=== PATIENT | female | born 1945 | race Caucasian/White ===

== ENCOUNTER 2020-02-13 01:07 | Outpatient (CLI) | payer MEDICARE, OTHER, SELFPAY ==
[2020-02-13 19:16] LABS: SARS-CoV-2 RNA PCR Negative
== END 2020-02-13 01:08 | disposition home or self-care (01) ==
LOC: ANHCOVIDDT 01:09
PROVIDERS: PCP Family Medicine; Visit Provider Internal Medicine Cardiovascular Disease
DX: Z01.818 Encounter for other preprocedural examination (principal); Z11.59 Encounter for screening for other viral diseases
CPT/HCPCS: 87635; C9803; U0003

== ENCOUNTER 2020-02-15 05:42 | Day surgery (SDC) | payer MEDICARE, OTHER, SELFPAY ==
[2020-02-14 12:44] VITALS: BMI 66.6
[2020-02-15] VITALS (9 sets, daily range): BP systolic 103–170; BP diastolic 65–118; PULSE 72–91; RESP 12–21; O2SAT 93–100
--- NOTE | 2020-02-15 07:00 | ECG_ITS ---
Measurements Intervals [place] Rate: 83 P: [place]: 0 QRS: 9 QRSD: 96 T: 66 QT: 393 QTc: 462 Interpretive Statements ATRIAL FIBRILLATION LOW QRS VOLTAGE IN PRECORDIAL LEADS BASELINE ARTIFACT- II, III, AVF ABNORMAL ECG Electronically Signed On 02-15-2020 7:40:43 CDT by Gary Rooney D.O.
[2020-02-15 08:23] LABS: Blood Urea Nitrogen 16 mg/dL (7-17); Calcium 9.4 mg/dL (8.4-10.2); Carbon Dioxide 32 mmol/L (22-30); Chloride 98 mmol/L (98-107); Estimated CRCL calculation 75 ml/min; Estimated Glomerular Filt Rate 54; Glucose 139 mg/dL (65-105); Magnesium 1.4 mg/dL (1.6-2.3); Potassium 4.2 mmol/L (3.4-5.0); Sodium 136 mmol/L (137-145)
--- NOTE | 2020-02-15 08:38 | WPDHPUPDATE1 ---
History and Physical Update Update Date/Time: 02/15/20 08:38 History and Physical has been reviewed, including an updated exam of the patient. There are NO changes in the patient's condition. Risks, benefits, and alternatives have been discussed and questions answered. Patient agrees to proceed with procedure.
--- NOTE | 2020-02-15 08:38 | WPDMODSED ---
Moderate Sedation Note-Pt Data Patient Data Diagnosis: Atrial fibrillation Present Complaint: none Procedure to be performed/Plan: Elective electrical cardioversion Allergies Allergy/AdvReac Type Severity Reaction Status Date / Time bacitracin Allergy Unknown Unknown Verified 01/30/20 08:48 neomycin Allergy Unknown Unknown Verified 01/30/20 08:48 Penicillins Allergy Unknown Unknown Verified 01/30/20 08:48 polymyxin B Allergy Unknown Unknown Verified 01/30/20 08:48 Home Medications Medication Instructions Recorded Confirmed Type duloxetine 60 mg PO DAILY 06/08/19 02/14/20 History metformin 500 mg PO BID 06/08/19 02/14/20 History modafinil 200 mg PO BID 06/08/19 02/14/20 History apixaban [Eliquis] 5 mg PO Q12HR #60 tablet 06/09/19 02/14/20 Rx lisinopril-hydrochlorothiazide 1 tablet PO DAILY 06/09/19 02/14/20 History sodium oxybate 2,250 mg PO DIRECTED 06/09/19 02/14/20 History trazodone 50 mg tablet 50 mg PO .QHS tablet 06/15/19 02/14/20 History levothyroxine 200 mcg tablet 200 mcg PO DAILY #90 tablet 10/10/19 02/14/20 Rx cephalexin 500 mg capsule 500 mg PO Q12H #10 cap 01/15/20 02/14/20 Rx ergocalciferol (vitamin D2) 1,250 50,000 unit PO WEEKLY #12 cap 01/19/20 02/14/20 Rx mcg (50,000 unit) capsule atorvastatin 10 mg tablet 10 mg PO DAILY #90 tablet 01/31/20 02/14/20 Rx amiodarone 400 mg PO DAILY 02/14/20 02/14/20 History metoprolol succinate 25 mg PO DAILY 02/14/20 02/14/20 History Current Medications: Active Medications Sodium Chloride (Normal Saline Iv) 1,000 mls @ 30 mls/hr IV CONT .Q24H KHADAR Sedation/Anesthesia: No previous sedation/anesthesia problems (including family history). Will utilize CPAP support given history of MOISE. [facility] Past Medical History Medical History CKD (chronic kidney disease) stage 3, GFR 30-59 ml/min Endometrial thickening on ultrasound Hypertensive chronic kidney disease with stage 1 through stage 4 chronic kidney disease, or unspecified chronic kidney disease Hypothyroidism, unspecified Right hip pain Type 2 diabetes mellitus with other diabetic kidney complication Family History Family History Father Hypertension Family history of coronary artery disease Social History Social History Smoking packs per day: 0.75 Smoking cigarettes per day: 15.0 Years smoked: 30 Smoking pack-years: 22.50 Smoking status: Former smoker Tobacco type: cigarettes Second hand tobacco smoke exposure: Yes Alcohol intake: current Alcohol use details: rarely Substance use: never Substance use type: does not use Living arrangements: with family Gender identity (if verbalized by the patient): Female Spiritual care concerns: No Mod Sed Physical Exam Physical Exam Pre Procedural Exam: Normal: Appearance, Eyes, Ears, Nose, Neck (Obese neck, normal range of motion), Throat (Posterior hypopharynx clear, nonerythematous), Airway (Normal anatomy, no obstruction), Lungs (Clear to auscultation bilaterally), Heart Size, Heart Rate, Neuro Exam, Abdomen, Liver, Extremities (Mild edema bilaterally) and Skin and Variation: Heart Rhythm (Irregular irregular rate and rhythm) and Extremities (Mild edema bilaterally) Hours since solid foods: 12 Hours since liquid intake: 12 Internal Medicine - PN: Obj Da Vital Signs Vital Signs: Vital Signs - 24 hr 02/15/20 07:46 Pulse Rate 91 Respiratory Rate 21 H Blood Pressure 160/118 H Pulse Oximetry 96 Meds/Results Medications: Active Medications Generic Name Dose Route Start Last Admin Trade Name Freq PRN Reason Stop Dose Admin Sodium Chloride 1,000 mls @ 30 mls/hr 02/15/20 06:00 Normal Saline Iv IV CONT .Q24H KHADAR Labs CBC & Chem 7: 02/15/20 07:43 Labs: Laboratory Results - last 24 hr 02/15/20 07:43 Sodium 136 L Potassium 4.
--- NOTE | 2020-02-15 08:41 | P.PCNCVR_ITS ---
Cardioversion Cardioversion Date of procedure: 02/15/20 Procedure: Elective electrical cardioversion Pre-op diagnosis: Atrial fibrillation Post-op diagnosis: same Indications: Atrial fibrillation Description of procedure: Brief history present illness: Patient is a pleasant 75-year-old female with history morbid obesity, persistent atrial fibrillation which she tolerates rather poorly, diabetes mellitus, hypertension, obstructive sleep apnea on CPAP who was initiated on Amiodarone approximately 4 weeks ago due to symptomatic, refractory atrial fibrillation and is now referred for elective electrical cardioversion in attempt to restore sinus rhythm. Procedure in detail: After verbal and written informed consent was obtained the patient risks, benefits, and alternatives explained in detail the patient agreed to proceed with the plan of care as outlined above. Patient was evaluated at bedside in the [facility] procedure room. On examination, neck was supple with normal range of motion, no restrictions to opening of the oral cavity, jaw angle and posterior hypopharynx was clear. Lungs were clear to auscultation. Patient was placed in appropriate 30 to 45 degree angle in a supine position. Patient was monitored throughout the study with telemetry, oxygen saturation, end-tidal CO2 monitoring, blood pressure, heart rate, and respirations. Anterior and posterior defibrillator pads placed in the appropriate positions. After confirmation of adequate sedation electrical cardioversion was carried out without complication. Patient tolerated the procedure well without difficulty. Moderate Sedation/Anesthesia administration: Patient denied previous intolerance or complications with anesthesia/sedation. Prior to beginning sedation, respiratory therapy was asked to set the patient up on CPAP given her home use for obstructive sleep apnea. Home pressure support of 15 cm of water. Please see sedation note for documentation of the pre- procedure physical examination. As noted above, after adequate local anesthesia of the posterior hypopharynx was achieved, a total of mg intravenous Versed and a total of mcg intravenous Fentanyl in multiple divided doses was utilized for moderate sedation. Sedation start time was 0850 and end time was 0903 for a total of 13 minutes [id number] intra-procedure time. Sedation was administered by a qualified observer Yossi Calderon RN under my supervision with intra-procedure [id number] observation and management throughout the entirety of the procedure. There were no other issues or complications and patient tolerated the procedure well and sedation protocol well and I was present for the entirety. Pt was satisfactorily fitted for CPAP prior to and throughout the procedure and tolerated sedation very well without complication. Elective electrical cardioversion: After confirmation of adequate sedation and persistence of atrial fibrillation, 200 joules synched biphasic energy x2 was delivered but was unsuccessful at restoring sinus rhythm. Complications: None Recommendations: Continue current medical therapy. Do not interrupt anticoagulation for at least 30 days post cardioversion. Referral to Electrophysiology for further management options for symptomatic, refractory atrial fibrillation despite excellent HR control.
--- NOTE | 2020-02-15 09:26 | SUR.PHASEII ---
0903-pt out of procedure after x2 unsuccessful cardioversion attempts. Pt remains on CPAP until she is completely awake. No distress noted. Will continue to monitor.
--- NOTE | 2020-02-15 12:46 | SUR.PHASEII ---
1030-pt given D/C orders and instructions. Questions answered and verbalized understanding. AOx4. Taken via wheelchair to waiting vehicle. No distress noted or verbalized at time of departure.
== END 2020-02-15 10:30 | disposition home or self-care (01) ==
PROVIDERS: PCP Family Medicine; Visit Provider Internal Medicine Cardiovascular Disease
PROC: 5A2204Z Restoration of Cardiac Rhythm, Single (ICD-10-PCS; principal; 2020-02-15 08:30)
DX: I48.19 Other persistent atrial fibrillation (principal); I12.9 Hypertensive chronic kidney disease with stage 1 through stage 4 chronic kidney disease, or unspecified chronic kidney disease; E11.22 Type 2 diabetes mellitus with diabetic chronic kidney disease; N18.3 Chronic kidney disease, stage 3 (moderate); G47.33 Obstructive sleep apnea (adult) (pediatric); E03.9 Hypothyroidism, unspecified; Z79.84 Long term (current) use of oral hypoglycemic drugs; Z79.01 Long term (current) use of anticoagulants; Z87.891 Personal history of nicotine dependence; E66.01 Morbid (severe) obesity due to excess calories; Z68.44 Body mass index [BMI] 60.0-69.9, adult
CPT/HCPCS: 36415; 80048; 83735; 92960; 93005; J2250; J2310; J3010; J7040

== ENCOUNTER 2020-08-07 11:57 | Inpatient (IN) | payer MEDICARE, OTHER, SELFPAY ==
[2020-08-07] VITALS (31 sets, daily range): BP systolic 128–161; BP diastolic 73–89; PULSE 68–86; RESP 17–28; TEMP 36.1–36.3; O2SAT 79–100; BMI 66.5
--- NOTE | ~2020-08-07 | XR_ITS ---
EXAMINATION: XR chest 1V portable DATE: 08/07/2020 12:27 INDICATION: Shortness of breath. Hypoxia. TECHNIQUE: frontal view of the chest was obtained. COMPARISON: Chest radiograph and CT dated 06/05/2019 FINDINGS: The lungs remain clear with no focal airspace opacities, pulmonary edema, pleural effusion or pneumot horax. Maame megaly with prominent right paracardial fat pad which is exaggerated by slight rightward rotation of the patient. Three lead pacemaker seen with leads projecting over the expected locations of the right atrial appendage, apex of the right ventricle and overlying the left ventricle likely h aving traversed the coronary sinus. IMPRESSION: 1. Cardiomegaly. Reviewed, dictated and finalized at location A. SCIENTIST IMPRESSION: 1. Cardiomegaly.
--- NOTE | ~2020-08-07 | XR_ITS ---
XR chest 1V portable 08/13/2020 08:48 Indication: CHF exacerbation Procedure: AP portable chest Comparison: 07/21/2020 Findings: Cardiomegaly. Pacemaker leads are stable. No focal air space disease, pulmonary edema, pleu ral effusion or suspected pneumothorax. Impression: 1: No acute cardiopulmonary disease. Reviewed, dictated and finalized at location A. RETTE MAKING MACHINE CATCHER Impression: 1: No acute cardiopulmonary disease.
--- NOTE | 2020-08-07 12:07 | ECG_ITS ---
Measurements Intervals [place] Rate: 72 P: [place]: 0 QRS: 165 QRSD: 182 T: 49 QT: 479 QTc: 525 Interpretive Statements ELECTRONIC VENTRICULAR PACEMAKER BASELINE ARTIFACT- I, II, AVR, AVL, AVF, V1, V3-V4 NO FURTHER INTERPRETATION IS POSSIBLE ATYPICAL ECG Electronically Signed On 08-07-2020 14:28:00 [facility]EL [place]OTA by Gary Rooney D.O.
[2020-08-07 12:16] LABS: Basophils Percent Auto 0.3 % (0.2-1.2); Eosinophils Absolute Auto 0.2 K/mm3 (0-0.3); Eosinophils Percent Auto 2.4 % (0-4.4); Hemoglobin 8.5 g/dL (12.0-15.0); Immature Granulocyte Absolute 0.04 K/mm3 (0.00-0.031); Immature Granulocyte Percent A 0.5 % (0-0.5); Lymphocytes Absolute Auto 0.73 K/mm3 (0.9-3.2); Lymphocytes Percent Auto 9.8 % (18.3-44.2); Mean Corpuscular HGB Conc 28.3 g/dl (32-36); Mean Corpuscular Hemoglobin 24.2 pg (26-34); Mean Corpuscular Volume 85.5 fl (80-100); Mean Platelet Volume 9.4 fl (7.4-10.4); Monocytes Absolute Auto 0.5 K/mm3 (0.1-0.6); Monocytes Percent Auto 6.6 % (2.6-8.5); Neutrophils Percent Auto 80.4 % (45.5-73.1); Nucleated Red Blood Cells Perc 0.3 % (0.0-0.2); Platelet Count Result 261 k/mm3 (150-375); Red Blood Count 3.51 M/mm3 (4.2-5.4); Red Cell Distribution Width 19.1 % (11.5-14.5); White Blood Count 7.4 K/mm3 (4.5-10.0)
--- NOTE | 2020-08-07 12:29 | ED.SOB ---
HPI - SOB/Dyspnea General Chief Complaint: Shortness of Breath/Dyspnea Stated Complaint: SOB, FALL IN SHOWER, R ARM PAIN Time Seen by Provider: 08/07/20 12:04 History of Present Illness HPI Narrative: Patient is a 75-year-old female who presents ER with shortness of breath. Progressive over the last 2 weeks. Not typically oxygen dependent but now requiring 3 L of oxygen via nasal cannula. Patient reports she opted to come in today because she has not been getting better and she had a fall in her shower when her stool collapsed beneath her. She did not strike her head or lose consciousness. No chest pain or chest pressure. She reports she is more swollen than typical. She reports that she has a prescription for Lasix that she does not take because it is hard to get to the bathroom. No fevers or chills or sweats. She is without cough. Related Data Home Medications Medication Instructions Recorded Confirmed modafinil 200 mg PO DAILY 06/08/19 08/07/20 sodium oxybate 4.5 g PO DIRECTED 06/09/19 08/07/20 trazodone 50 mg tablet 50 mg PO .QHS tablet 06/15/19 08/07/20 metoprolol succinate 25 mg PO DAILY 02/14/20 08/09/20 levothyroxine 200 mcg PO DAILY 08/07/20 08/07/20 modafinil 100 mg PO 1200 08/07/20 08/07/20 Allergies Allergy/AdvReac Type Severity Reaction Status Date / Time bacitracin Allergy Intermediate Swelling Verified 08/07/20 17:49 neomycin Allergy Intermediate Swelling Verified 08/07/20 17:49 Penicillins Allergy Unknown Unknown Verified 08/07/20 17:49 polymyxin B Allergy Unknown Unknown Verified 08/07/20 17:49 Review of Systems Review of Systems: All systems reviewed & are unremarkable except as noted in HPI and below Constitutional: Constitutional: Denies chills, Denies fever(s) and Reports weakness ENT: Denies nasal congestion and Denies sore throat Cardiovascular: Cardiovascular: Denies chest pain and Denies radiating jaw, neck or arm pain Respiratory: Respiratory: Denies cough, Reports dyspnea and Denies wheezing Gastrointestinal: Gastrointestinal: Denies abdominal pain, Denies nausea and Denies vomiting Musculoskeletal: Musculoskeletal: Denies joint swelling and Denies muscle cramps Comments: Edema PMFSH Past Medical History Medical History Atrial fibrillation Failed cardioversion x2. Status post AV malathi ablation and biventricular pacemaker insertion on 04/22/2020. Chronic kidney disease, stage 3 Baseline creatinine is around 1.0. 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 Family History Family History Father Hypertension Family history of coronary artery disease Social History Social History Social History: The patient lives in [facility] with her . They have 4 sons. She retired from working at the [employer] in [place]. She smoked 0.5 to 0.75 packs of cigarettes a day for about 30 years and quit in 1994. No alcohol or illicit substance abuse. Her Juan David and son Andrea are her surrogate decision makers and she is listed as a full code. Smoking packs per day: 0.75 Smoking cigarettes per day: 15.0 Years smoked: 30 Smoking pack-years: 22.50 Smoking status: Former smoker Tobacco type: cigaret
[2020-08-07 12:31] LABS: Alanine Aminotransferase 13 U/L (4-35); Alkaline Phosphatase 73 U/L (38-126); Anion Gap 7 mmol/L (8-16); Aspartate Amino Transferase 21 U/L (14-36); Bilirubin,Total 0.6 mg/dL (0.2-1.3); Blood Urea Nitrogen 18 mg/dL (7-17); Calcium 9.3 mg/dL (8.4-10.2); Carbon Dioxide 35 mmol/L (22-30); Chloride 96 mmol/L (98-107); Estimated CRCL calculation 68 ml/min; Estimated Glomerular Filt Rate 49; Glucose 143 mg/dL (65-105); Potassium 4.2 mmol/L (3.4-5.0); Sodium 138 mmol/L (137-145)
[2020-08-07 12:35] LABS: Eosinophils Absolute Manual 0.22 K/mm3 (0.02-0.5); Eosinophils Percent Manual 3 % (0-4); Hypochromasia 2+ (NORMAL); Lymphocytes Absolute Manual 0.59 K/mm3 (1.1-4.5); Monocytes Absolute Manual 0.22 K/mm3 (0.1-0.90); Monocytes Percent Manual 3 % (3-9); Neutrophils Percent Manual 86 % (46-73); Platelet Estimate Adequate (Adequate); Total Cells Counted 100
[2020-08-07 12:36] LABS: Anisocytosis 1+ (NORMAL); Stomatocytes 1+ (NORMAL)
[2020-08-07 13:05] LABS: NT Pro B Type Natriuretic Pept 1610 PG/ML (5-100)
[2020-08-07 13:13] LABS: INR 1.6; Prothrombin Time 19.5 Seconds (11.1-14.7)
[2020-08-07 13:14] LABS: Partial Thromboplastin Time 35.4 SECONDS (22.3-36.8)
[2020-08-07] MEDS: FUROSEMIDE INJ 40 MG/4 ML VIAL IV PUSH ×2 (14:31→21:01)
--- NOTE | 2020-08-07 15:37 | PC.NURSE ---
ATTEMPTED TO CALL REPORT AT THIS TIME, INFORMED THAT THE RN IS AT LUNCH AND THE ROOM IS DIRTY. TO CALL BACK.
--- NOTE | 2020-08-07 15:51 | PC.NURSE ---
REPORT TO RN LORI AT THIS TIME, NO FURTHER CONCERNS, ROOM IS STILL DIRTY PER RN.
--- NOTE | 2020-08-07 17:26 | ADMGEN ---
This patient, Lesvia Pop, was admitted to Medical Room 347-01. Patient/family oriented to hospital policies and general routines including ID bracelet, bed and alarms, visiting hours, pain management, procedures, bathroom and other care routines, personal items, smoking policy, room service/diet, and visiting hours. Information on how to activate the Rapid Response Team has been discussed. Patient/Family are encouraged to report perceived risks to care and to ask questions if they do not understand what they are told or what they should do.
[2020-08-07 18:18] LABS: Base Excess ABG 4.4 mEq/l (+/-2.0); Carboxyhemoglobin 0.2 % THb (0-2.0); Fractional Inspired Oxygen 32 %; HCO3 ABG 29.9 mEq/l (22.0-26.0); Methemoglobin ABG 0.3 %THb (0-1.5); Oxygen Content ABG 12.6 %vol (16.0-22.0); Oxygen Saturation ABG 98.1 % (95.0-100.0); Oxyhemoglobin 96.7 % THb (90.0-100.0); PCO2 ABG 49.7 mmHg (35.0-45.0); PO2 FiO2 Ratio Arterial Blood 3.53 %; Reduced Hemoglobin 2.8 %THb (0-5.0); Total Hemoglobin 9.1 g/dL (12.0-18.0); pH ABG 7.397 (7.350-7.450)
[2020-08-07 18:19] LABS: Device NASAL CANNULA; Modified Allen's Test Pass; Site Drawn RIGHT RADIAL
[2020-08-07 18:44] LABS: Immature Reticulocyte Fraction 32.8 % (3.0-15.9); Reticulocyte Hemoglobin Conten 22.7 pg (28.2-35.7); Reticulocyte Percent 2.79 % (0.7-4.3)
[2020-08-07 18:53] LABS: Hemoglobin A1C 6.3 % (<5.7)
--- NOTE | 2020-08-07 19:00 | PM.IMHP ---
H&P: HPI History of Present Illness Date/Time: 08/07/20 19:00 Chief Complaint: Shortness of breath. Narrative: Lesvia Pop is a 75-year-old female with atrial fibrillation status post cardiac ablation and Bi V pacemaker insertion, chronic anemia, type 2 diabetes mellitus, hypothyroidism, morbid obesity, obstructive sleep apnea, and narcolepsy presented to the emergency department earlier today via EMS for evaluation after a fall as well as increasing shortness of breath over the past 2 weeks. She was in the shower this morning when her shower chair collapsed beneath her, and EMS was summoned for a lift assist. She sustained no injury in the fall and denies head trauma and loss of consciousness. On their arrival she was noted to be hypoxic and short of breath and with further questioning she mentions that she has had progressive dyspnea on lesser and lesser exertion over the past month and a half. In fact she was seen by Dr. Cox at the beginning of June at which time he told her to double up on her Lasix for 5 days. Unfortunately she has gotten worse instead of better. It is also noted that she has become progressively more anemic with a hemoglobin of 12.6 on 04/22/2020, 9.0 on 06/14/2020, and 8.50 today. She has been on Eliquis for greater than 1 year and has not noticed any bleeding. She does have hemorrhoids which rarely bleed, nothing recent. No dark stools. No epistaxis, melena, or hematuria. She denies chest pain, epigastric pain, abdominal pain, nausea, vomiting, pleuritic pain, orthopnea, and PND. Review of Systems Review of Systems: Narrative: Twelve systems were reviewed with pertinent positives and negatives as per HPI. No fever, chills, or sweats. No recent cold or flu symptoms. She denies cough. No exposure to those positive for COVID-19. She denies dysuria. She believes her diabetes is well controlled. No polydipsia, polyuria, or blurry vision. Except as documented, all other systems were reviewed and are negative. [facility] Past Medical History Medical History (Updated 08/07/20 @ 18:18 by Lisa Roland PA-C) Atrial fibrillation Failed cardioversion x2. Status post AV malathi ablation and biventricular pacemaker insertion on 04/22/2020. Chronic kidney disease, stage 3 Baseline creatinine is around 1.0. 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 Hypertension Hypothyroidism Morbid obesity Narcolepsy Obstructive sleep apnea on CPAP Osteoarthritis Restless leg syndrome Type 2 diabetes mellitus Urinary Incontinence Vitamin D deficiency Surgical History Surgical History (Updated 08/07/20 @ 18:11 by Lisa Roland PA-C) History of atrioventricular malathi ablation (~04/22/20) History of bilateral cataract extraction History of dilation and curettage History of laparoscopic adjustable gastric banding (~2012) Status post biventricular cardiac pacemaker insertion (~04/22/20) Status post excision of Ulloa's neuroma Left 3rd toe. Family History Family History Father Hypertension Family history of coronary artery disease Social History Social History (Updated 08/07/20 @ 18:12 by Lisa Roland PA-C) Social History: The patient lives in [facility] with her . They have 4 sons. She retired from working at the [employer] in [place]. She smoked 0.5 to 0.75 packs of cigarettes a day for about 30 years and quit in 1994. No alcohol or illicit substance abuse. Her Juan David and son Andrea are her surrogate decision makers and she is listed as a full code. Smoking packs per day: 0.75 Smoking cigarettes per day: 15.0 Years smoked: 30 Smoking pack-years: 22.50 Smoking status: Former smoker Tobacco type: cigarettes Second hand tobacco smoke exposure: Yes Alcohol intake: former Substance use: never Substance use type: does not use Gender identity (if verbalized by the patient): F
[2020-08-07 19:04] LABS: Transferrin 337 mg/dL (206-381)
[2020-08-07 19:31] LABS: Iron 35 ug/dL (37-170)
[2020-08-07 19:40] LABS: Percent Iron Saturation 7 % (20-50)
[2020-08-07 20:04] LABS: Folic Acid > 20.0 ng/mL (2.76->20)
[2020-08-07 21:13] LABS: Glucose Point of Care 162 (65-105)
[2020-08-08] VITALS (12 sets, daily range): BP systolic 133–144; BP diastolic 78–87; PULSE 69–73; RESP 16–18; TEMP 36.1–36.8; O2SAT 90–96
[2020-08-08] MEDS: ACETAMINOPHEN 325 MG TABLET 650 MG PO (05:16)
[2020-08-08] MEDS: LEVOTHYROXINE SODIUM 100 MCG TABLET 200 MCG PO (05:17)
[2020-08-08 06:09] LABS: Hematocrit 28.4 % (37.0-47.0); Hemoglobin 7.7 g/dL (12.0-15.0); Mean Corpuscular HGB Conc 27.1 g/dl (32-36); Mean Corpuscular Hemoglobin 23.2 pg (26-34); Mean Corpuscular Volume 85.5 fl (80-100); Mean Platelet Volume 9.3 fl (7.4-10.4); Platelet Count Result 264 k/mm3 (150-375); Red Blood Count 3.32 M/mm3 (4.2-5.4); Red Cell Distribution Width 19.1 % (11.5-14.5); White Blood Count 6.5 K/mm3 (4.5-10.0)
[2020-08-08 06:23] LABS: Anion Gap 5 mmol/L (8-16); Blood Urea Nitrogen 16 mg/dL (7-17); Calcium 9.3 mg/dL (8.4-10.2); Carbon Dioxide 39 mmol/L (22-30); Chloride 94 mmol/L (98-107); Estimated CRCL calculation 72 ml/min; Estimated Glomerular Filt Rate 49; Glucose 137 mg/dL (65-105); Magnesium 1.5 mg/dL (1.6-2.3); Potassium 3.7 mmol/L (3.4-5.0); Sodium 138 mmol/L (137-145)
[2020-08-08 07:38] LABS: Glucose Point of Care 126 (65-105)
[2020-08-08] MEDS: ATORVASTATIN 10 MG TABLET PO (08:06)
[2020-08-08] MEDS: MAGNESIUM OXIDE 400 MG TABLET 800 MG PO (08:06)
[2020-08-08] MEDS: FUROSEMIDE INJ 40 MG/4 ML VIAL IV PUSH ×3 (08:06→16:51)
[2020-08-08] MEDS: DULoxetine HCL 60 MG CAPSULE.DR PO (08:06)
[2020-08-08] MEDS: modafiniL (*CRX) 200 MG TABLET PO (08:06)
[2020-08-08] MEDS: APIXABAN 5 MG TABLET PO ×2 (08:06→21:26)
[2020-08-08] MEDS: METOPROLOL SUCCINATE EXT REL 25 MG TABCR 75 MG PO (08:07)
--- NOTE | 2020-08-08 10:32 | PM.IMPN ---
Progress Note: A&P Assessment and Plan (1) Respiratory failure with hypoxia: Code(s): J96.91 - Respiratory failure, unspecified with hypoxia Status: Acute Assessment and Plan: Pt is stable on 1 liter presently and CPAP at night SOB secondary to CHF exacerbation, Morbidity hypoventilation syndrome Will start diuretics and consult cardiology (2) Normocytic anemia: Code(s): D64.9 - Anemia, unspecified Status: Acute Assessment and Plan: Hb is 7.7 (3) Fall from chair: Code(s): W07.XXXA - Fall from chair, initial encounter Status: Acute (4) Narcolepsy: Code(s): G47.419 - Narcolepsy without cataplexy Status: Acute Assessment and Plan: History of narcolepsy (5) Morbid obesity: Code(s): E66.01 - Morbid (severe) obesity due to excess calories Status: Acute Assessment and Plan: Bedridden (6) Chronic kidney disease, stage 3: Code(s): N18.30 - Chronic kidney disease, stage 3 unspecified Status: Inactive Assessment and Plan: CReat is 1.1 (7) Atrial fibrillation: Code(s): I48.91 - Unspecified atrial fibrillation Status: Acute Assessment and Plan: HIstory of Af and ICD (8) Dyslipidemia: Code(s): E78.5 - Hyperlipidemia, unspecified Status: Acute Assessment and Plan: on statin (9) Type 2 diabetes mellitus: Code(s): E11.9 - Type 2 diabetes mellitus without complications Status: Inactive Assessment and Plan: accuchecks, SSI (10) Obstructive sleep apnea on CPAP: Code(s): G47.33 - Obstructive sleep apnea (adult) (pediatric); Z99.89 - Dependence on other enabling machines and devices Status: Acute Assessment and Plan: Uses Cpap (11) Hypothyroidism: Code(s): E03.9 - Hypothyroidism, unspecified Status: Inactive Assessment and Plan: On levothyroxine (12) Generalized weakness: Code(s): R53.1 - Weakness Status: Acute Assessment and Plan: PT/ OT (13) Hypertension: Code(s): I10 - Essential (primary) hypertension Status: Chronic Assessment and Plan: MOnitor Bp Subjective Date/time seen: 08/08/20 10:32 Interval history: Donn is a 75-year-old female with atrial fibrillation status post cardiac ablation and Bi V pacemaker insertion, chronic anemia, type 2 diabetes mellitus, hypothyroidism, morbid obesity, obstructive sleep apnea, and narcolepsy presented to the emergency department earlier today via EMS for evaluation after a fall as well as increasing shortness of breath over the past 2 weeks. Pt looks swollen feet legs abdomen history of CHF Cxr shows cardiomegaly. Review of Systems Review of Systems: All systems reviewed & are unremarkable except as noted in HPI and below Exam Narrative: Exam Narrative: General: Morbidly obese female Neck: Supple. large neck Respiratory: Lung sounds are diminished due to body habitus. Cardiovascular: Regular rate and rhythm with S1-S2. Gastrointestinal: Abdomen is morbidly obese with positive bowel sounds. Positive leg edema Skin: Warm and dry. Extremities: No cyanosis or clubbing. 3+ edema up to the flanks. Neurological: Alert and oriented x4. Cranial nerves 2-12 are grossly intact. No gross focal deficits to casual conversation. Psychiatric: Pleasant and cooperative with normal mood and affect. Judgment and insight intact. Objective Data Vital Signs Vital Signs: Vital Signs - 24 hr 08/07/20 11:53 08/07/20 12:03 08/07/20 12:04 Temperature 36.3 C L Pulse Rate 73 73 78 Respiratory Rate 28 H 24 H 22 H Blood Pressure 150/82 H 150/82 H Pulse Oximetry 79 L 100 100 08/07/20 12:08 08/07/20 12:26 08/07/20 12:30 Temperature Pulse Rate 86 71 70 Respiratory Rate 23 H 21 H Blood Pressure Pulse Oximetry 100 100 99 08/07/20 12:31 08/07/20 12:45 08/07/20 13:02 Temperature Pulse Rate 70 73 70 Re
--- NOTE | 2020-08-08 11:25 | PM.CNCAR ---
Assessment and Plan Assessment and plan (1) Normocytic anemia: Code(s): D64.9 - Anemia, unspecified Status: Acute Assessment and Plan: pt on eliquis qith gradual dropn in HB. ferritin 12 recommend GI consult. (2) CHF exacerbation: Code(s): I50.9 - Heart failure, unspecified Status: Acute Assessment and Plan: diastolic HF. increase lasix to 40 mg tid History of Present Illness History of Present Illness Consult date/time: Date of service: 08/08/20 11:25 Requesting physician: Samantha Kaufman MD Consult reason: congestive heart failure Reason For Visit: Hypoixia/CHF/Anemia Narrative: this is 75-year-old female with past medical history of hyperlipidemia, diabetes, diastolic heart failure, AFib status post AV node ablation on Eliquis( she also had cardioversion 02/2020), biventricularpacemaker, narcolepsy, morbid obesity who follows up with Dr. perales. apparently patient was in the shower was sitting in a chair and then the chest collapsed underneath her. she was getting short of breath and called EMS. shortness of breath started a couple days before that. Shortness of breath was progressively getting worse. apparently informed the patient to increase her Lasix for 5 days but his shortness of breath got worse. she is currently hypoxic requiring oxygen.Apparently a hemoglobin was 12.5 in April and currently 8.5.And today 7.7. she denies chest pain, dizziness, syncope. Creatinine 1.1, magnesium 1.5, hemoglobin today 7.7, chest x-ray reviewed myself shows cardiomegaly and congestion. EKG revealed massive shows ventricular paced rhythm. Review of Systems Constitutional: Constitutional: Denies chills, Denies fever(s) and Denies poor appetite Eyes: Eyes: Denies eye discharge, Denies loss of vision, Denies eye pain and Denies photophobia ENT: Denies dizziness, Denies epistaxis, Denies nasal congestion and Denies sore throat Cardiovascular: Cardiovascular: Denies chest pain, Denies syncope, Denies pedal edema, Denies palpitations, Reports dyspnea, Reports dyspnea on exertion and Reports orthopnea Respiratory: Respiratory: Denies cough, Reports dyspnea, Reports dyspnea on exertion and Denies wheezing Gastrointestinal: Gastrointestinal: Denies abdominal pain, Denies diarrhea, Denies nausea and Denies vomiting Genitourinary: Genitourinary: Denies hematuria, Denies genital lesions and Denies dysuria Musculoskeletal: Musculoskeletal: Denies arthralgias, Denies joint swelling and Denies numbness Integumentary/Breasts: Skin/Breast: Denies pruritus and Denies rash Neurologic: Denies dizziness, Denies syncope, Denies loss of vision and Denies numbness Psychiatric: Psychiatric: Denies anxiety and Denies depression Endocrine: Endocrine: Denies cold intolerance, Denies heat intolerance and Denies palpitations Hematologic/Lymphatic: Hematologic/Lymphatic: Denies easy bleeding and Denies easy bruising Allergic/Immunologic: Allergic/Immunologic: Denies urticaria and Denies wheezing PMFSH Past Medical History Medical History Atrial fibrillation Failed cardioversion x2. Status post AV malathi ablation and biventricular pacemaker insertion on 04/22/2020. Chronic kidney disease, stage 3 Baseline creatinine is around 1.0. 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 Hypertension Hypothyroidism Morbid obesity Narcolepsy Obstructive sleep apnea on CPAP Osteoarthritis Restless leg syndrome Type 2 diabetes mellitus Urinary Incontinence Vitamin D deficiency Surgical History Surgical History History of atrioventricular malathi ablation (~04/22/20) History of bilateral cataract extraction History of dilation and curettage History of laparoscopic adjustable gastric banding (~2012) Status post biventricular cardiac pacemaker insertion (~04/22/20) S
[2020-08-08 11:54] LABS: Glucose Point of Care 99 (65-105)
--- NOTE | 2020-08-08 12:28 | PC.NURSE ---
Increase Furosemide to TID for today, kidney function lab work tomorrow will determine whether we will stay TID or decrease back down to BID.
[2020-08-08] MEDS: modafiniL (*CRX) 100 MG TABLET PO (13:07)
--- NOTE | 2020-08-08 16:21 | WPDGIPROGNO ---
Progress Note: A&P Additional Plan LU. constipation Venofer Endoscopy when stable Miralax #[id number] Subjective Date/time seen: 08/08/20 16:21 Objective Data Vital Signs Vital Signs: Vital Signs - 24 hr 08/07/20 16:40 08/07/20 18:20 08/07/20 18:32 Temperature Pulse Rate 70 Respiratory Rate 19 Blood Pressure 148/73 H Pulse Oximetry 100 100 96 08/07/20 20:00 08/07/20 20:56 08/07/20 21:00 Temperature 36.1 C L Pulse Rate 70 73 70 Respiratory Rate 17 18 Blood Pressure 141/74 H Pulse Oximetry 99 94 08/07/20 21:51 08/08/20 00:00 08/08/20 04:00 Temperature Pulse Rate 70 70 70 Respiratory Rate 18 Blood Pressure Pulse Oximetry 94 08/08/20 05:13 08/08/20 08:00 08/08/20 08:07 Temperature 36.8 C Pulse Rate 70 73 69 Respiratory Rate 18 Blood Pressure 133/83 Pulse Oximetry 94 93 08/08/20 10:40 08/08/20 12:00 08/08/20 14:00 Temperature 36.1 C L Pulse Rate 73 72 Respiratory Rate 16 Blood Pressure 144/78 H Pulse Oximetry 90 95 Intake/Output Intake/Output: Intake & Output 08/05/20 08/06/20 08/07/20 08/08/20 23:59 23:59 23:59 23:59 Intake Total 240 1180 Output Total 1300 1800 Balance -1060 -620 Meds/Results Medications: Active Medications Generic Name Dose Route Start Last Admin Trade Name Freq PRN Reason Stop Dose Admin Acetaminophen 650 mg 08/07/20 14:26 08/08/20 05:16 Acetaminophen 325 Mg Tablet PO 650 mg Q4H PRN Administration Mild Pain (1-3) or Fever Hydrocodone Bitart/Acetaminophen 1 tab 08/07/20 14:26 Hydrocodone/Acetaminophen (*Crx) 5-325 Mg Tablet PO Q4H PRN Pain Rated 4-6 Apixaban 5 mg 08/08/20 09:00 08/08/20 08:06 Apixaban 5 Mg Tablet PO 5 mg Q12HR KHADAR Administration Atorvastatin Calcium 10 mg 08/08/20 09:00 08/08/20 08:06 Atorvastatin 10 Mg Tablet PO 10 mg DAILY KHADAR Administration Dextrose 12.5 gm 08/07/20 18:14 Dextrose 50% 25 Gm/50 Ml Syringe IV PUSH PRN PRN Hypoglycemia Protocol Duloxetine HCl 60 mg 08/08/20 09:00 08/08/20 08:06 Duloxetine Hcl 60 Mg Capsule.Dr PO 60 mg DAILY KHADAR Administration Ergocalciferol 50,000 unit 08/11/20 09:00 Ergocalciferol 50,000 Unit Capsule PO WEEKLY KHADAR Furosemide 40 mg 08/08/20 13:00 08/08/20 13:02 Furosemide Inj 40 Mg/4 Ml Vial IV PUSH 40 mg TID KHADAR Administration Glucagon 1 mg 08/07/20 18:14 Glucagon For Inj 1 Mg Vial IM PRN PRN Hypoglycemia Protocol Glucose 15 gm 08/07/20 18:14 Glucose Oral Gel 15 Gm Of Glucse In 37.5 Gm Tube PO PRN PRN Hypoglycemia Protocol Dextrose 1,000 mls @ 100 mls/hr 08/07/20 18:14 Dextrose 5% 1,000 Ml IVPB PRN PRN Hypoglycemia Protocol Insulin Aspart 2 - 5 units 08/07/20 17:00 08/08/20 12:13 Insulin Aspart (*Bkc) 100 Units/Ml SUB-Q Not Given TIDWM [facility] Protocol Levothyroxine Sodium 200 mcg 08/08/20 06:30 08/08/20 05:17 Levothyroxine Sodium 100 Mcg Tablet PO 200 mcg DAILY@0630 KHADAR Administration Magnesium Oxide 800 mg 08/08/20 09:00 08/08/20 08:06 Magnesium Oxide 400 Mg Tablet PO 800 mg DAILY KHADAR Administration Metoprolol Succinate 75 mg 08/08/20 09:00 08/08/20 08:07 Metoprolol Succinate Ext Rel 25 Mg Tabcr PO 75 mg DAILY KHADAR Administration Modafinil 100 mg 08/08/20 12:00 08/08/20 13:07 Modafinil (*Crx) 100 Mg Tablet PO 100 mg 1200 KHADAR Administration Modafinil 200 mg 08/08/20 09:00 08/08/20 08:06 Modafinil (*Crx) 200 Mg Tablet PO 200 mg DAILY KHADAR Administration Morphine Sulfate 4 mg 08/07/20 14:26 Morphine Sulfate (*Crx) 4 Mg/Ml Inj IV PUSH Q2H PRN Pain Rated 7-10 Ondansetron HCl 4 mg 08/07/20 14:26 Ondansetron Inj 4 Mg/2 Ml Vial IV PUSH Q4H PRN Nausea Trazodone HCl 50 mg 08/08/20 01:30 08/08/20 02:27 Trazodone Hcl 50 Mg Tablet PO Not Given HS KHADAR Radiology Resul
[2020-08-08 16:42] LABS: Glucose Point of Care 120 (65-105)
--- NOTE | 2020-08-08 20:01 | CONS_ITS ---
DATE OF CONSULTATION: 08/08/2020 HISTORY OF PRESENT ILLNESS: A 75-year-old female with history of atrial fibrillation status post ablation, biventricular pacemaker, chronic blood loss anemia, type 2 diabetes, chronic kidney disease, hypothyroidism, morbid obesity, failed lap band surgery, MOISE/CPAP, narcolepsy, hypertension, hyperlipidemia, osteoarthritis, restless legs syndrome, urinary incontinence, vitamin D deficiency, bilateral cataract extraction, and D and C, who presents with increasing shortness of breath and fall. She is being treated for CHF. I am now asked to provide GI evaluation at the request of the hospitalist service. Primary care provider is Dr. Masood Mccartney and primary lumber cutter is Dr. Hua Sarabia. The patient complains of mild constipation with bowel movements every 2-3 days with some straining. Partially improved with stool softeners. She has easy bruising. She otherwise denies abdominal pain, nausea, vomiting, heartburn, trouble swallowing, loss of appetite or weight, diarrhea, hematochezia, melena, fever, jaundice, scleral icterus, dark urine, light stools, itching, hot or cold intolerance, chest pain, hematuria, dysuria, new cough or visual changes, tingling of the skin, bone pain, or tremors. No endocarditis risk factors. ALLERGIES: ALLERGY TO PENICILLIN AND TRIPLE ANTIBIOTIC OINTMENT. MEDICATIONS: See list, but includes Eliquis. SOCIAL HISTORY: Nonsmoker, nondrinker. FAMILY HISTORY: Negative for GI malignancy. Her last colonoscopy was approximately [address] Sarabia, reportedly unremarkable. PHYSICAL EXAMINATION: GENERAL: Obese female, seated in her chair, in no apparent distress. She has 4+ bilateral lower extremity edema. No jaundice, spider angioma, palmar erythema. HEENT: Skull is normocephalic, atraumatic. Pupils nonicteric. Oropharynx clear. NECK: Supple without thyromegaly. LUNGS: Bibasilar crackles. HEART: Irregular. ABDOMEN: Normoactive bowel sounds. Soft, nontender, nonrigid, nondistended without hepatosplenomegaly or masses. RECTAL: Deferred. NEURO: Conscious and alert x3. LABORATORY DATA: On October 17, 2019, hematocrit 39. On admission, hemoglobin 8, hematocrit 28, MCV 86. Creatinine 1.1. INR is 1.6. LFTs are normal. Ferritin is 12. Retic count 2.8. Troponin T is 0.22. ASSESSMENT AND PLAN: A. Iron deficiency anemia in patient on Eliquis: - Concern for gastrointestinal source of blood loss including ulceration, arteriovenous malformation malignancy, or polyp - Consider colonoscopy, possible EGD, possible capsule endoscopy when stable from the cardiopulmonary standpoint - Follow H and H and transfuse as needed - Care with aspirin, nonsteroidals, and anticoagulants - IV iron while in hospital, changing to oral iron as outpatient - No active gastrointestinal bleed B. Constipation: consider bowel regimen MiraLAX. Thank you for allowing me to share in the care of this complex patient. I will continue to follow. RAUL CORNELIUS M.D. CC:? Shahbaz Jung M.D. VOICE OVER ARTIST VOICE OVER ARTIST D I MT: Yakelin AMATO
[2020-08-08] MEDS: traZODone HCL 50 MG TABLET PO (21:26)
[2020-08-08 21:32] LABS: Glucose Point of Care 123 (65-105)
[2020-08-09] VITALS (12 sets, daily range): BP systolic 128–144; BP diastolic 67–78; PULSE 69–85; RESP 18–20; TEMP 35.7–36.2; O2SAT 90–100
[2020-08-09] MEDS: LEVOTHYROXINE SODIUM 100 MCG TABLET 200 MCG PO (06:07)
[2020-08-09 06:11] LABS: Hematocrit 30.7 % (37.0-47.0); Hemoglobin 8.4 g/dL (12.0-15.0); Mean Corpuscular HGB Conc 27.4 g/dl (32-36); Mean Corpuscular Hemoglobin 23.5 pg (26-34); Mean Platelet Volume 9.7 fl (7.4-10.4); Platelet Count Result 292 k/mm3 (150-375); Red Blood Count 3.57 M/mm3 (4.2-5.4); Red Cell Distribution Width 18.7 % (11.5-14.5); White Blood Count 7.7 K/mm3 (4.5-10.0)
[2020-08-09 06:32] LABS: Blood Urea Nitrogen 18 mg/dL (7-17); Calcium 9.5 mg/dL (8.4-10.2); Carbon Dioxide > 40 mmol/L (22-30); Chloride 91 mmol/L (98-107); Estimated CRCL calculation 72 ml/min; Estimated Glomerular Filt Rate 49; Glucose 131 mg/dL (65-105); Potassium 3.5 mmol/L (3.4-5.0); Sodium 136 mmol/L (137-145)
[2020-08-09] MEDS: modafiniL (*CRX) 200 MG TABLET PO (09:07)
[2020-08-09] MEDS: FUROSEMIDE INJ 40 MG/4 ML VIAL IV PUSH ×3 (09:07→17:39)
[2020-08-09] MEDS: ATORVASTATIN 10 MG TABLET PO (09:08)
[2020-08-09] MEDS: APIXABAN 5 MG TABLET PO ×2 (09:08→21:45)
[2020-08-09] MEDS: DULoxetine HCL 60 MG CAPSULE.DR PO (09:08)
[2020-08-09] MEDS: MAGNESIUM OXIDE 400 MG TABLET 800 MG PO (09:08)
[2020-08-09 09:37] LABS: Glucose Point of Care 133 (65-105)
--- NOTE | 2020-08-09 11:32 | WPDGIPROGNO ---
Progress Note: A&P Additional Plan GI Tam for No 09 Aug 2019 No gi complaints. Less SOB. VSS soft/NT + [place] Hct 31. Retic 2.8. Cr 1.1 LABORATORY DATA: On October 17, 2019, hematocrit 39. On admission, hemoglobin 8, hematocrit 28, MCV 86. Creatinine 1.1. INR is 1.6. LFTs are normal. Ferritin is 12. Retic count 2.8. Troponin T is 0.22. ASSESSMENT AND PLAN: A. Iron deficiency anemia in patient on Eliquis: - Concern for gastrointestinal source of blood loss including ulceration, arteriovenous malformation malignancy, or polyp - Consider colonoscopy, possible EGD, possible capsule endoscopy when stable from the cardiopulmonary standpoint - Follow H and H and transfuse as needed - Care with aspirin, nonsteroidals, and anticoagulants - IV iron while in hospital, changing to oral iron as outpatient - No active gastrointestinal bleed B. Constipation: consider bowel regimen MiraLAX. WILLIAM Jones [phone] Subjective Date/time seen: 08/09/20 11:32 Objective Data Vital Signs Vital Signs: Vital Signs - 24 hr 08/08/20 12:00 08/08/20 14:00 08/08/20 16:00 Temperature 36.1 C L Pulse Rate 73 72 70 Respiratory Rate 16 Blood Pressure 144/78 H Pulse Oximetry 95 08/08/20 20:00 08/08/20 22:00 08/08/20 23:05 Temperature 36.4 C L Pulse Rate 72 71 72 Respiratory Rate 18 18 Blood Pressure 139/87 Pulse Oximetry 96 96 94 08/09/20 00:00 08/09/20 04:00 08/09/20 06:00 Temperature 36.2 C L Pulse Rate 71 70 70 Respiratory Rate 20 Blood Pressure 143/78 H Pulse Oximetry 98 08/09/20 11:08 Temperature Pulse Rate Respiratory Rate Blood Pressure Pulse Oximetry 96 Intake/Output Intake/Output: Intake & Output 08/06/20 08/07/20 08/08/20 08/09/20 23:59 23:59 23:59 23:59 Intake Total 240 1620 470 Output Total 1300 2200 800 Balance -1060 -580 -330 Meds/Results Medications: Active Medications Generic Name Dose Route Start Last Admin Trade Name Freq PRN Reason Stop Dose Admin Acetaminophen 650 mg 08/07/20 14:26 08/08/20 05:16 Acetaminophen 325 Mg Tablet PO 650 mg Q4H PRN Administration Mild Pain (1-3) or Fever Hydrocodone Bitart/Acetaminophen 1 tab 08/07/20 14:26 Hydrocodone/Acetaminophen (*Crx) 5-325 Mg Tablet PO Q4H PRN Pain Rated 4-6 Apixaban 5 mg 08/08/20 09:00 08/09/20 09:08 Apixaban 5 Mg Tablet PO 5 mg Q12HR KHADAR Administration Atorvastatin Calcium 10 mg 08/08/20 09:00 08/09/20 09:08 Atorvastatin 10 Mg Tablet PO 10 mg DAILY KHADAR Administration Dextrose 12.5 gm 08/07/20 18:14 Dextrose 50% 25 Gm/50 Ml Syringe IV PUSH PRN PRN Hypoglycemia Protocol Duloxetine HCl 60 mg 08/08/20 09:00 08/09/20 09:08 Duloxetine Hcl 60 Mg Capsule.Dr PO 60 mg DAILY KHADAR Administration Ergocalciferol 50,000 unit 08/11/20 09:00 Ergocalciferol 50,000 Unit Capsule PO WEEKLY KHADAR Furosemide 40 mg 08/08/20 13:00 08/09/20 09:07 Furosemide Inj 40 Mg/4 Ml Vial IV PUSH 40 mg TID KHADAR Administration Glucagon 1 mg 08/07/20 18:14 Glucagon For Inj 1 Mg Vial IM PRN PRN Hypoglycemia Protocol Glucose 15 gm 08/07/20 18:14 Glucose Oral Gel 15 Gm Of Glucse In 37.5 Gm Tube PO PRN PRN Hypoglycemia Protocol Dextrose 1,000 mls @ 100 mls/hr 08/07/20 18:14 Dextrose 5% 1,000 Ml IVPB PRN PRN Hypoglycemia Protocol Insulin Aspart 2 - 5 units 08/07/20 17:00 08/09/20 09:01 Insulin Aspart (*Bkc) 100 Units/Ml SUB-Q Not Given TIDWM [facility] Protocol Levothyroxine Sodium 200 mcg 08/08/20 06:30 08/09/20 06:07 Levothyroxine Sodium 100 Mcg Tablet PO 200 mcg DAILY@0630 KHADAR Administration Magnesium Oxide 800 mg 08/08/20 09:00 08/09/20 09:08 Magnesium Oxide 400 Mg Tablet PO 800 mg DAILY KHADAR Administration Metoprolol Succinate 25 mg 08/09/20 10:30 Metoprolol Succinate Ext Rel 25 Mg Tabcr PO DAILY KHADAR Mod
[2020-08-09 11:49] LABS: Glucose Point of Care 113 (65-105)
--- NOTE | 2020-08-09 11:59 | PM.PNCARD ---
Progress Note: A&P Assessment and Plan (1) CHF exacerbation: Code(s): I50.9 - Heart failure, unspecified Status: Acute Assessment and Plan: Acute on chronic heart failure with preserved ejection fraction. Responding well to IV Lasix increased to 40 mg t.i.d.. May be able to reduce in a.m.. Potassium chloride 40 mg p.o. x1 today, 20 MEQ p.o. daily. Check BMP and magnesium in a.m.. Accurate input and output, daily weight. (2) Normocytic anemia: Code(s): D64.9 - Anemia, unspecified Status: Acute Assessment and Plan: pt on eliquis, H&H stable. Appreciate GI recommendations. Plan for endoscopy on Wednesday. Anticipate will need to hold systemic anticoagulation beginning tomorrow per GI. Will clarify with him. (3) Presence of biventricular cardiac pacemaker: Code(s): Z95.0 - Presence of cardiac pacemaker Status: Acute Assessment and Plan: Predominantly V paced on telemetry. (4) Atrial fibrillation: Code(s): I48.91 - Unspecified atrial fibrillation Status: Acute Assessment and Plan: As above, status post AV malathi ablation. Remains on systemic anticoagulation. Subjective Date/time seen: Date of service: 08/09/20 11:59 Follow-up for CHF, atrial fibrillation Feels little better. Urinating quite frequently, dyspnea improved but still short of breath with any activity, edema improving. No chest pain, palpitations or dizziness. Review of Systems Constitutional: Constitutional: Denies chills, Denies fever(s) and Denies poor appetite Eyes: Eyes: Denies eye discharge, Denies loss of vision, Denies eye pain and Denies photophobia ENT: Denies dizziness, Denies epistaxis, Denies nasal congestion and Denies sore throat Cardiovascular: Cardiovascular: Denies chest pain, Denies syncope, Denies pedal edema, Denies palpitations, Reports dyspnea, Reports dyspnea on exertion and Reports orthopnea Respiratory: Respiratory: Denies cough, Reports dyspnea, Reports dyspnea on exertion and Denies wheezing Gastrointestinal: Gastrointestinal: Denies abdominal pain, Denies diarrhea, Denies nausea and Denies vomiting Genitourinary: Genitourinary: Denies hematuria, Denies genital lesions and Denies dysuria Musculoskeletal: Musculoskeletal: Denies arthralgias, Denies joint swelling and Denies numbness Integumentary/Breasts: Skin/Breast: Denies pruritus and Denies rash Neurologic: Denies dizziness, Denies syncope, Denies loss of vision and Denies numbness Psychiatric: Psychiatric: Denies anxiety and Denies depression Endocrine: Endocrine: Denies cold intolerance, Denies heat intolerance and Denies palpitations Hematologic/Lymphatic: Hematologic/Lymphatic: Denies easy bleeding and Denies easy bruising Allergic/Immunologic: Allergic/Immunologic: Denies urticaria and Denies wheezing Exam Const: General: cooperative, comfortable, no acute distress, alert and awake Nutritional Appearance: obese Orientation/consciousness: patient oriented x3 HENMT: Head: normal to inspection, normocephalic and atraumatic Ears: hearing grossly normal bilaterally General nose exam: Normal external nose present, Normal nares present and no nasal discharge noted Face and sinus: normal facial exam and no erythema Mouth: No drooling and No restricted motion Throat: uvula midline Eyes: General: appearance normal, both eyes and all related structures Alignment and Position: position normal Conjunctivae: conjunctivae normal Sclera: sclerae normal Direct Ophthalmoscopy: No photophobia Neck: Neck: normal visual inspection and no JVD Thyroid: thyroid normal Carotids: no bruits Lymphatic: lymphedema not noted Chest: Chest palpation & inspection: normal inspection of the chest and no tenderness Resp: Effort & Inspection: normal respiratory effort and no nasal flaring Auscultation: clear to auscultation bilaterally, crackles (Faint at bilateral bases), no wheezes and diminished lung sounds C
[2020-08-09] MEDS: METOPROLOL SUCCINATE EXT REL 25 MG TABCR PO (13:00)
[2020-08-09] MEDS: modafiniL (*CRX) 100 MG TABLET PO (13:21)
[2020-08-09] MEDS: POTASSIUM CHLORIDE 20 MEQ TABLET 40 MEQ PO (13:21)
--- NOTE | 2020-08-09 14:37 | PM.IMPN ---
Progress Note: A&P Assessment and Plan (1) Respiratory failure with hypoxia: Code(s): J96.91 - Respiratory failure, unspecified with hypoxia Status: Acute Assessment and Plan: Pt is stable on RA in the day and CPAP at night SOB secondary to CHF exacerbation AND Morbidity hypoventilation syndrome (2) Normocytic anemia: Code(s): D64.9 - Anemia, unspecified Status: Acute Assessment and Plan: Hb is 7.7 continue to monior hb pt will benefit from colonscopy/ EGD Pt is on eliquis for anticoagulation for AF (3) Fall from chair: Code(s): W07.XXXA - Fall from chair, initial encounter Status: Acute (4) Narcolepsy: Code(s): G47.419 - Narcolepsy without cataplexy Status: Acute Assessment and Plan: History of narcolepsy (5) Morbid obesity: Code(s): E66.01 - Morbid (severe) obesity due to excess calories Status: Acute Assessment and Plan: Bedridden (6) Chronic kidney disease, stage 3: Code(s): N18.30 - Chronic kidney disease, stage 3 unspecified Status: Inactive Assessment and Plan: CReat is 1.1 (7) Atrial fibrillation: Code(s): I48.91 - Unspecified atrial fibrillation Status: Acute Assessment and Plan: HIstory of Af and ICD on Anticoagulation (8) Dyslipidemia: Code(s): E78.5 - Hyperlipidemia, unspecified Status: Acute Assessment and Plan: on statin (9) Type 2 diabetes mellitus: Code(s): E11.9 - Type 2 diabetes mellitus without complications Status: Inactive Assessment and Plan: accuchecks, SSI (10) Obstructive sleep apnea on CPAP: Code(s): G47.33 - Obstructive sleep apnea (adult) (pediatric); Z99.89 - Dependence on other enabling machines and devices Status: Acute Assessment and Plan: Uses Cpap (11) Hypothyroidism: Code(s): E03.9 - Hypothyroidism, unspecified Status: Inactive Assessment and Plan: On levothyroxine (12) Generalized weakness: Code(s): R53.1 - Weakness Status: Acute Assessment and Plan: PT/ OT (13) Hypertension: Code(s): I10 - Essential (primary) hypertension Status: Chronic Assessment and Plan: Chronic and stable BP 128/67 (14) CHF exacerbation: Code(s): I50.9 - Heart failure, unspecified Status: Acute Assessment and Plan: Will continue iv lasix tid for diuresis. Acute on chronic heart failure diastolic exacerbation, with potassium supplementation, BMP monitoring Pt has history of ICD Subjective Date/time seen: 08/09/20 14:37 Interval history: Donn is a 75-year-old female with atrial fibrillation status post cardiac ablation and Bi V pacemaker insertion, chronic anemia, type 2 diabetes mellitus, hypothyroidism, morbid obesity, obstructive sleep apnea, and narcolepsy presented to the emergency department earlier today via EMS for evaluation after a fall as well as increasing shortness of breath over the past 2 weeks. Pt lis doing better with iv diuresis, less swollen. Pt is found to have iron deficiency anaemia, pt benefits from EGD and colonoscopy. Review of Systems Review of Systems: All systems reviewed & are unremarkable except as noted in HPI and below Exam Narrative: Exam Narrative: General: Morbidly obese Neck: Supple. large neck Respiratory: Lung sounds are diminished Cardiovascular: Regular rate and rhythm with S1-S2. Gastrointestinal: Abdomen is morbidly obese with positive bowel sounds. Positive leg edema 2+ up to mid shins Skin: Warm and dry. Extremities: No cyanosis or clubbing. 3+ edema up to the flanks. Neurological: Alert and oriented x4. Cranial nerves 2-12 are grossly intact. No gross focal deficits to casual conversation. Psychiatric: Pleasant and cooperative with normal mood and affect. Judgment and insight intact. Objective Data Vital Signs Vital Signs: Vital Signs - 24 hr
[2020-08-09 20:53] LABS: Glucose Point of Care 124 (65-105)
[2020-08-09] MEDS: traZODone HCL 50 MG TABLET PO (21:45)
[2020-08-09 21:53] LABS: Glucose Point of Care 115 (65-105)
[2020-08-10] VITALS (12 sets, daily range): BP systolic 121–136; BP diastolic 61–84; PULSE 70–77; RESP 16–20; TEMP 35.8–36.6; O2SAT 90–100
[2020-08-10 05:47] LABS: Hematocrit 28.4 % (37.0-47.0); Hemoglobin 7.9 g/dL (12.0-15.0); Mean Corpuscular HGB Conc 27.8 g/dl (32-36); Mean Corpuscular Hemoglobin 23.7 pg (26-34); Mean Corpuscular Volume 85.3 fl (80-100); Mean Platelet Volume 9.6 fl (7.4-10.4); Platelet Count Result 246 k/mm3 (150-375); Red Blood Count 3.33 M/mm3 (4.2-5.4); Red Cell Distribution Width 18.6 % (11.5-14.5); White Blood Count 6.6 K/mm3 (4.5-10.0)
[2020-08-10] MEDS: LEVOTHYROXINE SODIUM 100 MCG TABLET 200 MCG PO (06:13)
[2020-08-10 06:18] LABS: Blood Urea Nitrogen 18 mg/dL (7-17); Calcium 9.1 mg/dL (8.4-10.2); Carbon Dioxide > 40 mmol/L (22-30); Chloride 90 mmol/L (98-107); Estimated CRCL calculation 70 ml/min; Estimated Glomerular Filt Rate 49; Glucose 144 mg/dL (65-105); Potassium 3.4 mmol/L (3.4-5.0); Sodium 136 mmol/L (137-145)
[2020-08-10 07:41] LABS: Glucose Point of Care 121 (65-105)
[2020-08-10] MEDS: modafiniL (*CRX) 200 MG TABLET PO (08:38)
[2020-08-10] MEDS: FUROSEMIDE INJ 40 MG/4 ML VIAL IV PUSH ×3 (08:38→17:04)
[2020-08-10] MEDS: ATORVASTATIN 10 MG TABLET PO (08:38)
[2020-08-10] MEDS: DULoxetine HCL 60 MG CAPSULE.DR PO (08:39)
[2020-08-10] MEDS: METOPROLOL SUCCINATE EXT REL 25 MG TABCR PO (08:39)
[2020-08-10] MEDS: MAGNESIUM OXIDE 400 MG TABLET 800 MG PO (08:39)
[2020-08-10] MEDS: APIXABAN 5 MG TABLET PO (08:39)
[2020-08-10] MEDS: POTASSIUM CHLORIDE 20 MEQ TABLET.ER PO (08:39)
--- NOTE | 2020-08-10 10:40 | WPDGIPROGNO ---
Progress Note: A&P Additional Plan GI Tam for No 10 Aug 2019 No gi complaints. Less SOB. VSS soft/NT + TR[place]ON (decreased) Hct 31->28. Retic 2.8. Cr 1.1 LABORATORY DATA: On October 17, 2019, hematocrit 39. On admission, hemoglobin 8, hematocrit 28, MCV 86. Creatinine 1.1. INR is 1.6. LFTs are normal. Ferritin is 12. Retic count 2.8. Troponin T is 0.22. ASSESSMENT AND PLAN: A. Iron deficiency anemia in patient on Eliquis: - Concern for gastrointestinal source of blood loss including ulceration, arteriovenous malformation malignancy, or polyp - Consider colonoscopy, possible EGD, possible capsule endoscopy when stable from the cardiopulmonary standpoint - Follow H and H and transfuse as needed - Care with aspirin, nonsteroidals, and anticoagulants - IV iron while in hospital, changing to oral iron as outpatient - No active gastrointestinal bleed B. Constipation: consider bowel regimen MiraLAX. Case discussed with Dr. Lan Kaufman who feels patient will be stable for endoscopy by Dr. Sarabia 08-12-2020. Thanks, [facility] [phone] Subjective Date/time seen: 08/10/20 10:40 Objective Data Vital Signs Vital Signs: Vital Signs - 24 hr 08/09/20 11:08 08/09/20 12:00 08/09/20 13:00 Temperature Pulse Rate 85 70 Respiratory Rate Blood Pressure Pulse Oximetry 96 08/09/20 14:00 08/09/20 16:00 08/09/20 20:03 Temperature 35.7 C L 36.0 C L Pulse Rate 75 70 80 Respiratory Rate 20 18 Blood Pressure 128/67 144/74 H Pulse Oximetry 100 90 08/09/20 21:00 08/09/20 22:25 08/10/20 00:00 Temperature Pulse Rate 73 69 70 Respiratory Rate Blood Pressure Pulse Oximetry 95 08/10/20 05:06 08/10/20 06:00 08/10/20 08:39 Temperature 36.6 C Pulse Rate 71 77 71 Respiratory Rate 20 Blood Pressure 128/76 Pulse Oximetry 91 Intake/Output Intake/Output: Intake & Output 08/07/20 08/08/20 08/09/20 08/10/20 23:59 23:59 23:59 23:59 Intake Total 240 1620 1230 1240 Output Total 1300 2200 3750 1200 Balance -0850 -580 -2520 40 Meds/Results Medications: Active Medications Generic Name Dose Route Start Last Admin Trade Name Janay PRN Reason Stop Dose Admin Acetaminophen 650 mg 08/07/20 14:26 08/08/20 05:16 Acetaminophen 325 Mg Tablet PO 650 mg Q4H PRN Administration Mild Pain (1-3) or Fever Hydrocodone Bitart/Acetaminophen 1 tab 08/07/20 14:26 Hydrocodone/Acetaminophen (*Crx) 5-325 Mg Tablet PO Q4H PRN Pain Rated 4-6 Apixaban 5 mg 08/08/20 09:00 08/10/20 08:39 Apixaban 5 Mg Tablet PO 5 mg Q12HR KHADAR Administration Atorvastatin Calcium 10 mg 08/08/20 09:00 08/10/20 08:38 Atorvastatin 10 Mg Tablet PO 10 mg DAILY KHADAR Administration Dextrose 12.5 gm 08/07/20 18:14 Dextrose 50% 25 Gm/50 Ml Syringe IV PUSH PRN PRN Hypoglycemia Protocol Duloxetine HCl 60 mg 08/08/20 09:00 08/10/20 08:39 Duloxetine Hcl 60 Mg Capsule.Dr PO 60 mg DAILY KHADAR Administration Ergocalciferol 50,000 unit 08/11/20 09:00 Ergocalciferol 50,000 Unit Capsule PO WEEKLY KHADAR Furosemide 40 mg 08/08/20 13:00 08/10/20 08:38 Furosemide Inj 40 Mg/4 Ml Vial IV PUSH 40 mg TID KHADAR Administration Glucagon 1 mg 08/07/20 18:14 Glucagon For Inj 1 Mg Vial IM PRN PRN Hypoglycemia Protocol Glucose 15 gm 08/07/20 18:14 Glucose Oral Gel 15 Gm Of Glucse In 37.5 Gm Tube PO PRN PRN Hypoglycemia Protocol Dextrose 1,000 mls @ 100 mls/hr 08/07/20 18:14 Dextrose 5% 1,000 Ml IVPB PRN PRN Hypoglycemia Protocol Insulin Aspart 2 - 5 units 08/07/20 17:00 08/10/20 08:52 Insulin Aspart (*Bkc) 100 Units/Ml SUB-Q Not Given TIDWM KHADAR Protocol Levothyroxine Sodium 200 mcg 08/08/20 06:30 08/10/20 06:13 Levothyroxine Sodium 100 Mcg Tablet PO 200 mcg DAILY@0630 KHADAR Administration Magnesium Oxide 800 mg 08/08/20 09:00 08/10/20 08:39 Magnesium Oxid
[2020-08-10 11:56] LABS: Glucose Point of Care 122 (65-105)
[2020-08-10] MEDS: modafiniL (*CRX) 100 MG TABLET PO (12:16)
--- NOTE | 2020-08-10 14:08 | PM.IMPN ---
Progress Note: A&P Assessment and Plan (1) Respiratory failure with hypoxia: Code(s): J96.91 - Respiratory failure, unspecified with hypoxia Status: Acute Assessment and Plan: Pt is stable on RA in the day and CPAP at night SOB secondary to CHF exacerbation AND Morbidity hypoventilation syndrome (2) Normocytic anemia: Code(s): D64.9 - Anemia, unspecified Status: Acute Assessment and Plan: Hb is 7.7 continue to monior hb pt will benefit from EGD Pt is on eliquis for anticoagulation for AF hold eliquis (3) Fall from chair: Code(s): W07.XXXA - Fall from chair, initial encounter Status: Acute (4) Narcolepsy: Code(s): G47.419 - Narcolepsy without cataplexy Status: Acute Assessment and Plan: History of narcolepsy (5) Morbid obesity: Code(s): E66.01 - Morbid (severe) obesity due to excess calories Status: Acute Assessment and Plan: Bedridden (6) Chronic kidney disease, stage 3: Code(s): N18.30 - Chronic kidney disease, stage 3 unspecified Status: Inactive Assessment and Plan: CReat is 1.1 (7) Atrial fibrillation: Code(s): I48.91 - Unspecified atrial fibrillation Status: Acute Assessment and Plan: HIstory of Af and ICD on Anticoagulation (8) Dyslipidemia: Code(s): E78.5 - Hyperlipidemia, unspecified Status: Acute Assessment and Plan: on statin (9) Type 2 diabetes mellitus: Code(s): E11.9 - Type 2 diabetes mellitus without complications Status: Inactive Assessment and Plan: accuchecks, SSI (10) Obstructive sleep apnea on CPAP: Code(s): G47.33 - Obstructive sleep apnea (adult) (pediatric); Z99.89 - Dependence on other enabling machines and devices Status: Acute Assessment and Plan: Uses Cpap (11) Hypothyroidism: Code(s): E03.9 - Hypothyroidism, unspecified Status: Inactive Assessment and Plan: On levothyroxine (12) Generalized weakness: Code(s): R53.1 - Weakness Status: Acute Assessment and Plan: PT/ OT (13) Hypertension: Code(s): I10 - Essential (primary) hypertension Status: Chronic Assessment and Plan: Chronic and stable BP 128/67 (14) CHF exacerbation: Code(s): I50.9 - Heart failure, unspecified Status: Acute Assessment and Plan: Will continue iv lasix tid for diuresis. Acute on chronic heart failure diastolic exacerbation, with potassium supplementation, BMP monitoring Pt has history of ICD Subjective Date/time seen: 08/10/20 14:08 Interval history: Donn is a 75-year-old female with atrial fibrillation status post cardiac ablation and Bi V pacemaker insertion, chronic anemia, type 2 diabetes mellitus, hypothyroidism, morbid obesity, obstructive sleep apnea, and narcolepsy presented to the emergency department earlier today via EMS for evaluation after a fall as well as increasing shortness of breath over the past 2 weeks. Pt lis doing better with iv diuresis, less swollen. Pt is found to have iron deficiency anaemia, Pt will have endoscopy tomorrow. Review of Systems Review of Systems: All systems reviewed & are unremarkable except as noted in HPI and below Exam Narrative: Exam Narrative: General: Morbidly obese Neck: Supple. large neck Respiratory: Lung sounds are diminished Cardiovascular: Regular rate and rhythm with S1-S2. Gastrointestinal: Abdomen is morbidly obese with positive bowel sounds. Positive leg edema 2+ up to mid shins Skin: Warm and dry. Extremities: No cyanosis or clubbing. 3+ edema up to the flanks. Neurological: Alert and oriented x4. Cranial nerves 2-12 are grossly intact. No gross focal deficits to casual conversation. Psychiatric: Pleasant and cooperative with normal mood and affect. Judgment and insight intact. Objective Data Vital Signs Vital Signs: Vital Signs - 24 hr
--- NOTE | 2020-08-10 15:01 | PCPTNOTE ---
Patient declined therapy as she just got back into bed. Education on how therapy will get her stronger. Patient states she needs to sleep as she did not sleep last night.
[2020-08-10] MEDS: POTASSIUM CHLORIDE 20 MEQ TABLET 40 MEQ PO (17:04)
[2020-08-10 17:37] LABS: Glucose Point of Care 113 (65-105)
[2020-08-10] MEDS: traZODone HCL 50 MG TABLET PO (22:06)
[2020-08-10 22:08] LABS: Glucose Point of Care 154 (65-105)
[2020-08-11] VITALS (10 sets, daily range): BP systolic 105–143; BP diastolic 51–90; PULSE 69–93; RESP 16–17; TEMP 36.2–36.7; O2SAT 92–100
[2020-08-11 05:54] LABS: Hematocrit 27.3 % (37.0-47.0); Hemoglobin 7.6 g/dL (12.0-15.0); Mean Corpuscular HGB Conc 27.8 g/dl (32-36); Mean Corpuscular Hemoglobin 23.9 pg (26-34); Mean Corpuscular Volume 85.8 fl (80-100); Mean Platelet Volume 9.9 fl (7.4-10.4); Platelet Count Result 253 k/mm3 (150-375); Red Blood Count 3.18 M/mm3 (4.2-5.4); Red Cell Distribution Width 18.7 % (11.5-14.5); White Blood Count 5.4 K/mm3 (4.5-10.0)
[2020-08-11] MEDS: LEVOTHYROXINE SODIUM 100 MCG TABLET 200 MCG PO (06:41)
[2020-08-11 06:52] LABS: Blood Urea Nitrogen 18 mg/dL (7-17); Carbon Dioxide > 40 mmol/L (22-30); Chloride 91 mmol/L (98-107); Estimated CRCL calculation 69 ml/min; Estimated Glomerular Filt Rate 49; Glucose 126 mg/dL (65-105); Potassium 3.5 mmol/L (3.4-5.0); Sodium 138 mmol/L (137-145)
[2020-08-11 08:12] LABS: Glucose Point of Care 130 (65-105)
--- NOTE | 2020-08-11 09:23 | WPDGIPROGNO ---
Progress Note: A&P Additional Plan GI Tam for No 11 Aug 2019 No gi complaints. Less SOB. VSS soft/NT + [place] (decreased) Hct 31->28->27. Retic 2.8. Cr 1.1 LABORATORY DATA: On October 17, 2019, hematocrit 39. On admission, hemoglobin 8, hematocrit 28, MCV 86. Creatinine 1.1. INR is 1.6. LFTs are normal. Ferritin is 12. Retic count 2.8. Troponin T is 0.22. ASSESSMENT AND PLAN: A. Iron deficiency anemia in patient on Eliquis: - Concern for gastrointestinal source of blood loss including ulceration, arteriovenous malformation malignancy, or polyp - Patient for colonoscopy, possible EGD, possible capsule endoscopy per Dr. Sarabia 08-12-2020 - Follow H and H and transfuse as needed - Care with aspirin, nonsteroidals, and anticoagulants - IV iron while in hospital, changing to oral iron as outpatient - No active gastrointestinal bleed B. Constipation: consider bowel regimen MiraLAX. The procedures of colonoscopy, EGD and Capsule endoscopy, their indications, alternatives of barium studies and risks including perforation, bleeding, infection, reaction to medication as well as the possible need for blood or surgery were discussed with the patient prior to the procedure. The patient voices understanding, agrees to proceed and provides informed consent.Case discussed with Dr. Lan Kaufman who feels patient will be stable for endoscopy by Dr. Sarabia 08-12-2020. Thanks, [facility] [phone] Subjective Date/time seen: 08/11/20 09:23 Objective Data Vital Signs Vital Signs: Vital Signs - 24 hr 08/10/20 12:00 08/10/20 14:00 08/10/20 16:00 Temperature 35.8 C L Pulse Rate 77 73 73 Respiratory Rate 18 Blood Pressure 121/61 Pulse Oximetry 99 08/10/20 19:47 08/10/20 19:56 08/11/20 00:00 Temperature 36.2 C L Pulse Rate 70 72 70 Respiratory Rate 16 Blood Pressure 136/84 Pulse Oximetry 100 99 08/11/20 04:00 08/11/20 04:22 Temperature 36.2 C L Pulse Rate 70 69 Respiratory Rate 17 Blood Pressure 105/51 L Pulse Oximetry 92 Intake/Output Intake/Output: Intake & Output 08/08/20 08/09/20 08/10/2021 23:59 23:59 23:59 23:59 Intake Total 1620 1230 2070 Output Total 2200 3750 3300 500 Balance -580 -2520 -1230 -500 Meds/Results Medications: Active Medications Generic Name Dose Route Start Last Admin Trade Name Freq PRN Reason Stop Dose Admin Acetaminophen 650 mg 08/07/20 14:26 08/08/20 05:16 Acetaminophen 325 Mg Tablet PO 650 mg Q4H PRN Administration Mild Pain (1-3) or Fever Hydrocodone Bitart/Acetaminophen 1 tab 08/07/20 14:26 Hydrocodone/Acetaminophen (*Crx) 5-325 Mg Tablet PO Q4H PRN Pain Rated 4-6 Atorvastatin Calcium 10 mg 08/08/20 09:00 08/10/20 08:38 Atorvastatin 10 Mg Tablet PO 10 mg DAILY KHADAR Administration Bisacodyl 10 mg 08/11/20 12:00 Bisacodyl 5 Mg Tablet Ec PO 08/11/20 21:01 1200,1500,2100 KHADAR Dextrose 12.5 gm 08/07/20 18:14 Dextrose 50% 25 Gm/50 Ml Syringe IV PUSH PRN PRN Hypoglycemia Protocol Duloxetine HCl 60 mg 08/08/20 09:00 08/10/20 08:39 Duloxetine Hcl 60 Mg Capsule.Dr PO 60 mg DAILY KHADAR Administration Ergocalciferol 50,000 unit 08/11/20 09:00 Ergocalciferol 50,000 Unit Capsule PO WEEKLY KHADAR Furosemide 40 mg 08/08/20 13:00 08/10/20 17:04 Furosemide Inj 40 Mg/4 Ml Vial IV PUSH 40 mg TID KHADAR Administration Glucagon 1 mg 08/07/20 18:14 Glucagon For Inj 1 Mg Vial IM PRN PRN Hypoglycemia Protocol Glucose 15 gm 08/07/20 18:14 Glucose Oral Gel 15 Gm Of Glucse In 37.5 Gm Tube PO PRN PRN Hypoglycemia Protocol Dextrose 1,000 mls @ 100 mls/hr 08/07/20 18:14 Dextrose 5% 1,000 Ml IVPB PRN PRN Hypoglycemia Protocol Insulin Aspart 2 - 5 units 08/07/20 17:00 08/10/20 17:04 Insulin Aspart (*Bkc) 100 Units/Ml SUB-Q Not Given TIDWM KHADAR Protocol Levothyroxine Sodium 200 mcg
[2020-08-11] MEDS: DULoxetine HCL 60 MG CAPSULE.DR PO (09:42)
[2020-08-11] MEDS: modafiniL (*CRX) 200 MG TABLET PO (09:42)
[2020-08-11] MEDS: ERGOCALCIFEROL 50,000 UNIT CAPSULE 50000 UNITS PO (09:42)
[2020-08-11] MEDS: FUROSEMIDE INJ 40 MG/4 ML VIAL IV PUSH ×3 (09:42→16:50)
[2020-08-11] MEDS: METOPROLOL SUCCINATE EXT REL 25 MG TABCR PO (09:42)
[2020-08-11] MEDS: MAGNESIUM OXIDE 400 MG TABLET 800 MG PO (09:42)
[2020-08-11] MEDS: POTASSIUM CHLORIDE 20 MEQ TABLET.ER 40 MEQ PO ×2 (09:43→16:51)
[2020-08-11] MEDS: ATORVASTATIN 10 MG TABLET PO (09:43)
[2020-08-11 12:08] LABS: Glucose Point of Care 145 (65-105)
[2020-08-11] MEDS: BISACODYL 5 MG TABLET EC 10 MG PO ×3 (12:13→21:28)
[2020-08-11] MEDS: SIMETHICONE 80 MG TAB.CHEW 160 MG PO ×3 (12:13→21:28)
[2020-08-11] MEDS: modafiniL (*CRX) 100 MG TABLET PO (12:14)
[2020-08-11] MEDS: MAGNESIUM CITRATE 300 ML BTL PO (12:14)
[2020-08-11] MEDS: polyethylene glycoL 3350 238 GM BOTTLE PO (13:05)
--- NOTE | 2020-08-11 14:33 | PM.PNCARD ---
Progress Note: A&P Assessment and Plan (1) CHF exacerbation: Code(s): I50.9 - Heart failure, unspecified Status: Acute Assessment and Plan: Acute on chronic heart failure with preserved ejection fraction. Responding well to IV Lasix increased to 40 mg t.i.d.. Reduce to 40 mg IV b.i.d. tomorrow. Plan to transition to 80mg daily po. Increase potassium chloride to 40 mEq p.o. b.i.d. which is essentially which she has been receiving with additional supplement. Will give additional potassium chloride 40 mEq today. Check BMP in a.m.. Accurate input and output, daily weight. (2) Normocytic anemia: Code(s): D64.9 - Anemia, unspecified Status: Acute Assessment and Plan: pt on eliquis, H&H stable. Appreciate GI recommendations. Plan for endoscopy on Wednesday. Anticoagulation on hold. Resume per GI recommendations as appropriate. (3) Presence of biventricular cardiac pacemaker: Code(s): Z95.0 - Presence of cardiac pacemaker Status: Acute Assessment and Plan: Predominantly V paced on telemetry. (4) Atrial fibrillation: Code(s): I48.91 - Unspecified atrial fibrillation Status: Acute Assessment and Plan: As above, status post AV malathi ablation. Remains on systemic anticoagulation. Subjective Date/time seen: Date of service: 08/11/20 14:33 Follow-up for acute on chronic heart failure with preserved ejection fraction, anemia, history of atrial fibrillation Feels okay. Lying flat without dyspnea. On minimal O2. Shortness of breath much improved, edema also improving. Began prep for colonoscopy tomorrow morning. Patient is now over 6 L negative this hospitalization. Review of Systems Constitutional: Constitutional: Denies chills, Denies fever(s) and Denies poor appetite Eyes: Eyes: Denies eye discharge, Denies loss of vision, Denies eye pain and Denies photophobia ENT: Denies dizziness, Denies epistaxis, Denies nasal congestion and Denies sore throat Cardiovascular: Cardiovascular: Denies chest pain, Denies syncope, Denies pedal edema, Denies palpitations, Reports dyspnea, Reports dyspnea on exertion and Reports orthopnea Respiratory: Respiratory: Denies cough, Reports dyspnea, Reports dyspnea on exertion and Denies wheezing Gastrointestinal: Gastrointestinal: Denies abdominal pain, Denies diarrhea, Denies nausea and Denies vomiting Genitourinary: Genitourinary: Denies hematuria, Denies genital lesions and Denies dysuria Musculoskeletal: Musculoskeletal: Denies arthralgias, Denies joint swelling and Denies numbness Integumentary/Breasts: Skin/Breast: Denies pruritus and Denies rash Neurologic: Denies dizziness, Denies syncope, Denies loss of vision and Denies numbness Psychiatric: Psychiatric: Denies anxiety and Denies depression Endocrine: Endocrine: Denies cold intolerance, Denies heat intolerance and Denies palpitations Hematologic/Lymphatic: Hematologic/Lymphatic: Denies easy bleeding and Denies easy bruising Allergic/Immunologic: Allergic/Immunologic: Denies urticaria and Denies wheezing Exam Const: General: cooperative, comfortable, no acute distress, alert and awake Nutritional Appearance: obese Orientation/consciousness: patient oriented x3 HENMT: Head: normal to inspection, normocephalic and atraumatic Ears: hearing grossly normal bilaterally General nose exam: Normal external nose present, Normal nares present and no nasal discharge noted Face and sinus: normal facial exam and no erythema Mouth: No drooling and No restricted motion Throat: uvula midline Eyes: General: appearance normal, both eyes and all related structures Alignment and Position: position normal Conjunctivae: conjunctivae normal Sclera: sclerae normal Direct Ophthalmoscopy: No photophobia Neck: Neck: normal visual inspection and no JVD Thyroid: thyroid normal Carotids: no bruits Lymphatic: lymphedema not noted Chest: Chest palpation & inspection: normal
[2020-08-11 16:39] LABS: Glucose Point of Care 153 (65-105)
--- NOTE | 2020-08-11 19:01 | PM.IMPN ---
Progress Note: A&P Assessment and Plan (1) CHF exacerbation: Qualifiers: Heart failure type: systolic Qualified Code(s): I50.23 - Acute on chronic systolic (congestive) heart failure Code(s): I50.9 - Heart failure, unspecified Status: Acute Assessment and Plan: Continue diuresis with IV furosemide AICD in place (2) Respiratory failure with hypoxia: Qualifiers: Chronicity: acute Qualified Code(s): J96.01 - Acute respiratory failure with hypoxia Code(s): J96.91 - Respiratory failure, unspecified with hypoxia Status: Acute Assessment and Plan: Pt is stable on RA in the day and CPAP at night SOB secondary to CHF exacerbation AND Morbidity hypoventilation syndrome (3) Normocytic anemia: Code(s): D64.9 - Anemia, unspecified Status: Acute Assessment and Plan: 08/11 hgb 7.6 continue to monior h/h Eliquis on hold EGD planned for 08/12 (4) Narcolepsy: Qualifiers: Narcolepsy type: due to underlying condition without cataplexy Qualified Code(s): G47.429 - Narcolepsy in conditions classified elsewhere without cataplexy Code(s): G47.419 - Narcolepsy without cataplexy Status: Acute Assessment and Plan: History of narcolepsy (5) Morbid obesity: Code(s): E66.01 - Morbid (severe) obesity due to excess calories Status: Acute Assessment and Plan: Bedridden (6) Chronic kidney disease, stage 3: Qualifiers: Chronic kidney disease stage 3 subtype: unspecified whether 3a or 3b Qualified Code(s): N18.30 - Chronic kidney disease, stage 3 unspecified Code(s): N18.30 - Chronic kidney disease, stage 3 unspecified Status: Inactive Assessment and Plan: Creatinine 1.1 (7) Atrial fibrillation: Qualifiers: Atrial fibrillation type: unspecified chronic Qualified Code(s): I48.20 - Chronic atrial fibrillation, unspecified Code(s): I48.91 - Unspecified atrial fibrillation Status: Acute Assessment and Plan: Eliquis held (8) Dyslipidemia: Code(s): E78.5 - Hyperlipidemia, unspecified Status: Acute Assessment and Plan: on statin (9) Type 2 diabetes mellitus: Qualifiers: Diabetes mellitus keno terminal operator insulin use: unspecified keno terminal operator insulin use status Diabetes mellitus complication status: without complication Qualified Code(s): E11.9 - Type 2 diabetes mellitus without complications Code(s): E11.9 - Type 2 diabetes mellitus without complications Status: Inactive Assessment and Plan: accGINGER anderson (10) Obstructive sleep apnea on CPAP: Code(s): G47.33 - Obstructive sleep apnea (adult) (pediatric); Z99.89 - Dependence on other enabling machines and devices Status: Acute Assessment and Plan: Uses Cpap (11) Hypothyroidism: Qualifiers: Hypothyroidism type: acquired Qualified Code(s): E03.9 - Hypothyroidism, unspecified Code(s): E03.9 - Hypothyroidism, unspecified Status: Inactive Assessment and Plan: On levothyroxine (12) Generalized weakness: Code(s): R53.1 - Weakness Status: Acute Assessment and Plan: PT/ OT (13) Hypertension: Qualifiers: Hypertension type: unspecified Qualified Code(s): I10 - Essential (primary) hypertension Code(s): I10 - Essential (primary) hypertension Status: Chronic Assessment and Plan: Chronic and stable (14) Fall from chair: Qualifiers: Encounter type: sequela Qualified Code(s): W07.XXXS - Fall from chair, sequela Code(s): W07.XXXA - Fall from chair, initial encounter Status: Acute Subjective Date/time seen: 08/11/20 19:01 Interval history: Donn is a 75-year-old female with atrial fibrillation status post cardiac ablation and biventricular pacemaker insertion, chronic anemia, type 2 diabetes mellitus, hypothyroidism,
[2020-08-11] MEDS: SENNA/DOCUSATE SODIUM TABLET 1 TAB PO (21:28)
[2020-08-11] MEDS: traZODone HCL 50 MG TABLET PO (21:29)
[2020-08-11 21:49] LABS: Glucose Point of Care 133 (65-105)
[2020-08-12] VITALS (20 sets, daily range): BP systolic 95–141; BP diastolic 37–81; PULSE 69–87; RESP 18–21; TEMP 35.6–36.9; O2SAT 92–100
[2020-08-12 06:20] LABS: Hematocrit 28.2 % (37.0-47.0); Hemoglobin 7.9 g/dL (12.0-15.0); Mean Corpuscular Hemoglobin 23.6 pg (26-34); Mean Corpuscular Volume 84.2 fl (80-100); Mean Platelet Volume 9.8 fl (7.4-10.4); Platelet Count Result 258 k/mm3 (150-375); Red Blood Count 3.35 M/mm3 (4.2-5.4); Red Cell Distribution Width 18.8 % (11.5-14.5); White Blood Count 5.6 K/mm3 (4.5-10.0)
[2020-08-12 06:37] LABS: Blood Urea Nitrogen 18 mg/dL (7-17); Carbon Dioxide > 40 mmol/L (22-30); Chloride 92 mmol/L (98-107); Estimated CRCL calculation 74 ml/min; Estimated Glomerular Filt Rate 54; Glucose 129 mg/dL (65-105); Potassium 3.6 mmol/L (3.4-5.0); Sodium 138 mmol/L (137-145)
[2020-08-12 07:03] LABS: Glucose Point of Care 132 (65-105)
--- NOTE | 2020-08-12 08:13 | WPDANESEPPF ---
Anes - Initial Pre Proc Eval Procedure: Operation Date: 08/12/20 08:30 Proposed Procedures p Esophagogastroduodenoscopy & Colonoscopy - Hua Sarabia MD Date/Time: 08/12/20 08:13 Surgeon: Samantha Kaufman MD Pre Op Diagnosis: Hypoixia/CHF/Anemia Patient Data Age: 75 Gender: F Height: 1.65 m Weight: 180 kg Last Vital Signs Temp 36.9 C 08/12/20 05:06 Pulse 71 08/12/20 05:06 Resp 18 08/12/20 05:06 BP 108/46 L 08/12/20 05:06 Pulse Ox 96 08/12/20 05:06 Allergies Allergy/AdvReac Type Severity Reaction Status Date / Time bacitracin Allergy Intermediate Swelling Verified 08/07/20 17:49 neomycin Allergy Intermediate Swelling Verified 08/07/20 17:49 Penicillins Allergy Unknown Unknown Verified 08/07/20 17:49 polymyxin B Allergy Unknown Unknown Verified 08/07/20 17:49 Home Medications Medication Instructions Recorded Confirmed Type modafinil 200 mg PO DAILY 06/08/19 08/07/20 History sodium oxybate 4.5 g PO DIRECTED 06/09/19 08/07/20 History trazodone 50 mg tablet 50 mg PO .QHS tablet 06/15/19 08/07/20 History ergocalciferol (vitamin D2) 1,250 50,000 unit PO WEEKLY #12 cap 01/19/20 08/07/20 Rx mcg (50,000 unit) capsule metoprolol succinate 25 mg PO DAILY 02/14/20 08/09/20 History magnesium oxide 800 mg PO DAILY #60 cap 02/15/20 08/07/20 Rx duloxetine 60 mg capsule,delayed 60 mg PO DAILY #90 cap 03/07/20 08/07/20 Rx release metformin 500 mg tablet,extended 1,000 mg PO DAILY #180 tablet 04/18/20 08/07/20 Rx release 24 hr atorvastatin 10 mg tablet 10 mg PO DAILY #90 tablet 04/23/20 08/07/20 Rx levothyroxine 200 mcg PO DAILY 08/07/20 08/07/20 History modafinil 100 mg PO 1200 08/07/20 08/07/20 History apixaban [Eliquis] 5 mg PO DAILY #30 tablet 08/13/20 Rx famotidine 20 mg PO Q12HR #60 tablet 08/13/20 Rx ferrous sulfate 324 mg PO BIDWM #60 tablet 08/13/20 Rx furosemide 40 mg PO BID #60 tablet 08/13/20 Rx potassium chloride [K-Tab] 20 meq PO BID #60 tablet 08/13/20 Rx Laboratory Tests 08/11/20 08/11/20 08/11/20 12:04 16:30 21:34 WBC RBC Hgb Hct MCV MCH MCHC RDW Plt Count MPV Sodium Potassium Chloride Carbon Dioxide Anion Gap BUN Creatinine Estim Creat Clear Calc Estimated GFR Glucose POC Capillary Glucose 145 mg/dl H mg/dl 153 mg/dl H mg/dl 133 mg/dl H mg/dl (65-105) (65-105) (65-105) Calcium 08/12/20 08/12/20 08/12/20 06:04 06:04 06:58 WBC 5.6 K/mm3 K/mm3 (4.5-10.0) RBC 3.35 M/mm3 L M/mm3 (4.2-5.4) Hgb 7.9 g/dL L g/dL (12.0-15.0) Hct 28.2 % L % (37.0-47.0) MCV 84.2 fl fl (80-100) MCH 23.6 pg L pg (26-34) MCHC 28.0 g/dl L g/dl (32-36) RDW 18.8 % H % (11.5-14.5) Plt Count 258 k/mm3 k/mm3 (150-375) MPV 9.8 fl fl (7.4-10.4) Sodium 138 mmol/L mmol/L (137-145) Potassium 3.6 mmol/L mmol/L (3.4-5.0) Chloride 92 mmol/L L mmol/L (98-107) Carbon Dioxide > 40 mmol/L H mmol/L (22-30) Anion Gap mmol/L mmol/L (8-16) BUN 18 mg/dL H mg/dL (7-17) Creatinine 1.00 mg/dL mg/dL (0.7-1.0) Estim Creat Clear Calc 74 ml/min ml/min Estimated GFR 54 L (59 - ) Glucose 129 mg/dL H mg/dL (65-105) POC Capillary Glucose 132 mg/dl H mg/dl (65-105) Calcium 9.0 mg/dL mg/dL (8.4-10.2) Patient hx anesthesia problems: none Family hx anesthesia problems: none PMFSH Past Medical History Medical History Atrial fibrillation Failed cardioversion x2. Status post AV malathi ablation and biventricular pacemaker insertion on
--- NOTE | 2020-08-12 08:18 | PC.NURSE ---
Patient to pre-op via hospital stretcher.
[2020-08-12] MEDS: LACTATED RINGERS 1,000 ML 150 ML IV CONT (08:28)
[2020-08-12 09:54] LABS: Glucose Point of Care 138 (65-105)
--- NOTE | 2020-08-12 10:04 | PC.NURSE ---
Patient returned from post-op via hospital stretcher.
[2020-08-12] MEDS: ATORVASTATIN 10 MG TABLET PO (10:11)
[2020-08-12] MEDS: DULoxetine HCL 60 MG CAPSULE.DR PO (10:11)
[2020-08-12] MEDS: METOPROLOL SUCCINATE EXT REL 25 MG TABCR PO (10:12)
[2020-08-12] MEDS: FUROSEMIDE INJ 40 MG/4 ML VIAL IV PUSH ×2 (10:12→16:37)
[2020-08-12] MEDS: MAGNESIUM OXIDE 400 MG TABLET 800 MG PO (10:12)
[2020-08-12] MEDS: POTASSIUM CHLORIDE 20 MEQ TABLET.ER 40 MEQ PO ×2 (10:13→16:37)
[2020-08-12] MEDS: FAMOTIDINE 20 MG TABLET PO ×2 (10:13→20:58)
[2020-08-12] MEDS: modafiniL (*CRX) 200 MG TABLET PO (10:14)
--- NOTE | 2020-08-12 10:56 | PCOTNOTE ---
OT treatment attempted. Patient in procedure. Will attempt at later time.
[2020-08-12 11:15] LABS: Glucose Point of Care 153 (65-105)
--- NOTE | 2020-08-12 11:45 | PCPTNOTE ---
Patient refused treatment this session 08-12-2020 due to patient stating I just got back from my test I would like to eat.
[2020-08-12] MEDS: modafiniL (*CRX) 100 MG TABLET PO (11:50)
[2020-08-12] MEDS: FERROUS SULFATE 324 MG TABLET PO ×2 (11:50→16:37)
--- NOTE | 2020-08-12 12:10 | PM.PNCARD ---
Progress Note: A&P Assessment and Plan (1) CHF exacerbation: Qualifiers: Heart failure type: systolic Qualified Code(s): I50.23 - Acute on chronic systolic (congestive) heart failure Code(s): I50.9 - Heart failure, unspecified Status: Acute Assessment and Plan: Acute on chronic heart failure with pres.erved ejection fraction. Furosemide 40 mg IV q.12 hours . Will start furosemide 80 mg p.o. tomorrow. Wean oxygen. Accurate input and output, daily weight. (2) Normocytic anemia: Code(s): D64.9 - Anemia, unspecified Status: Acute Assessment and Plan: No obvious source of bleeding per patient. Awaiting final report. (3) Presence of biventricular cardiac pacemaker: Code(s): Z95.0 - Presence of cardiac pacemaker Status: Acute Assessment and Plan: Predominantly V paced on telemetry. (4) Atrial fibrillation: Qualifiers: Atrial fibrillation type: unspecified chronic Qualified Code(s): I48.20 - Chronic atrial fibrillation, unspecified Code(s): I48.91 - Unspecified atrial fibrillation Status: Acute Assessment and Plan: As above, status post AV malathi ablation. Anticoagulation on hold because of severe anemia. Subjective Date/time seen: 08/12/20 12:10 Interval history: Donn is a 75-year-old female with atrial fibrillation status post cardiac ablation and biventricular pacemaker insertion, chronic anemia, type 2 diabetes mellitus, hypothyroidism, morbid obesity, obstructive sleep apnea, and narcolepsy presented to the emergency department 08/07 via EMS for evaluation after a fall as well as increasing shortness of breath over the 2 weeks piror to admission. Date of service 08/12/2020: Feels okay. Denies any chest pain or shortness of breath. Breathing is better. Swelling of better. Review of Systems Constitutional: Constitutional: Denies chills, Denies fever(s) and Denies poor appetite Eyes: Eyes: Denies eye discharge, Denies loss of vision, Denies eye pain and Denies photophobia ENT: Denies dizziness, Denies epistaxis, Denies nasal congestion and Denies sore throat Cardiovascular: Cardiovascular: Denies chest pain, Denies syncope, Denies pedal edema, Denies palpitations, Reports dyspnea, Reports dyspnea on exertion and Reports orthopnea Respiratory: Respiratory: Denies cough, Reports dyspnea, Reports dyspnea on exertion and Denies wheezing Gastrointestinal: Gastrointestinal: Denies abdominal pain, Denies diarrhea, Denies nausea and Denies vomiting Genitourinary: Genitourinary: Denies hematuria, Denies genital lesions and Denies dysuria Musculoskeletal: Musculoskeletal: Denies arthralgias, Denies joint swelling and Denies numbness Integumentary/Breasts: Skin/Breast: Denies pruritus and Denies rash Neurologic: Denies dizziness, Denies syncope, Denies loss of vision and Denies numbness Psychiatric: Psychiatric: Denies anxiety and Denies depression Endocrine: Endocrine: Denies cold intolerance, Denies heat intolerance and Denies palpitations Hematologic/Lymphatic: Hematologic/Lymphatic: Denies easy bleeding and Denies easy bruising Allergic/Immunologic: Allergic/Immunologic: Denies urticaria and Denies wheezing Exam Const: General: cooperative, comfortable, no acute distress, alert and awake Nutritional Appearance: obese Orientation/consciousness: patient oriented x3 HENMT: Head: normal to inspection, normocephalic and atraumatic Ears: hearing grossly normal bilaterally General nose exam: Normal external nose present, Normal nares present and no nasal discharge noted Face and sinus: normal facial exam and no erythema Mouth: No drooling and No restricted motion Throat: uvula midline Eyes: General: appearance normal, both eyes and all related structures Alignment and Position: position normal Conjunctivae: conjunctivae normal Sclera: sclerae normal Direct Ophthalmoscopy: No photophobia Neck: Neck:
--- NOTE | 2020-08-12 13:44 | PM.IMPN ---
Progress Note: A&P Assessment and Plan (1) Respiratory failure with hypoxia: Qualifiers: Chronicity: acute Qualified Code(s): J96.01 - Acute respiratory failure with hypoxia Code(s): J96.91 - Respiratory failure, unspecified with hypoxia Status: Acute Assessment and Plan: Pt is stable on room air and CPAP at night SOB secondary to CHF exacerbation AND Morbidity hypoventilation syndrome I will order CXR elicia and consider discharge tomorrow (2) Normocytic anemia: Code(s): D64.9 - Anemia, unspecified Status: Acute Assessment and Plan: Hb is 7.9 Pt is on eliquis for anticoagulation for AF Restart eliquis as pt had her colonoscopy and egd today (3) Fall from chair: Qualifiers: Encounter type: sequela Qualified Code(s): W07.XXXS - Fall from chair, sequela Code(s): W07.XXXA - Fall from chair, initial encounter Status: Acute (4) Narcolepsy: Qualifiers: Narcolepsy type: due to underlying condition without cataplexy Qualified Code(s): G47.429 - Narcolepsy in conditions classified elsewhere without cataplexy Code(s): G47.419 - Narcolepsy without cataplexy Status: Acute Assessment and Plan: History of narcolepsy (5) Morbid obesity: Code(s): E66.01 - Morbid (severe) obesity due to excess calories Status: Acute Assessment and Plan: Bedridden (6) Chronic kidney disease, stage 3: Qualifiers: Chronic kidney disease stage 3 subtype: unspecified whether 3a or 3b Qualified Code(s): N18.30 - Chronic kidney disease, stage 3 unspecified Code(s): N18.30 - Chronic kidney disease, stage 3 unspecified Status: Inactive Assessment and Plan: Creat is 1.1 (7) Atrial fibrillation: Qualifiers: Atrial fibrillation type: unspecified chronic Qualified Code(s): I48.20 - Chronic atrial fibrillation, unspecified Code(s): I48.91 - Unspecified atrial fibrillation Status: Acute Assessment and Plan: HIstory of Af and ICD on Anticoagulation (8) Dyslipidemia: Code(s): E78.5 - Hyperlipidemia, unspecified Status: Acute Assessment and Plan: on statin (9) Type 2 diabetes mellitus: Qualifiers: Diabetes mellitus complication status: without complication Diabetes mellitus longterm insulin use: unspecified longterm insulin use status Qualified Code(s): E11.9 - Type 2 diabetes mellitus without complications Code(s): E11.9 - Type 2 diabetes mellitus without complications Status: Inactive Assessment and Plan: GINGER davis (10) Obstructive sleep apnea on CPAP: Code(s): G47.33 - Obstructive sleep apnea (adult) (pediatric); Z99.89 - Dependence on other enabling machines and devices Status: Acute Assessment and Plan: Uses Cpap (11) Hypothyroidism: Qualifiers: Hypothyroidism type: acquired Qualified Code(s): E03.9 - Hypothyroidism, unspecified Code(s): E03.9 - Hypothyroidism, unspecified Status: Inactive Assessment and Plan: On levothyroxine (12) Generalized weakness: Code(s): R53.1 - Weakness Status: Acute Assessment and Plan: PT/ OT (13) Hypertension: Qualifiers: Hypertension type: unspecified Qualified Code(s): I10 - Essential (primary) hypertension Code(s): I10 - Essential (primary) hypertension Status: Chronic Assessment and Plan: Chronic and stable BP 128/67 (14) CHF exacerbation: Qualifiers: Heart failure type: systolic Qualified Code(s): I50.23 - Acute on chronic systolic (congestive) heart failure Code(s): I50.9 - Heart failure, unspecified Status: Acute Assessment and Plan: Will continue iv lasix for diuresis. Acute on chronic heart failure diastolic exacerbation, with potassium supplementation, BMP monitoring, change to oral lasix tomorrow. Pt h
[2020-08-12 17:06] LABS: Glucose Point of Care 148 (65-105)
[2020-08-12] MEDS: SENNA/DOCUSATE SODIUM TABLET 1 TAB PO (20:58)
[2020-08-12] MEDS: APIXABAN 5 MG TABLET PO (20:58)
[2020-08-12] MEDS: traZODone HCL 50 MG TABLET PO (20:59)
[2020-08-12 21:28] LABS: Glucose Point of Care 164 (65-105)
[2020-08-13] VITALS (13 sets, daily range): BP systolic 116–152; BP diastolic 52–70; PULSE 70–101; RESP 16–18; TEMP 36–36.9; O2SAT 91–99
[2020-08-13] MEDS: LEVOTHYROXINE SODIUM 100 MCG TABLET 200 MCG PO (05:38)
[2020-08-13 05:57] LABS: Hematocrit 28.4 % (37.0-47.0); Hemoglobin 7.9 g/dL (12.0-15.0); Mean Corpuscular HGB Conc 27.8 g/dl (32-36); Mean Corpuscular Hemoglobin 24.1 pg (26-34); Mean Corpuscular Volume 86.6 fl (80-100); Platelet Count Result 255 k/mm3 (150-375); Red Blood Count 3.28 M/mm3 (4.2-5.4); Red Cell Distribution Width 18.8 % (11.5-14.5); White Blood Count 5.5 K/mm3 (4.5-10.0)
[2020-08-13 06:55] LABS: Blood Urea Nitrogen 16 mg/dL (7-17); Carbon Dioxide > 40 mmol/L (22-30); Chloride 94 mmol/L (98-107); Estimated CRCL calculation 83 ml/min; Estimated Glomerular Filt Rate > 60; Glucose 141 mg/dL (65-105); Potassium 3.7 mmol/L (3.4-5.0); Sodium 137 mmol/L (137-145)
[2020-08-13] MEDS: modafiniL (*CRX) 200 MG TABLET PO (08:24)
[2020-08-13] MEDS: ATORVASTATIN 10 MG TABLET PO (08:24)
[2020-08-13] MEDS: MAGNESIUM OXIDE 400 MG TABLET 800 MG PO (08:24)
[2020-08-13] MEDS: DULoxetine HCL 60 MG CAPSULE.DR PO (08:24)
[2020-08-13] MEDS: FERROUS SULFATE 324 MG TABLET PO (08:24)
[2020-08-13] MEDS: FAMOTIDINE 20 MG TABLET PO (08:24)
[2020-08-13] MEDS: APIXABAN 5 MG TABLET PO (08:24)
[2020-08-13] MEDS: METOPROLOL SUCCINATE EXT REL 25 MG TABCR PO (08:24)
[2020-08-13] MEDS: FUROSEMIDE INJ 40 MG/4 ML VIAL IV PUSH (08:24)
[2020-08-13] MEDS: POTASSIUM CHLORIDE 20 MEQ TABLET.ER 40 MEQ PO (08:25)
--- NOTE | 2020-08-13 08:38 | WPDGIPROGNO ---
Progress Note: A&P Assessment and Plan (1) Anemia: Code(s): D64.9 - Anemia, unspecified Status: Acute Assessment and Plan: Normochromic anemia identified. Because of concern over ongoing blood loss outpatient small bowel capsule study will be performed. It is possible gastric erosion contributed to her anemia. She may have had bleeding while she was anticoagulated. Hopefully anticoagulation can be held for a brief interval to allow healing. This may be complicated by recent cardiology intervention with new pacemaker. (2) Presence of biventricular cardiac pacemaker: Code(s): Z95.0 - Presence of cardiac pacemaker Status: Acute (3) CHF exacerbation: Qualifiers: Heart failure type: systolic Qualified Code(s): I50.23 - Acute on chronic systolic (congestive) heart failure Code(s): I50.9 - Heart failure, unspecified Status: Acute Assessment and Plan: Congestive heart failure appears to be related to anemia. This improved at present. (4) Morbid obesity: Code(s): E66.01 - Morbid (severe) obesity due to excess calories Status: Acute (5) Gastric erosion: Code(s): K25.9 - Gastric ulcer, unspecified as acute or chronic, without hemorrhage or perforation Status: Acute Assessment and Plan: Gastric erosion identified at endoscopy. Not bleeding at time of endoscopy. Potentially could have bled while she was anticoagulated. Would recommend continuing Pepcid or Protonix for at least several months. Avoid nonsteroidal anti-inflammatory agents and be cautious with anticoagulation when it is restarted. (6) Colon polyp: Code(s): K63.5 - Polyp of colon Status: Acute Assessment and Plan: Benign appearing colon polyp was removed at time of endoscopy. She has a prior history of colon polyps most recently 5 years ago. Plan to confirm histology is benign. Follow-up colonoscopy in 5 years is anticipated. Subjective Date/time seen: 08/13/20 08:38 Patient comfortable this morning. Tolerating diet. Sitting upright in bed. No active bleeding identified. Review of Systems Review of Systems: All systems reviewed & are unremarkable except as noted in HPI and below Exam Narrative: Exam Narrative: On physical exam patient is morbidly obese. Lungs are clear. Heart without murmur. Abdomen is obese bowel sounds are present soft no organomegaly palpable. Objective Data Vital Signs Vital Signs: Vital Signs - 24 hr 08/12/20 09:25 08/12/20 09:35 08/12/20 09:45 Temperature Pulse Rate 69 70 72 Respiratory Rate 20 21 H 19 Blood Pressure 105/37 L 95/81 L 104/49 L Pulse Oximetry 97 98 92 08/12/20 10:00 08/12/20 10:12 08/12/20 10:20 Temperature 96.2 F L Pulse Rate 87 75 Respiratory Rate 18 Blood Pressure 122/51 L Pulse Oximetry 100 98 08/12/20 10:30 08/12/20 11:00 08/12/20 12:00 Temperature 96.4 F L 96.5 F L 96.9 F L Pulse Rate 76 72 81 Respiratory Rate 18 18 18 Blood Pressure 141/61 H 141/61 H 117/54 L Pulse Oximetry 100 98 98 08/12/20 16:00 08/12/20 16:23 08/12/20 20:00 Temperature 96.1 F L Pulse Rate 71 80 70 Respiratory Rate 18 Blood Pressure 117/50 L Pulse Oximetry 100 08/12/20 20:15 08/12/20 21:06 08/12/20 21:30 Temperature 97.8 F Pulse Rate 72 70 Respiratory Rate 18 Blood Pressure 134/55 L Pulse Oximetry 100 100 98 08/13/20 00:00 08/13/20 01:38 08/13/20 04:00 Temperature Pulse Rate 70 71 70 Respiratory Rate Blood Pressure Pulse Oximetry 97 08/13/20 05:17 08/13/20 08:00 08/13/20 08:24 Temperature 98.4 F 96.9 F L Pulse Rate 74 73 73 Respiratory Rate 18 16 Blood Pressure 116/52 L 152/70 H Pulse Oximetry 93 95 Intake/Output Intake/Output: Intake & Output 08/10/20 08/11/20 08/12/20 08/13/20 23:59 23:59 23:59 23:59 Intake Total 8820 1270 980 480 Output Total 3300 2250 175 900 Balance -1230 -980 -770 -420 Meds/Results Medications:
--- NOTE | 2020-08-13 10:12 | PM.PNCARD ---
Progress Note: A&P Assessment and Plan (1) CHF exacerbation: Qualifiers: Heart failure type: systolic Qualified Code(s): I50.23 - Acute on chronic systolic (congestive) heart failure Code(s): I50.9 - Heart failure, unspecified Status: Acute Assessment and Plan: Acute on chronic heart failure with pres.erved ejection fraction. Will DC telemetry. Will also switch her from IV furosemide of furosemide 40 mg p.o. b.i.d. (2) Normocytic anemia: Code(s): D64.9 - Anemia, unspecified Status: Acute Assessment and Plan: No obvious source of bleeding per patient. Awaiting final report. (3) Presence of biventricular cardiac pacemaker: Code(s): Z95.0 - Presence of cardiac pacemaker Status: Acute Assessment and Plan: Predominantly V paced on telemetry. (4) Atrial fibrillation: Qualifiers: Atrial fibrillation type: unspecified chronic Qualified Code(s): I48.20 - Chronic atrial fibrillation, unspecified Code(s): I48.91 - Unspecified atrial fibrillation Status: Acute Assessment and Plan: As above, status post AV malathi ablation. Anticoagulation on hold because of severe anemia. Subjective Date/time seen: 08/13/20 10:12 Interval history: Donn is a 75-year-old female with atrial fibrillation status post cardiac ablation and biventricular pacemaker insertion, chronic anemia, type 2 diabetes mellitus, hypothyroidism, morbid obesity, obstructive sleep apnea, and narcolepsy presented to the emergency department 08/07 via EMS for evaluation after a fall as well as increasing shortness of breath over the 2 weeks piror to admission. Date of service 08/13/2020: Feels okay. Denies any chest pain or shortness of breath. Feels okay Swelling of better. Review of Systems Constitutional: Constitutional: Denies chills, Denies fever(s) and Denies poor appetite Eyes: Eyes: Denies eye discharge, Denies loss of vision, Denies eye pain and Denies photophobia ENT: Denies dizziness, Denies epistaxis, Denies nasal congestion and Denies sore throat Cardiovascular: Cardiovascular: Denies chest pain, Denies syncope, Denies pedal edema, Denies palpitations, Reports dyspnea, Reports dyspnea on exertion and Reports orthopnea Respiratory: Respiratory: Denies cough, Reports dyspnea, Reports dyspnea on exertion and Denies wheezing Gastrointestinal: Gastrointestinal: Denies abdominal pain, Denies diarrhea, Denies nausea and Denies vomiting Genitourinary: Genitourinary: Denies hematuria, Denies genital lesions and Denies dysuria Musculoskeletal: Musculoskeletal: Denies arthralgias, Denies joint swelling and Denies numbness Integumentary/Breasts: Skin/Breast: Denies pruritus and Denies rash Neurologic: Denies dizziness, Denies syncope, Denies loss of vision and Denies numbness Psychiatric: Psychiatric: Denies anxiety and Denies depression Endocrine: Endocrine: Denies cold intolerance, Denies heat intolerance and Denies palpitations Hematologic/Lymphatic: Hematologic/Lymphatic: Denies easy bleeding and Denies easy bruising Allergic/Immunologic: Allergic/Immunologic: Denies urticaria and Denies wheezing Exam Const: General: cooperative, comfortable, no acute distress, alert and awake Nutritional Appearance: obese Orientation/consciousness: patient oriented x3 HENMT: Head: normal to inspection, normocephalic and atraumatic Ears: hearing grossly normal bilaterally General nose exam: Normal external nose present, Normal nares present and no nasal discharge noted Face and sinus: normal facial exam and no erythema Mouth: No drooling and No restricted motion Throat: uvula midline Eyes: General: appearance normal, both eyes and all related structures Alignment and Position: position normal Conjunctivae: conjunctivae normal Sclera: sclerae normal Direct Ophthalmoscopy: No photophobia Neck: Neck: normal visual inspection and no JVD Thyroid: thyroid
[2020-08-13 11:40] LABS: Glucose Point of Care 140 (65-105)
[2020-08-13] MEDS: modafiniL (*CRX) 100 MG TABLET PO (11:41)
--- NOTE | 2020-08-13 13:06 | PM.DS ---
DS: Admitting Diagnosis Admitting Diagnosis Admitting Diagnosis: SOB DS: Discharge Diagnosis Discharge Diagnosis (1) Respiratory failure with hypoxia: Qualifiers: Chronicity: acute Qualified Code(s): J96.01 - Acute respiratory failure with hypoxia Code(s): J96.91 - Respiratory failure, unspecified with hypoxia Status: Acute Assessment and Plan: Pt is stable on room air and CPAP at night SOB secondary to CHF exacerbation AND Morbidity hypoventilation syndrome Pt will have home oxygen assessment prior to discharge (2) Normocytic anemia: Code(s): D64.9 - Anemia, unspecified Status: Acute Assessment and Plan: Hb is 7.9 Pt is on eliquis for anticoagulation for AF Pt had EGD and colonscopy EGD shows- gastric erosion eliquis cut back to once a day dosing Colonoscopy shows - diverticulosis and sigmoid polyp Small bowel follow up scheduled Restart eliquis in 2 weeks time (3) Fall from chair: Qualifiers: Encounter type: sequela Qualified Code(s): W07.XXXS - Fall from chair, sequela Code(s): W07.XXXA - Fall from chair, initial encounter Status: Resolved Assessment and Plan: Pt felt sob at that time, pt receiving physical therapy in the hospital. Advised to sit in chair. (4) Narcolepsy: Qualifiers: Narcolepsy type: due to underlying condition without cataplexy Qualified Code(s): G47.429 - Narcolepsy in conditions classified elsewhere without cataplexy Code(s): G47.419 - Narcolepsy without cataplexy Status: Acute Assessment and Plan: History of narcolepsy (5) Morbid obesity: Code(s): E66.01 - Morbid (severe) obesity due to excess calories Status: Acute Assessment and Plan: Bedridden, adviced movement and weight loss. (6) Chronic kidney disease, stage 3: Qualifiers: Chronic kidney disease stage 3 subtype: unspecified whether 3a or 3b Qualified Code(s): N18.30 - Chronic kidney disease, stage 3 unspecified Code(s): N18.30 - Chronic kidney disease, stage 3 unspecified Status: Inactive Assessment and Plan: Creat is 0.9 (7) Atrial fibrillation: Qualifiers: Atrial fibrillation type: unspecified chronic Qualified Code(s): I48.20 - Chronic atrial fibrillation, unspecified Code(s): I48.91 - Unspecified atrial fibrillation Status: Acute Assessment and Plan: HIstory of Af and ICD on Anticoagulation hold for 2 weeks and then restart at half the dose (8) Dyslipidemia: Code(s): E78.5 - Hyperlipidemia, unspecified Status: Acute Assessment and Plan: on statin (9) Type 2 diabetes mellitus: Qualifiers: Diabetes mellitus complication status: without complication Diabetes mellitus meterman insulin use: unspecified detention insulin use status Qualified Code(s): E11.9 - Type 2 diabetes mellitus without complications Code(s): E11.9 - Type 2 diabetes mellitus without complications Status: Inactive Assessment and Plan: Continue metformin at home hbaic is (10) Obstructive sleep apnea on CPAP: Code(s): G47.33 - Obstructive sleep apnea (adult) (pediatric); Z99.89 - Dependence on other enabling machines and devices Status: Acute Assessment and Plan: Uses Cpap (11) Hypothyroidism: Qualifiers: Hypothyroidism type: acquired Qualified Code(s): E03.9 - Hypothyroidism, unspecified Code(s): E03.9 - Hypothyroidism, unspecified Status: Inactive Assessment and Plan: On levothyroxine (12) Generalized weakness: Code(s): R53.1 - Weakness Status: Acute Assessment and Plan: PT/ OT (13) Hypertension: Qualifiers: Hypertension type: unspecified Qualified Code(s): I10 - Essential (primary) hypertension Code(s): I10 - Essential (primary) hypertension Status: Chronic Assessment and Pl
--- NOTE | 2020-08-13 15:52 | HOMEO2EVAL ---
Home Oxygen Evaluation RC: Home Oxygen (O2) Evaluation Start: 08/13/20 13:00 Freq: ONCE Status: Active Protocol: RPE Activity Type Activity Date Activity User E-Sign Co-Sign Detail Recorded Client Recorded Date Recorded By Document 08/13/20 15:00 SHANTI [id number] 08/13/20 15:52 SHANTI Document 08/13/20 15:05 SHANTI [id number] 08/13/20 15:52 SHANTI Document 08/13/20 15:15 SHANTI [email or web address] 08/13/20 15:52 SHANTI 08/13/20 08/13/20 08/13/20 15:00 15:05 15:15 Home O2 Evaluation Test Phase Resting Exercise Resting Oxygen Delivery Room Air Room Air Room Air Pulse Oximetry (90-100 %) 93 91 93 Pulse Rate (60-100 beats/min) 86 101 H 92 Home Oxygen Evaluation Comments NO HOME O2 NEEDED. Treatment Charges O2 Evaluation
--- NOTE | 2020-08-13 15:52 | PCRCNOTE ---
HOME O2 EVAL COMPLETED. NO HOME O2 NEEDED. PT UP OUT OF BED AND TO COMMODE WITH ASSIST.
[2020-08-13 17:03] LABS: Glucose Point of Care 133 (65-105)
== END 2020-08-13 16:15 | disposition home or self-care (01) | DRG 291 ==
LOC: ANHED 12:28 → ANH3MED 15:27
PROVIDERS: Internal Medicine; Internal Medicine Gastroenterology; Physician Assistant; Admitting Provider Family Medicine; Emergency Provider Emergency Medicine; PCP Family Medicine; Visit Provider Family Medicine
PROC: 0DJ08ZZ Inspection of Upper Intestinal Tract, Via Natural or Artificial Opening Endoscopic (ICD-10-PCS; CPT 43235; principal; 2020-08-12 08:30)
DX: I13.0 Hypertensive heart and chronic kidney disease with heart failure and stage 1 through stage 4 chronic kidney disease, or unspecified chronic kidney disease (principal); J96.01 Acute respiratory failure with hypoxia; I50.33 Acute on chronic diastolic (congestive) heart failure; Z68.44 Body mass index [BMI] 60.0-69.9, adult; I48.20 Chronic atrial fibrillation, unspecified; E66.01 Morbid (severe) obesity due to excess calories; E11.22 Type 2 diabetes mellitus with diabetic chronic kidney disease; N18.30 Chronic kidney disease, stage 3 unspecified; K25.9 Gastric ulcer, unspecified as acute or chronic, without hemorrhage or perforation; K57.30 Diverticulosis of large intestine without perforation or abscess without bleeding; D12.5 Benign neoplasm of sigmoid colon; G47.33 Obstructive sleep apnea (adult) (pediatric); Z99.89 Dependence on other enabling machines and devices; G47.429 Narcolepsy in conditions classified elsewhere without cataplexy; R53.1 Weakness; D50.0 Iron deficiency anemia secondary to blood loss (chronic); G25.81 Restless legs syndrome; E55.9 Vitamin D deficiency, unspecified; K59.00 Constipation, unspecified; E03.9 Hypothyroidism, unspecified; E78.5 Hyperlipidemia, unspecified; M19.90 Unspecified osteoarthritis, unspecified site; W07.XXXA Fall from chair, initial encounter; Y93.E1 Activity, personal bathing and showering; Z74.01 Bed confinement status; Z79.01 Long term (current) use of anticoagulants; Z79.899 Other long term (current) drug therapy; Z86.010 Personal history of colon polyps; Z87.891 Personal history of nicotine dependence; Z88.0 Allergy status to penicillin; Z95.0 Presence of cardiac pacemaker; Z98.42 Cataract extraction status, left eye; Z98.41 Cataract extraction status, right eye
CPT/HCPCS: 36415; 36600; 71045; 80048; 80053; 82375; 82607; 82728; 82746; 82805; 83036; 83050; 83540; 83550; 83735; 83880; 84443; 84466; 85025; 85027; 85046; 85610; 85730; 87081; 88305; 93005; 94618; 96374; 96376; 97110; 97116; 97161; 97165; 97530; 97535; 99285; A9270; G0378; J1940; J2704; J7120

== ENCOUNTER 2021-10-09 11:36 | Outpatient (NON) | payer MEDICARE, SELFPAY ==
[2021-10-09 12:21] LABS: Anion Gap 5 mmol/L (8-16); Blood Urea Nitrogen 11 mg/dL (7-17); Calcium 8.8 mg/dL (8.4-10.2); Carbon Dioxide 34 mmol/L (22-30); Chloride 98 mmol/L (98-107); Estimated Glomerular Filt Rate > 60; Glucose 177 mg/dL (65-110); Magnesium 1.3 mg/dL (1.6-2.3); Potassium 4.5 mmol/L (3.4-5.0); Sodium 137 mmol/L (137-145)
== END 2021-10-09 11:37 | disposition home or self-care (01) ==
LOC: HOME HLTH 11:44
PROVIDERS: PCP Family Medicine; Visit Provider Family Medicine
DX: N18.30 Chronic kidney disease, stage 3 unspecified (principal); E11.22 Type 2 diabetes mellitus with diabetic chronic kidney disease
CPT/HCPCS: 80048; 83735

== ENCOUNTER 2021-10-17 07:22 | Observation (INO) | payer MEDICARE, SELFPAY ==
[2021-10-17] VITALS (23 sets, daily range): BP systolic 110–158; BP diastolic 52–89; PULSE 70–83; RESP 14–30; TEMP 36.3–36.8; O2SAT 93–100; BMI 67.5
--- NOTE | ~2021-10-17 | US_ITS ---
EXAMINATION: US venous doppler [facility] DATE: 10/18/2021 12:24 INDICATION: Lower limb swelling. TECHNIQUE: Grayscale ultrasound images without and with compression and Doppler ultrasound images of the bilateral lower extremity veins were obtained. COMPARISON: Ultrasound 06/06/2019 FINDINGS: The visualized portions of right common femoral vein, profunda (deep) femoral vein, femoral vein, pop liteal vein, posterior tibial veins, and greater saphenous vein outflow are patent. The visualized portions of left common femoral vein, profunda femoral vein, femoral vein, popliteal v ein, peroneal veins, posterior tibial veins, and greater saphenous vein outflow are patent. IMPRESSION: 1. No deep venous thrombosis. Reviewed, dictated and finalized at location A. ESSOR OF POLITICAL SCIENCE
--- NOTE | ~2021-10-17 | CT_ITS ---
EXAMINATION: CT brain wo con DATE: 10/18/2021 15:14 INDICATION: Right-sided facial droop TECHNIQUE: Computed tomography (CT) of the head was performed without intravenous contrast. Sagittal and coronal reconstructions were performed. The mA was adjusted according to patient size. Iterative reconstruction technique was employed. The dose-length product was 681.00 mGy-cm. COMPARISON: None FINDINGS: No acute intracranial hemorrhage, acute infarction or abnormal extra axial fluid collection. There is mild scattered white matter hypoattenuation consistent with chronic small vessel ischemic disease. S ymmetric prominence of the sulci consistent with mild age-appropriate diffuse cerebral volume loss. V entricles are normal and symmetric. No mass/mass effect. Changes of bilateral intraocular lens replac ement. The orbits and mastoid air cells are normal. Small amount of posterior layering fluid in the l eft maxillary sinus and mucosal thickening the left frontal and ethmoid sinuses with occlusion of the left frontoethmoidal recess. Intracranial calcified cerebral atherosclerosis is noted. IMPRESSION: 1. Normal aging brain. No acute intracranial process. Reviewed, dictated and finalized at location A. AL ASSOCIATE
--- NOTE | ~2021-10-17 | XR_ITS ---
EXAMINATION: XR chest 2V DATE: 10/17/2021 07:53 INDICATION: Hypoxia. Shortness of breath. TECHNIQUE: Frontal and lateral views of the chest were obtained. COMPARISON: Chest single view 08/13/2020, chest CT 06/05/2019 FINDINGS: Sensitivity is decreased by obesity. There is no pneumonia, pleural effusion, or pneumothor ax. Cardiomegaly is noted. There is a left chest wall pacer with leads in the right atrium and right ventricle. IMPRESSION: 1. Cardiomegaly. Reviewed, dictated and finalized at location A. EAR CHEMISTRY TECHNICIAN IMPRESSION: 1. Cardiomegaly.
--- NOTE | 2021-10-17 07:30 | ECG_ITS ---
Measurements Intervals [place] Rate: 78 P: NH: 0 QRS: 246 QRSD: 167 T: 40 QT: 398 QTc: 456 Interpretive Statements ELECTRONIC VENTRICULAR PACEMAKER NO FURTHER INTERROGATION POSSIBLE COMPARED TO ECG 08/07/2020 12:05:58 NO SIGNIFICANT CHANGES Electronically Signed On 10-17-2021 15:09:30 LEGAL RECORDS MANAGER by Julio Donovan M.D.
[2021-10-17 07:57] LABS: Basophils Percent Auto 0.2 % (0.2-1.2); Eosinophils Percent Auto 0.2 % (0-4.4); Hematocrit 39.2 % (37.0-47.0); Hemoglobin 12.6 g/dL (12.0-15.0); Immature Granulocyte Absolute 0.12 K/mm3 (0.00-0.031); Immature Granulocyte Percent A 0.9 % (0-0.5); Lymphocytes Absolute Auto 0.52 K/mm3 (0.9-3.2); Lymphocytes Percent Auto 3.9 % (18.3-44.2); Mean Corpuscular HGB Conc 32.1 g/dl (32-36); Mean Corpuscular Hemoglobin 32.5 pg (26-34); Mean Platelet Volume 9.9 fl (7.4-10.4); Monocytes Absolute Auto 0.5 K/mm3 (0.1-0.6); Monocytes Percent Auto 3.4 % (2.6-8.5); Neutrophils Absolute Auto 12.3 K/mm3 (1.3-6.7); Neutrophils Percent Auto 91.4 % (45.5-73.1); Platelet Count Result 191 k/mm3 (150-375); Red Blood Count 3.88 M/mm3 (4.2-5.4); Red Cell Distribution Width 14.1 % (11.5-14.5); White Blood Count 13.4 K/mm3 (4.5-10.0)
[2021-10-17 08:11] LABS: Alanine Aminotransferase 15 U/L (4-35); Albumin Level 4.3 g/dL (3.5-5.1); Alkaline Phosphatase 60 U/L (38-126); Anion Gap 7 mmol/L (8-16); Aspartate Amino Transferase 27 U/L (14-36); Bilirubin,Total 0.7 mg/dL (0.2-1.3); Blood Urea Nitrogen 14 mg/dL (7-17); Calcium 9.2 mg/dL (8.4-10.2); Carbon Dioxide 31 mmol/L (22-30); Chloride 97 mmol/L (98-107); Estimated CRCL calculation 73 ml/min; Estimated Glomerular Filt Rate 54; Glucose 193 mg/dL (65-110); Potassium 4.4 mmol/L (3.4-5.0); Sodium 135 mmol/L (137-145)
[2021-10-17 08:12] LABS: INR 1.3
[2021-10-17 08:13] LABS: Partial Thromboplastin Time 31.2 SECONDS (22.3-36.8)
[2021-10-17 08:25] LABS: NT Pro B Type Natriuretic Pept 1190 pg/mL (5-100); Troponin I 0.421 ng/mL (0.000-0.034)
--- NOTE | 2021-10-17 08:39 | ED.SOB ---
HPI - SOB/Dyspnea General Chief Complaint: Shortness of Breath/Dyspnea Stated Complaint: dyspnea Time Seen by Provider: 10/17/21 07:26 History of Present Illness HPI Narrative: Patient is a 76-year-old female who presents ER with shortness of breath. Ongoing for 2 days. Has mild cough. No fevers or chills or sweats. Cough is nonproductive. According to EMS patient was tripoding upon their arrival at her home. She was satting 94% on room air. They placed 4 L nasal cannula on her for comfort which patient reports improved her shortness of breath. She has no chest pain or chest pressure. She is followed by the [facility] and Dr. Donovan. She is without orthopnea. Related Data Allergies Allergy/AdvReac Type Severity Reaction Status Date / Time bacitracin Allergy Intermediate Swelling Verified 07/18/21 10:27 neomycin Allergy Intermediate Swelling Verified 07/18/21 10:27 Penicillins Allergy Unknown Unknown Verified 07/18/21 10:27 polymyxin B Allergy Unknown Unknown Verified 07/18/21 10:27 Review of Systems Review of Systems: All systems reviewed & are unremarkable except as noted in HPI and below Constitutional: Constitutional: Denies chills, Reports fatigue, Denies fever(s) and Reports weakness ENT: Denies nasal congestion and Denies sore throat Cardiovascular: Cardiovascular: Denies chest pain, Denies rapid heart rate and Denies radiating jaw, neck or arm pain Respiratory: Respiratory: Denies chest congestion, Reports cough, Reports dyspnea and Denies wheezing Gastrointestinal: Gastrointestinal: Denies abdominal pain, Denies nausea and Denies vomiting Neurologic: Denies headache(s), Denies focal weakness and Denies numbness PMFSH Past Medical History Medical History Atrial fibrillation Failed cardioversion x2. Status post AV malathi ablation and biventricular pacemaker insertion on 04/22/2020. Chronic kidney disease, stage 3 Baseline creatinine is around 1.0. 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 Family History Family History Father Hypertension Family history of coronary artery disease Social History Social History Social History: The patient lives in [facility] with her . They have 4 sons. She retired from working at the [employer] in [place]. She smoked 0.5 to 0.75 packs of cigarettes a day for about 30 years and quit in 1994. No alcohol or illicit substance abuse. Her Juan David and son Andrea are her surrogate decision makers and she is listed as a full code. Smoking packs per day: 0.75 Smoking cigarettes per day: 15.0 Years smoked: 30 Smoking pack-years: 22.50 Smoking status: Former smoker Tobacco type: cigarettes Second hand tobacco smoke exposure: Yes Alcohol intake: former Alcohol use details: rarely Substance use: never Substance use type: does not use Gender identity (if verbalized by the patient): Female Spiritual care concerns: No Exam Narrative: GENERAL: Chronically ill-appearing, morbidly obese, and in no acute distress. HEAD: Normocephalic, atraumatic. EYES: PERRL and EOMI. ENT: Mucous membranes moist. CHEST: Clear to auscultation. No respiratory distress.
--- NOTE | 2021-10-17 09:07 | PC.NURSE ---
Pt. to CT
[2021-10-17 11:56] LABS: Troponin I 0.404 ng/mL (0.000-0.034)
--- NOTE | 2021-10-17 13:45 | PM.IMHP ---
H&P: HPI History of Present Illness Date/Time: Patient was placed observation status for expected length of stay less than 23 hours for management, will plan to re-evaluate tomorrow for improvement. 10/17/21 13:45 Chief Complaint: Shortness of breath Narrative: Ms. Pop is a 76-year-old female who presented the hospital with complaints of shortness of breath that started last evening. Patient has a known history of atrial fibrillation status post AV node ablation with a Bi V pacemaker placed, congestive heart failure with a preserved ejection fraction, diabetes mellitus, hypothyroidism, obstructive sleep apnea, narcolepsy, iron deficiency anemia, morbid obesity, and noncompliance. Patient is not willing to answer all questions at this time because she states that her neck hurts and she wants pain medication. Patient states she began having shortness of breath last night and she felt extremely short of breath this morning. Patient states she is compliant with her CPAP and she was wearing it. Patient denied any chest discomfort with her shortness of breath. Patient is refusing to answer all other questions at this time. Upon evaluation in emergency room patient was noted to have mildly elevated troponin at 0.421 and a 2nd troponin is 0.404. Patient did have a BNP of 1190 which is her lowest BNP on record. Per outside records patient has been noncompliant with some of her medications. Patient has refused to take iron in the past as well as her magnesium. Patient has been seen by Cardiology multiple times and she continues to complain of shortness of breath, fatigue, and edema. Her medications have been changed multiple times with no relief. Review of Systems Review of Systems: I was unable to obtain a full 12 point review of systems secondary to patient stating she is in pain she does not answer any questions at this time. [facility] Past Medical History Medical History (Updated 10/17/21 @ 13:51 by Kirstin Kingslye APRN) Atrial fibrillation Failed cardioversion x2. Status post AV malathi ablation and biventricular pacemaker insertion on 04/22/2020. Chronic kidney disease, stage 3 Baseline creatinine is around 1.0. 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 Family History Family History Father Hypertension Family history of coronary artery disease Social History Social History Social History: The patient lives in [facility] with her . They have 4 sons. She retired from working at the [employer] in [place]. She smoked 0.5 to 0.75 packs of cigarettes a day for about 30 years and quit in 1994. No alcohol or illicit substance abuse. Her Juan David and son Andrea are her surrogate decision makers and she is listed as a full code. Smoking packs per day: 0.75 Smoking cigarettes per day: 15.0 Years smoked: 30 Smoking pack-years: 22.50 Smoking status: Former smoker Tobacco type: cigarettes Second hand tobacco smoke exposure: Yes Alcohol intake: former Alcohol use details: rarely Substance use: never Substance use type: does not use Gender identity (if verbalized by the patient): Female Spiritual care concerns: Yes (Yazdanism) Meds Home Medications and Allergies Home Med
--- NOTE | 2021-10-17 14:49 | ECHO_ITS ---
Patient Info Name: Lesvia Pop Age: 76 years : 1945 Gender: Female Ht: 65 in Wt: 405 lbs BSA: 3.03 m2 HR: 76 bpm BP: 134 / 71 mmHg Heart Rhythm: Paced Technical Quality: Fair Exam Date: 10/17/2021 3:29 PM Exam Location: [facility] Pulmonary Patient Status: Outpatient Admit Date: 10/17/2021 Staff Ordering Physician: Julio Donovan MD Agriculture Technician: Amanda Aponte RDCS Attending Provider: Toma Ralph MD Referring Physician: Venus RDZ; Exam Type: CA echo dop color flow w con Study Info Indications - Short of breath, elevated troponin Complete two-dimensional, color flow and Doppler transthoracic echocardiogram is performed with contrast to opacify the left ventricle and to improve the deliniation of the left ventricle endocardial borders. Contrast/Agitated Saline Contrast/Ag. Saline: Definity Amount: 2.00 ml Administered By: Amanda Aponte RDCS Existing IV Access: Yes IV Access Condition: patent with no signs of infiltration Summary 1. Very technically difficult study with limited views despite definity echo contrast enhancement. Regional wall motion assessment limited due to poor endomyocardial border definition. 2. Left ventricular chamber dimension is mildly enlarged. 3. Left ventricular systolic function is normal, estimated at >70%. 4. There is mildly increased left ventricular wall thickness. 5. There is trace tricuspid valve regurgitation. 6. No pulmonary hypertension, estimated pulmonary arterial systolic pressure is 18 mmHg. Left Ventricle Very technically difficult study with limited views despite definity echo contrast enhancement. Regional wall motion assessment limited due to poor endomyocardial border definition. Left ventricular chamber dimension is mildly enlarged. Left ventricular systolic function is normal, estimated at >70%. There is mildly increased left ventricular wall thickness. Left ventricular septal wall motion is abnormal with septal motion related to pacing. The left ventricular diastolic function is abnormal. Right Ventricle Right ventricular chamber dimension is not well visualized. Left Atria Left atrial chamber dimension is normal. Right Atria Right atrial chamber dimension is mildly enlarged. Aortic Valve The aortic valve is not well visualized. There is no aortic valve stenosis. Pulmonic Valve The pulmonic valve is not well visualized. Mitral Valve The mitral valve has not well visualized. Tricuspid Valve The tricuspid valve leaflets are not well visualized. There is trace tricuspid valve regurgitation. No pulmonary hypertension, estimated pulmonary arterial systolic pressure is 18 mmHg. Pericardium/Pleural The pericardium appears not well visualized. Inferior Vena Cava Normal inferior vena cava with >50% collapse upon inspiration consistent with normal right atrial pressure, 5 mmHg. Aorta The aortic root size at the sinus of Valsalva is mildly dilated. There is mild aortic atherosclerosis. Left Ventricular Outflow Tract Name Value Normal LVOT 2D LVOT Diameter 2.04 cm LVOT Doppler
--- NOTE | 2021-10-17 14:53 | PC.NURSE ---
This patient, Lesvia Pop, was admitted to IMU Room 200-01. Patient/family oriented to hospital policies and general routines including ID bracelet, bed and alarms, visiting hours, pain management, procedures, bathroom and other care routines, personal items, smoking policy, room service/diet, and visiting hours. Information on how to activate the Rapid Response Team has been discussed. Patient/Family are encouraged to report perceived risks to care and to ask questions if they do not understand what they are told or what they should do.
[2021-10-17] MEDS: PERFLUTREN LIPID MICROSPHERES 1.5 ML VIAL DILUTED TO 10 ML TOTAL VOLUME IV PUSH (16:14)
--- NOTE | 2021-10-17 16:14 | IVDEFINITY ---
Prior to administration of IV Definity the patient was educated on the risks and benefits of the imaging enhancing agent including potential adverse side effects. The patient verbalized understanding. Allergies were verified. No exclusion criteria were identified and at least one of the following inclusion criteria were met: 1) physician request, 2) patient technically difficult to image (per the [place] [employer]chocardi[employer] guidelines of two or more segments not discernable within the apical view), or 3) questionable left ventricular function. ?
--- NOTE | 2021-10-17 16:17 | PM.CNCAR ---
Assessment and Plan Assessment and plan (1) Heart failure with preserved ejection fraction: Qualifiers: Heart failure chronicity: acute on chronic Qualified Code(s): I50.33 - Acute on chronic diastolic (congestive) heart failure Code(s): I50.30 - Unspecified diastolic (congestive) heart failure Status: Acute Assessment and Plan: History of chronic heart failure with preserved ejection fraction. BNP minimally elevated and lower than all other previous assessments, chest x-ray diminished sensitivity but no significant pulmonary vascular congestion nor on exam. Clinically, patient does not appear to be significantly volume overloaded and in fact has minimal lower extremity edema which has been a chronic problem. Wean O2 as tolerated. May give Lasix 40 mg IVx1 to observe response if symptoms worsen although compared to her previous baseline she clinically appears less volume overloaded than is typical. She previously had discontinued Lasix on her own she did not feel there is a benefit and so has not been taking for at least 2 months. She is on O2 but has not been documented to be hypoxic. Check magnesium level. If patient has become severely hypomagnesemic this also contribute to patient's symptom complex. Magnesium low 1.3 on 10/09/2021. Replete to keep magnesium level around 2.0. Check TSH. (2) Elevated troponin: Code(s): R79.89 - Other specified abnormal findings of blood chemistry Status: Acute Assessment and Plan: Mild troponin elevation without anginal symptoms, flat curve. Unable to interpret ECG due to biventricular pacing. No known history of CAD. Need to confirm compliance with Eliquis b.i.d. specifically although they state they have been. Consider CT PE protocol with concern for PE but patient does not fit into the scanner so was canceled. Check lower extremity venous Dopplers. So far, this does not appear to be secondary to acute coronary syndrome and/or plaque rupture with likely type 2 infarct. (3) Confusion: Code(s): R41.0 - Disorientation, unspecified Status: Acute Assessment and Plan: Etiology unclear. Would not be explained by O2 saturation. Check blood cultures, infection evaluation. ABG. (4) Obstructive sleep apnea on CPAP: Code(s): G47.33 - Obstructive sleep apnea (adult) (pediatric); Z99.89 - Dependence on other enabling machines and devices Status: Acute Assessment and Plan: Compliance with CPAP (5) Presence of biventricular cardiac pacemaker: Code(s): Z95.0 - Presence of cardiac pacemaker Status: Acute Assessment and Plan: Normal device function, biventricular pacing secondary to AV malathi ablation (6) Hypertension: Qualifiers: Hypertension type: unspecified Qualified Code(s): I10 - Essential (primary) hypertension Code(s): I10 - Essential (primary) hypertension Status: Chronic Assessment and Plan: Stable. (7) Atrial fibrillation: Qualifiers: Atrial fibrillation type: unspecified chronic Qualified Code(s): I48.20 - Chronic atrial fibrillation, unspecified Code(s): I48.91 - Unspecified atrial fibrillation Status: Acute Assessment and Plan: Chronic, status post AV malathi ablation (8) Type 2 diabetes mellitus with other diabetic kidney complication: Code(s): E11.29 - Type 2 diabetes mellitus with other diabetic kidney complication Status: Acute Assessment and Plan: Per primary service. (9) Morbid obesity with BMI of 60.0-69.9, adult: Code(s): E66.01 - Morbid (severe) obesity due to excess calories; Z68.44 - Body mass index [BMI] 60.0-69.9, adult Status: Acute (10) Chronic anticoagulation: Code(s): Z79.01 - group home (current) use of anticoagulants Status: Acute Assessment and Plan: Eliquis 5 mg b.i.d. for embolic stroke risk reduction History of Present Illness History of Iliana
[2021-10-17 16:18] LABS: Glucose Point of Care 164 mg/dl (65-105)
[2021-10-17 17:40] LABS: Troponin I 0.223 ng/mL (0.000-0.034)
[2021-10-17 18:02] LABS: Magnesium 0.8 mg/dL (1.6-2.3)
[2021-10-17 20:45] LABS: Glucose Point of Care 136 mg/dl (65-105)
[2021-10-17 22:33] LABS: Alveolar/Arterial O2 Gradient 70.5 mmHg; Base Excess ABG 2.6 mEq/l (+/-2.0); Fractional Inspired Oxygen 28 %; HCO3 ABG 26.7 mEq/l (22.0-26.0); Oxygen Content ABG 18.1 %vol (16.0-22.0); Oxygen Saturation ABG 96.6 % (95.0-100.0); PCO2 ABG 39.5 mmHg (35.0-45.0); PO2 ABG 82.5 mmHg (80.0-100.0); PO2 FiO2 Ratio Arterial Blood 2.95 %; Total Hemoglobin 13.5 g/dL (12.0-18.0); pH ABG 7.448 (7.350-7.450)
[2021-10-17 22:36] LABS: Device NASAL CANNULA; Modified Allen's Test Pass; Site Drawn LEFT RADIAL
[2021-10-17] MEDS: MAGNESIUM SULF 4 GM/WATER100ML 4 GM/100 ML BAG IVPB (23:22)
[2021-10-17] MEDS: FAMOTIDINE 20 MG TABLET PO (23:23)
--- NOTE | 2021-10-17 23:30 | PCRCNOTE ---
Pt has her home CPAP machine but dumped water from the humidifier through it. A CPAP order for one our machines was obtained with her home CPAP settings. Pt wore for approximately 10 minutes before stating that it is too much. The CPAP was reduced to match the ramp pressure of her home machine, with the intention of turning it up manually over time since the Vision does not have a ramp feature. Unfortunately, pt stated that, even at a pressure of +7, it is too much and insisted we remove it and put her back on her 2L NC.
[2021-10-18] VITALS (20 sets, daily range): BP systolic 131–143; BP diastolic 61–89; PULSE 68–85; RESP 18–27; TEMP 36.6–37.5; O2SAT 90–99
[2021-10-18] MEDS: LEVOTHYROXINE SODIUM 100 MCG TABLET 200 MCG PO (06:53)
[2021-10-18 07:12] LABS: Basophils Percent Auto 0.1 % (0.2-1.2); Eosinophils Percent Auto 0.1 % (0-4.4); Hematocrit 37.5 % (37.0-47.0); Hemoglobin 12.1 g/dL (12.0-15.0); Immature Granulocyte Absolute 0.06 K/mm3 (0.00-0.031); Immature Granulocyte Percent A 0.6 % (0-0.5); Lymphocytes Absolute Auto 0.56 K/mm3 (0.9-3.2); Lymphocytes Percent Auto 5.2 % (18.3-44.2); Mean Corpuscular HGB Conc 32.3 g/dl (32-36); Mean Corpuscular Hemoglobin 32.6 pg (26-34); Mean Corpuscular Volume 101.1 fl (80-100); Mean Platelet Volume 9.9 fl (7.4-10.4); Monocytes Absolute Auto 0.4 K/mm3 (0.1-0.6); Monocytes Percent Auto 3.5 % (2.6-8.5); Neutrophils Absolute Auto 9.8 K/mm3 (1.3-6.7); Neutrophils Percent Auto 90.5 % (45.5-73.1); Platelet Count Result 162 k/mm3 (150-375); Red Blood Count 3.71 M/mm3 (4.2-5.4); Red Cell Distribution Width 14.6 % (11.5-14.5); White Blood Count 10.8 K/mm3 (4.5-10.0)
[2021-10-18 07:25] LABS: Anion Gap 8 mmol/L (8-16); Blood Urea Nitrogen 16 mg/dL (7-17); Calcium 8.5 mg/dL (8.4-10.2); Carbon Dioxide 28 mmol/L (22-30); Chloride 95 mmol/L (98-107); Estimated CRCL calculation 85 ml/min; Estimated Glomerular Filt Rate > 60; Glucose 142 mg/dL (65-110); Magnesium 1.7 mg/dL (1.6-2.3); Sodium 131 mmol/L (137-145)
[2021-10-18] MEDS: FUROSEMIDE 40 MG TABLET PO ×2 (08:19→17:35)
[2021-10-18] MEDS: FERROUS SULFATE 324 MG TABLET PO ×2 (08:19→17:35)
[2021-10-18] MEDS: MAGNESIUM OXIDE 400 MG TABLET PO (08:19)
[2021-10-18] MEDS: METOPROLOL SUCCINATE EXT REL 25 MG TABCR PO (08:19)
[2021-10-18] MEDS: DULoxetine HCL 60 MG CAPSULE.DR PO (08:19)
[2021-10-18] MEDS: ATORVASTATIN 10 MG TABLET PO (08:19)
[2021-10-18] MEDS: FAMOTIDINE 20 MG TABLET PO ×2 (08:19→21:10)
[2021-10-18] MEDS: APIXABAN 5 MG TABLET PO (08:19)
[2021-10-18] MEDS: BETAMETHASONE/CLOTRIMAZOLE CR 15 GM TUBE 1 APPLIC TOPICAL ×2 (08:20→17:35)
[2021-10-18] MEDS: POTASSIUM CHLORIDE 20 MEQ TABLET.ER PO (08:20)
[2021-10-18] MEDS: FOLIC ACID 1 MG TABLET PO (08:20)
[2021-10-18] MEDS: FUROSEMIDE INJ 40 MG/4 ML VIAL IV PUSH (08:21)
--- NOTE | 2021-10-18 08:28 | PM.PNCARD ---
Progress Note: A&P Assessment and Plan (1) Acute dyspnea: Code(s): R06.00 - Dyspnea, unspecified Status: Acute Assessment and Plan: Patient denies shortness of breath but apparently appeared SOB on EMS arrival. Has not been hypoxic and ABGs look pretty good. Not clearly in any CHF. Looks good today. Lower extremity Dopplers pending. Will have patient get out of bed and see how she does without O2. Urinalysis is still pending as well. DC IV furosemide Possible discharge today or tomorrow? (2) Confusion: Code(s): R41.0 - Disorientation, unspecified Status: Acute Assessment and Plan: Resolved. Perhaps due to hypomagnesia? UA is still pending. (3) Hypomagnesemia: Code(s): E83.42 - Hypomagnesemia Status: Acute Assessment and Plan: Chronic problem, oral magnesium causes diarrhea. Perhaps try Slow-Mag 64 mg daily and see if that is tolerable. Add amiloride 10 mg qd to help preserve magnesium Reduce Kcl to 20 mEq once daily May need to reduce furosemide Follow closely as an outpatient w/ BMP/magnesium level, and office FU (4) Elevated troponin: Code(s): R79.89 - Other specified abnormal findings of blood chemistry Status: Acute Assessment and Plan: Nonspecific; no ACS. (5) Chronic diastolic CHF (congestive heart failure): Code(s): I50.32 - Chronic diastolic (congestive) heart failure Status: Acute Assessment and Plan: Apparently short of breath at home. Not clear if patient truly had an acute exacerbation as her edema was minimal, proBNP was low for her, and chest x-ray was unremarkable. Received some IV furosemide ; will switch back to her oral furosemide. (6) Atrial fibrillation: Qualifiers: Atrial fibrillation type: unspecified chronic Qualified Code(s): I48.20 - Chronic atrial fibrillation, unspecified Code(s): I48.91 - Unspecified atrial fibrillation Status: Acute Assessment and Plan: Persistent AFib, status post AV node ablation and biventricular pacemaker, stable, tolerating Eliquis. Subjective Date/time seen: 10/18/21 08:28 76-year-old female admitted with shortness of breath and confusion. Followed by Dr. Donovan for her history of AFib, av node ablation, biventricular pacer, chronic diastolic CHF. Also has a history of morbid obesity, chronic lower extremity edema, narcolepsy, hypothyroidism, diabetes, hypertension, MOISE on CPAP. 10/17/2021: Shortness of breath and confusion of unclear etiology. ProBNP 1100 which is lowest she has been. Check lower extremity Dopplers, labs, ABG, trial of Lasix 40 mg IV push x1 10/18/2021: Patient says she never felt bad and was not short of breath, just cold. Mild dry cough for 2 weeks. Eager to go home as it is her 's 82th birthday this weekend and her 4 children are coming into town. Last night was ?miserable? because she had a lot of musculoskeletal pain and she would like to get out of bed. No shortness of breath or other problems today. O2 sat in the 90s, afebrile, BP stable. Not much diuresis. Mildly elevated troponins. Magnesium was 0.8, now 1.7 after supplementation. Echo reviewed as below, EF greater than 70%, no significant valve disease. Review of Systems Constitutional: Constitutional: Denies fatigue and Denies weakness Eyes: Eyes: Reports no additional eye complaints ENT: Denies nasal congestion Cardiovascular: Cardiovascular: Denies chest pain, Denies pedal edema and Denies leg edema Respiratory: Respiratory: Reports cough and Denies dyspnea Gastrointestinal: Gastrointestinal: Denies abdominal pain Genitourinary: Genitourinary: Denies hematuria Musculoskeletal: Musculoskeletal: Reports back pain, Reports arthralgias, Reports neck pain and Reports stiffness Integumentary/Breasts: Skin/Breast: Denies rash Neurologic: Denies Abnormal speech present Psychiatric: Psychiatric: Denies behavioral
[2021-10-18] MEDS: modafiniL (*CRX) 200 MG TABLET PO (09:25)
--- NOTE | 2021-10-18 11:56 | PM.IMPN ---
Progress Note: A&P Assessment and Plan (1) Shortness of breath: Code(s): R06.02 - Shortness of breath Status: Acute Assessment and Plan: -Per ER records patient has never been hypoxic on room air. -She has been placed on oxygen at 2 L for comfort. Patient states she does not wear oxygen at home. -Chest x-ray shows no pulmonary vascular congestion nor does it show any infiltrate or atelectasis. -Patient has no hypoxia or tachycardia -CTA was ordered, but unfortunately patient will not feel to fit in the machine the test was canceled. -Patient's Wells score for pulmonary embolism is 1.5 which puts her at low risk. The only risk that she does have his immobilization secondary to her morbid obesity. -Will check venous dopplers -IV lasix stopped per cardiology -Wean oxygen as tolerated (2) Elevated troponin: Code(s): R79.89 - Other specified abnormal findings of blood chemistry Status: Acute Assessment and Plan: -Patient's initial troponin was 0.421 and flattened at 0.404. -Cardiology consulted -does not seem to be ACS (3) Generalized weakness: Code(s): R53.1 - Weakness Status: Acute Assessment and Plan: -This is a chronic issue for patient. -no signs of infection, vitals stable, UA pending -Will have PT/OT to evaluate and treat once patient has been evaluated by Cardiology. (4) Atrial fibrillation: Qualifiers: Atrial fibrillation type: unspecified chronic Qualified Code(s): I48.20 - Chronic atrial fibrillation, unspecified Code(s): I48.91 - Unspecified atrial fibrillation Status: Acute Assessment and Plan: -Patient is paced at this time. -Will continue with home anticoagulation. (5) Hypomagnesemia: Code(s): E83.42 - Hypomagnesemia Status: Acute Assessment and Plan: -monitor and replace -pt is non compliant with her mag supplement at home -per cardiology, add amiloride, reduce KCL, possibly will reduce lasix -will be followed closely outpatient w/ repeat BMP and mag s/p discharge Subjective Date/time seen: 10/18/21 08:00 Interval history: 76-year-old female w/ hx of atrial fibrillation status post AV node ablation with a Bi V pacemaker placed, congestive heart failure with a preserved ejection fraction, diabetes mellitus, hypothyroidism, obstructive sleep apnea, narcolepsy, iron deficiency anemia, morbid obesity, and noncompliance, admitted to the hospital for sob. Pt states sob is improving. She is 96% on 2L NC on my evaluation. Hx of MOISE but not COPD. Does not use home oxygen. Denies cp, N/V/D, abd pain, fevers. Review of Systems Review of Systems: All systems reviewed & are unremarkable except as noted in HPI and below Exam Narrative: Constitutional: Patient is a 76-year-old morbidly obese female who is in no acute distress at this time. BMI 71.1, 193.7 kg. HEENT: Moist mucous membranes. No scleral icterus. Neck: Supple Lungs: Lung sounds are decreased to auscultation bilaterally. No accessory muscle use. No rhonchi, rales, or wheezes noted. Cardiovascular: RRR, no murmur Abdomen: Soft, obese, and nontender. No palpable masses. Extremities: 1+ edema to bilateral lower extremities. Nontender. Neurological: No focal neurological deficits. Cranial nerves II-XII grossly intact. Patient is alert and oriented x3 Psychiatric: Cooperative, appropriate mood, and affect Objective Data Vital Signs Vital Signs: Vital Signs - 24 hr 10/17/21 12:00 10/17/21 13:05 10/17/21 13:33 Temperature 97.4 F L Pulse Rate 74 76 71 Respiratory Rate 20 20 20 Blood Pressure 110/68 116/70 145/65 H Pulse Oximetry 100 98 100 10/17/21 14:10 10/17/21 14:34 10/17/21 14:45 Temperature 97.6 F 98.0 F Pulse Rate 76 70 Respiratory Rate 24 H Blood Pressure 134/71 Pulse Oximetry 98 10/17/21 16:00 10/17/21 16:30 10/17/21 19:47 Temperatur
[2021-10-18] MEDS: modafiniL (*CRX) 100 MG TABLET PO (13:00)
[2021-10-18] MEDS: traZODone HCL 50 MG TABLET PO (21:10)
[2021-10-18] MEDS: HYDROcodone/acetaminophen (*CRX) 5-325 MG TABLET 1 TAB PO (21:11)
[2021-10-18 21:30] LABS: Add Urine Microscopic? YES; Appearance Urine Clear (Clear); Bilirubin Urine Negative (Negative); Blood Urine 3+ (Negative); Color Urine Yellow (Yellow); Glucose Urine UA Negative (Negative); Ketones Urine Negative (Negative); Leukocyte Esterase Ur Negative LEU/UL (Negative); Mucus Urine Rare /lpf; Nitrate Urine Negative (Negative); Protein Urine Negative (Negative); RBC Urine >75 /hpf (0-2); Specific Grav Ur 1.009 (1.001-1.035); Squamous Epithelial Cell Urine Rare /hpf (Few); Urobilinogen Urine Negative mg/dL (<2.0); WBC Urine 0-3 /hpf
[2021-10-19] VITALS (17 sets, daily range): BP systolic 112–144; BP diastolic 55–75; PULSE 70–81; RESP 16–22; TEMP 36.4–37.6; O2SAT 90–98
--- NOTE | 2021-10-19 03:04 | PC.NURSE ---
Daylight Savings Time For Daylight Savings Time Ending in the Fall - Clocks are moved back. For Daylight Savings Time Beginning in the Spring - Clocks are moved ahead. For [facility], the time of change occurs at 0200 hrs. Time is taken from the ware server. This entry on the patient's chart recognizes the change in time reflected during documentation. Example: 2 entries for vital signs may be charted for 0200 hrs.
[2021-10-19 06:38] LABS: Basophils Percent Auto 0.2 % (0.2-1.2); Eosinophils Absolute Auto 0.1 K/mm3 (0-0.3); Eosinophils Percent Auto 0.9 % (0-4.4); Hematocrit 40.5 % (37.0-47.0); Hemoglobin 13.1 g/dL (12.0-15.0); Immature Granulocyte Absolute 0.05 K/mm3 (0.00-0.031); Immature Granulocyte Percent A 0.5 % (0-0.5); Lymphocytes Absolute Auto 0.72 K/mm3 (0.9-3.2); Lymphocytes Percent Auto 7.4 % (18.3-44.2); Mean Corpuscular HGB Conc 32.3 g/dl (32-36); Mean Corpuscular Hemoglobin 32.4 pg (26-34); Mean Corpuscular Volume 100.2 fl (80-100); Mean Platelet Volume 9.9 fl (7.4-10.4); Monocytes Absolute Auto 0.3 K/mm3 (0.1-0.6); Monocytes Percent Auto 3.1 % (2.6-8.5); Neutrophils Absolute Auto 8.5 K/mm3 (1.3-6.7); Neutrophils Percent Auto 87.9 % (45.5-73.1); Platelet Count Result 157 k/mm3 (150-375); Red Blood Count 4.04 M/mm3 (4.2-5.4); Red Cell Distribution Width 14.6 % (11.5-14.5); White Blood Count 9.7 K/mm3 (4.5-10.0)
[2021-10-19] MEDS: LEVOTHYROXINE SODIUM 100 MCG TABLET 200 MCG PO (06:39)
[2021-10-19 07:03] LABS: Alanine Aminotransferase 21 U/L (4-35); Alkaline Phosphatase 70 U/L (38-126); Anion Gap 7 mmol/L (8-16); Aspartate Amino Transferase 53 U/L (14-36); Bilirubin,Total 0.7 mg/dL (0.2-1.3); Blood Urea Nitrogen 19 mg/dL (7-17); Calcium 8.7 mg/dL (8.4-10.2); Carbon Dioxide 33 mmol/L (22-30); Chloride 91 mmol/L (98-107); Estimated CRCL calculation 79 ml/min; Estimated Glomerular Filt Rate 54; Glucose 138 mg/dL (65-110); Magnesium 1.5 mg/dL (1.6-2.3); Potassium 3.8 mmol/L (3.4-5.0); Sodium 131 mmol/L (137-145)
--- NOTE | 2021-10-19 09:07 | PM.IMPN ---
Progress Note: A&P Assessment and Plan (1) Shortness of breath: Code(s): R06.02 - Shortness of breath Status: Acute Assessment and Plan: -Per ER records patient has never been hypoxic on room air. -She was placed on oxygen at 2 L for comfort. Patient states she does not wear oxygen at home. -Chest x-ray shows no pulmonary vascular congestion nor does it show any infiltrate or atelectasis. -Patient has no hypoxia or tachycardia -CTA was ordered, but unfortunately patient will not feel to fit in the machine so the test was canceled. -Patient's Wells score for pulmonary embolism is 1.5 which puts her at low risk. The only risk that she does have his immobilization secondary to her morbid obesity. -venous dopplers negative for DVT -IV lasix stopped per cardiology -Weaned off of oxygen, she is 98% on RA at this time, denies sob currently (2) Elevated troponin: Code(s): R79.89 - Other specified abnormal findings of blood chemistry Status: Acute Assessment and Plan: -Patient's initial troponin was 0.421 and flattened at 0.404. -Cardiology consulted -does not seem to be ACS -stable for discharge per cardiology (3) Generalized weakness: Code(s): R53.1 - Weakness Status: Acute Assessment and Plan: -This is a chronic issue for patient. -no signs of infection, vitals stable -PT/OT eval, attempt to get her up with walker today (4) Atrial fibrillation: Qualifiers: Atrial fibrillation type: unspecified chronic Qualified Code(s): I48.20 - Chronic atrial fibrillation, unspecified Code(s): I48.91 - Unspecified atrial fibrillation Status: Acute Assessment and Plan: -Patient is paced at this time. -Will continue with home anticoagulation. (5) Hypomagnesemia: Code(s): E83.42 - Hypomagnesemia Status: Acute Assessment and Plan: -monitor and replace -pt is non compliant with her mag supplement at home -per cardiology, add amiloride, reduce KCL, possibly will reduce lasix -will be followed closely outpatient w/ repeat BMP and mag s/p discharge (6) Facial droop: Code(s): R29.810 - Facial weakness Status: Acute Assessment and Plan: -not witness by myself or staff, reported by patient's daughter in law who is an RN -stat CT head no acute findings -MRI brain pending -normal neurological exam without facial droop on my exam Subjective Date/time seen: 10/19/21 09:07 Interval history: 76-year-old female w/ hx of atrial fibrillation status post AV node ablation with a Bi V pacemaker placed, congestive heart failure with a preserved ejection fraction, diabetes mellitus, hypothyroidism, obstructive sleep apnea, narcolepsy, iron deficiency anemia, morbid obesity, and noncompliance, admitted to the hospital for sob. Pt is feeling better. She is less sob and is off of oxygen, 98% on RA. She does not like the hospital cpap and would like to use her own instead. No chest pain. Patient's daughter in law was visiting yesterday and is an RN, apparently she noticed some facial droop in the patient. RN called me and said patient had a normal neurological exam without deficits when she examined her. I ordered a stat CT head which was negative. MRI brain pending. Pt states she did not notice any facial droop. She denies YOUNG, vision changes, paraesthesias, focal weakness. Review of Systems Review of Systems: All systems reviewed & are unremarkable except as noted in HPI and below Exam Narrative: Constitutional: Patient is a 76-year-old morbidly obese female who is in no acute distress at this time. BMI 71.1, 193.7 kg. HEENT: Moist mucous membranes. No scleral icterus. Neck: Supple Lungs: Lung sounds are decreased to auscultation bilaterally. No accessory muscle use. No rhonchi, rales, or wheezes noted. Cardiovascular: RRR, no murmur Abdomen: Soft, obese, an
[2021-10-19] MEDS: METOPROLOL SUCCINATE EXT REL 25 MG TABCR PO (09:31)
[2021-10-19] MEDS: DULoxetine HCL 60 MG CAPSULE.DR PO (09:31)
[2021-10-19] MEDS: FOLIC ACID 1 MG TABLET PO (09:31)
[2021-10-19] MEDS: ATORVASTATIN 10 MG TABLET PO (09:31)
[2021-10-19] MEDS: MAGNESIUM CHLORIDE 64 MG TABLET PO (09:31)
[2021-10-19] MEDS: POTASSIUM CHLORIDE 20 MEQ TABLET.ER PO (09:31)
[2021-10-19] MEDS: FERROUS SULFATE 324 MG TABLET PO ×2 (09:31→17:54)
[2021-10-19] MEDS: MAGNESIUM OXIDE 400 MG TABLET PO (09:31)
[2021-10-19] MEDS: FUROSEMIDE 40 MG TABLET PO ×2 (09:32→17:55)
[2021-10-19] MEDS: APIXABAN 5 MG TABLET PO (09:32)
[2021-10-19] MEDS: FAMOTIDINE 20 MG TABLET PO ×2 (09:32→20:09)
[2021-10-19] MEDS: aMILoride HCL 5 MG TABLET 10 MG PO (09:32)
[2021-10-19] MEDS: BETAMETHASONE/CLOTRIMAZOLE CR 15 GM TUBE 1 APPLIC TOPICAL ×2 (09:33→17:55)
[2021-10-19] MEDS: modafiniL (*CRX) 200 MG TABLET PO (09:39)
[2021-10-19] MEDS: modafiniL (*CRX) 100 MG TABLET PO (12:45)
--- NOTE | 2021-10-19 13:25 | PC.NURSE ---
This patient, Lesvia Pop, was received from [[facility]] on 10/19/21 at 1325. Patient/family oriented to unit policies and routines
--- NOTE | 2021-10-19 18:14 | PM.PNCARD ---
Progress Note: A&P Assessment and Plan (1) Acute dyspnea: Code(s): R06.00 - Dyspnea, unspecified Status: Acute Assessment and Plan: Patient denies shortness of breath but apparently appeared SOB on EMS arrival. Has not been hypoxic and ABGs look pretty good. Not clearly in any acute CHF. No strong evidence for pulmonary embolus. Looks good today, off O2.. Will have patient get out of bed, work with physical therapy and see how she does without O2. Changed IV furosemide to p.o. on 10/18/2021 Possible discharge soon (2) Confusion: Code(s): R41.0 - Disorientation, unspecified Status: Acute Assessment and Plan: Resolved. Perhaps due to hypomagnesia? UA negative for infection (3) Hypomagnesemia: Code(s): E83.42 - Hypomagnesemia Status: Acute Assessment and Plan: Chronic problem, oral magnesium causes diarrhea. Trying Slow-Mag 64 mg daily and see if that is tolerable. Added amiloride 10 mg qd to help preserve magnesium Reduce Kcl to 20 mEq once daily May need to reduce furosemide Extra IV magnesium today and recheck tomorrow Follow closely as an outpatient w/ BMP/magnesium level, and office FU (4) Elevated troponin: Code(s): R79.89 - Other specified abnormal findings of blood chemistry Status: Acute Assessment and Plan: Nonspecific; no ACS. (5) Chronic diastolic CHF (congestive heart failure): Code(s): I50.32 - Chronic diastolic (congestive) heart failure Status: Acute Assessment and Plan: Apparently short of breath at home. Not clear if patient truly had an acute exacerbation as her edema was minimal, proBNP was low for her, and chest x-ray was unremarkable. Received some IV furosemide ; now back to her oral furosemide. (6) Atrial fibrillation: Qualifiers: Atrial fibrillation type: unspecified chronic Qualified Code(s): I48.20 - Chronic atrial fibrillation, unspecified Code(s): I48.91 - Unspecified atrial fibrillation Status: Acute Assessment and Plan: Persistent AFib, status post AV node ablation and biventricular pacemaker, stable, tolerating Eliquis. Subjective Date/time seen: 10/19/21 18:14 Interval history: 76-year-old female admitted with shortness of breath and confusion. Followed by Dr. Donovan for her history of AFib, av node ablation, biventricular pacer, chronic diastolic CHF. Also has a history of morbid obesity, chronic lower extremity edema, narcolepsy, hypothyroidism, diabetes, hypertension, MOISE on CPAP. 10/17/2021: Shortness of breath and confusion of unclear etiology. ProBNP 1100 which is lowest she has been. Check lower extremity Dopplers, labs, ABG, trial of Lasix 40 mg IV push x1 10/18/2021: Patient says she never felt bad and was not short of breath, just cold. Mild dry cough for 2 weeks. Eager to go home as it is her 's 82th birthday this weekend and her 4 children are coming into town. Last night was ?miserable? because she had a lot of musculoskeletal pain and she would like to get out of bed. No shortness of breath or other problems today. O2 sat in the 90s, afebrile, BP stable. Not much diuresis. Mildly elevated troponins. Magnesium was 0.8, now 1.7 after supplementation. Echo reviewed as below, EF greater than 70%, no significant valve disease. Added amiloride and Slow-Mag, increase activity. Date of service 10/19/2021: Patient not feeling well today, very disappointed that she could not be home to see her 's 82th birthday and family members. Did not want to participate with physical therapy. Diuresed 3 L yesterday, 1800 cc today on po Lasix.. Now on room air. Magnesium low again. Review of Systems Constitutional: Constitutional: Denies fatigue and Denies weakness Eyes: Eyes: Reports no additional eye complaints ENT: Denies nasal congestion and Reports neck pain Cardiovascular: Cardiovascular: Denies chest pain, De
[2021-10-19] MEDS: traZODone HCL 50 MG TABLET PO (20:09)
[2021-10-19] MEDS: MAGNESIUM SULF 2 GM/WATER 50ML 2 GM/50 ML BAG IVPB (20:09)
[2021-10-20] VITALS (10 sets, daily range): BP systolic 133–148; BP diastolic 66–94; PULSE 69–78; RESP 20–21; TEMP 35.6–36.8; O2SAT 90–93
[2021-10-20 06:20] LABS: Basophils Percent Auto 0.3 % (0.2-1.2); Eosinophils Absolute Auto 0.2 K/mm3 (0-0.3); Eosinophils Percent Auto 2.8 % (0-4.4); Hematocrit 34.9 % (37.0-47.0); Hemoglobin 11.4 g/dL (12.0-15.0); Immature Granulocyte Absolute 0.04 K/mm3 (0.00-0.031); Immature Granulocyte Percent A 0.6 % (0-0.5); Lymphocytes Absolute Auto 0.72 K/mm3 (0.9-3.2); Lymphocytes Percent Auto 9.9 % (18.3-44.2); Mean Corpuscular HGB Conc 32.7 g/dl (32-36); Mean Corpuscular Hemoglobin 32.3 pg (26-34); Mean Corpuscular Volume 98.9 fl (80-100); Mean Platelet Volume 10.7 fl (7.4-10.4); Monocytes Absolute Auto 0.5 K/mm3 (0.1-0.6); Monocytes Percent Auto 6.6 % (2.6-8.5); Neutrophils Absolute Auto 5.8 K/mm3 (1.3-6.7); Neutrophils Percent Auto 79.8 % (45.5-73.1); Platelet Count Result 180 k/mm3 (150-375); Red Blood Count 3.53 M/mm3 (4.2-5.4); Red Cell Distribution Width 14.2 % (11.5-14.5); White Blood Count 7.3 K/mm3 (4.5-10.0)
[2021-10-20 06:23] LABS: Alanine Aminotransferase 18 U/L (4-35); Albumin Level 3.8 g/dL (3.5-5.1); Alkaline Phosphatase 79 U/L (38-126); Anion Gap 8 mmol/L (8-16); Aspartate Amino Transferase 35 U/L (14-36); Bilirubin,Total 0.6 mg/dL (0.2-1.3); Blood Urea Nitrogen 18 mg/dL (7-17); Calcium 8.5 mg/dL (8.4-10.2); Carbon Dioxide 30 mmol/L (22-30); Chloride 93 mmol/L (98-107); Estimated CRCL calculation 87 ml/min; Estimated Glomerular Filt Rate > 60; Glucose 142 mg/dL (65-110); Magnesium 1.6 mg/dL (1.6-2.3); Potassium 3.9 mmol/L (3.4-5.0); Sodium 131 mmol/L (137-145)
[2021-10-20] MEDS: LEVOTHYROXINE SODIUM 100 MCG TABLET 200 MCG PO (06:38)
[2021-10-20 07:43] LABS: Hemoglobin A1C 6.9 % (<5.7)
[2021-10-20] MEDS: POTASSIUM CHLORIDE 20 MEQ TABLET.ER PO (08:32)
[2021-10-20] MEDS: FERROUS SULFATE 324 MG TABLET PO (08:32)
[2021-10-20] MEDS: FOLIC ACID 1 MG TABLET PO (08:33)
[2021-10-20] MEDS: FUROSEMIDE 40 MG TABLET PO (08:33)
[2021-10-20] MEDS: DULoxetine HCL 60 MG CAPSULE.DR PO (08:33)
[2021-10-20] MEDS: ATORVASTATIN 10 MG TABLET PO (08:33)
[2021-10-20] MEDS: MAGNESIUM OXIDE 400 MG TABLET PO (08:33)
[2021-10-20] MEDS: aMILoride HCL 5 MG TABLET 10 MG PO (08:33)
[2021-10-20] MEDS: APIXABAN 5 MG TABLET PO (08:33)
[2021-10-20] MEDS: FAMOTIDINE 20 MG TABLET PO (08:33)
[2021-10-20] MEDS: MAGNESIUM CHLORIDE 64 MG TABLET PO (08:34)
[2021-10-20] MEDS: ERGOCALCIFEROL 50,000 UNIT CAPSULE 50000 UNITS PO (08:34)
[2021-10-20] MEDS: METOPROLOL SUCCINATE EXT REL 25 MG TABCR PO (08:37)
[2021-10-20] MEDS: modafiniL (*CRX) 200 MG TABLET PO (08:37)
--- NOTE | 2021-10-20 08:37 | PM.PNCARD ---
Progress Note: A&P Assessment and Plan (1) Acute dyspnea: Code(s): R06.00 - Dyspnea, unspecified Status: Acute Assessment and Plan: Patient denies shortness of breath but apparently appeared SOB on EMS arrival. Has not been hypoxic and ABGs look pretty good. Not clearly in any acute CHF. No strong evidence for pulmonary embolus. Stable from respiratory standpoint. On room air. Will have patient get out of bed, work with physical therapy and see how she does without O2. Changed IV furosemide to p.o. on 10/18/2021 Possible discharge soon (2) Confusion: Code(s): R41.0 - Disorientation, unspecified Status: Acute Assessment and Plan: Resolved. (3) Hypomagnesemia: Code(s): E83.42 - Hypomagnesemia Status: Acute Assessment and Plan: Chronic problem, oral magnesium causes diarrhea. Trying Slow-Mag 64 mg daily and see if that is tolerable. Continue amiloride 10 mg qd to help preserve magnesium Kcl to 20 mEq once daily May need to reduce furosemide Mag 1.6 today Follow closely as an outpatient w/ BMP/magnesium level, and office FU (4) Elevated troponin: Code(s): R79.89 - Other specified abnormal findings of blood chemistry Status: Acute Assessment and Plan: Nonspecific; no ACS. (5) Chronic diastolic CHF (congestive heart failure): Code(s): I50.32 - Chronic diastolic (congestive) heart failure Status: Acute Assessment and Plan: Apparently short of breath at home. Not clear if patient truly had an acute exacerbation as her edema was minimal, proBNP was low for her, and chest x-ray was unremarkable. Received some IV furosemide ; now back to her oral furosemide. (6) Atrial fibrillation: Qualifiers: Atrial fibrillation type: unspecified chronic Qualified Code(s): I48.20 - Chronic atrial fibrillation, unspecified Code(s): I48.91 - Unspecified atrial fibrillation Status: Acute Assessment and Plan: Persistent AFib, status post AV node ablation and biventricular pacemaker, stable, tolerating Eliquis. Subjective Date/time seen: 10/20/21 08:37 Interval history: 76-year-old female admitted with shortness of breath and confusion. Followed by Dr. Donovan for her history of AFib, av node ablation, biventricular pacer, chronic diastolic CHF. Also has a history of morbid obesity, chronic lower extremity edema, narcolepsy, hypothyroidism, diabetes, hypertension, MOISE on CPAP. 10/17/2021: Shortness of breath and confusion of unclear etiology. ProBNP 1100 which is lowest she has been. Check lower extremity Dopplers, labs, ABG, trial of Lasix 40 mg IV push x1 10/18/2021: Patient says she never felt bad and was not short of breath, just cold. Mild dry cough for 2 weeks. Eager to go home as it is her 's 82th birthday this weekend and her 4 children are coming into town. Last night was ?miserable? because she had a lot of musculoskeletal pain and she would like to get out of bed. No shortness of breath or other problems today. O2 sat in the 90s, afebrile, BP stable. Not much diuresis. Mildly elevated troponins. Magnesium was 0.8, now 1.7 after supplementation. Echo reviewed as below, EF greater than 70%, no significant valve disease. Added amiloride and Slow-Mag, increase activity. Date of service 10/19/2021: Patient not feeling well today, very disappointed that she could not be home to see her 's 82th birthday and family members. Did not want to participate with physical therapy. Diuresed 3 L yesterday, 1800 cc today on po Lasix.. Now on room air. Magnesium low again. Date of service 10/20/2021: States she ?feels fine. ? Denies any shortness of breath. Remains stable on room air. Wondering when she can go home. Review of Systems Review of Systems: All systems reviewed & are unremarkable except as noted in HPI and below Constitutional: Constitutional: Reports as per HP
[2021-10-20] MEDS: BETAMETHASONE/CLOTRIMAZOLE CR 15 GM TUBE 1 APPLIC TOPICAL (08:39)
--- NOTE | 2021-10-20 11:23 | PCPTNOTE ---
Patient requests PT return this afternoon for PT treatment. Patient states she did not sleep well for days and just completed OT eval. She states her will return later with her walker from home. PT will follow up this afternoon.
[2021-10-20] MEDS: modafiniL (*CRX) 200 MG TABLET 100 MG PO (13:03)
--- NOTE | 2021-10-20 14:32 | PM.DS ---
DS: Admitting Diagnosis Discharge Date 10/20/21 Admitting Diagnosis dyspnea DS: Discharge Diagnosis Discharge Diagnosis (1) Shortness of breath: Code(s): R06.02 - Shortness of breath Status: Acute Assessment and Plan: -Per ER records patient has never been hypoxic on room air. -She was placed on oxygen at 2 L for comfort. Patient states she does not wear oxygen at home. -Chest x-ray shows no pulmonary vascular congestion nor does it show any infiltrate or atelectasis. -Patient has no hypoxia or tachycardia -CTA was ordered, but unfortunately patient will not feel to fit in the machine so the test was canceled. -Patient's Wells score for pulmonary embolism is 1.5 which puts her at low risk. The only risk that she does have his immobilization secondary to her morbid obesity. -venous dopplers negative for DVT -IV lasix stopped per cardiology -Weaned off of oxygen, she is 98% on RA at this time, denies sob currently -ambulated with her walker from home today, went 40 feet, transferred 3 times from bed to chair. Dipped to 88% one time but came right back up, otherwise was not hypoxic during the entire physical therapy session. I suspect this is due to her deconditioning and morbid obesity with BMI of 74.1. (2) Elevated troponin: Code(s): R79.89 - Other specified abnormal findings of blood chemistry Status: Acute Assessment and Plan: -Patient's initial troponin was 0.421 and flattened at 0.404. -Cardiology consulted -does not seem to be ACS -stable for discharge per cardiology (3) Generalized weakness: Code(s): R53.1 - Weakness Status: Acute Assessment and Plan: -This is a chronic issue for patient. -no signs of infection, vitals stable -PT/OT eval, she was able to go 40 feet with her walker from home today and transfer from bed to chair 3 times during therapy (4) Atrial fibrillation: Qualifiers: Atrial fibrillation type: unspecified chronic Qualified Code(s): I48.20 - Chronic atrial fibrillation, unspecified Code(s): I48.91 - Unspecified atrial fibrillation Status: Acute Assessment and Plan: -Patient is paced at this time. -Continued with home anticoagulation. (5) Hypomagnesemia: Code(s): E83.42 - Hypomagnesemia Status: Acute Assessment and Plan: -monitor and replace -pt is non compliant with her mag supplement at home -per cardiology, add amiloride, reduce KCL, possibly will reduce lasix -will be followed closely outpatient w/ repeat BMP and mag s/p discharge (6) Facial droop: Code(s): R29.810 - Facial weakness Status: Acute Assessment and Plan: -not witness by myself or staff, reported by patient's daughter in law who is an RN -stat CT head no acute findings -normal neurological exam without facial droop on my exam -unable to peform MRI due to pacemaker DS: Summary Hospital Course Reason for hospitalization: 76-year-old female w/ hx of atrial fibrillation status post AV node ablation with a Bi V pacemaker placed, congestive heart failure with a preserved ejection fraction, diabetes mellitus, hypothyroidism, obstructive sleep apnea, narcolepsy, iron deficiency anemia, morbid obesity, and noncompliance, admitted to the hospital for sob. Please see HPI for details. Hospital Course: Please see above for details of hospital course. Status at Discharge Cognitive/behavioral status at discharge: stable Functional status at discharge: uses cane/walker Time Spent with Patient Time attestation: Total time spent providing and/or coordinating discharge services: 35 Time spent: Greater than 30 minutes Exam Narrative: Constitutional: Patient is a 76-year-old morbidly obese female who is in no acute distress at this time. BMI 71.1, 193.7 kg. HEENT: Moist mucous membranes. No scleral icterus. Neck: Supple Lungs: Lung sounds a
== END 2021-10-20 17:31 | disposition home health service (06) ==
LOC: ANHED 08:18 → ANHIMU 11:54 → ANH3MEDSUR 10-19 13:20
PROVIDERS: Internal Medicine Cardiovascular Disease; Nurse Practitioner Adult Health; Admitting Provider Hospitalist; Emergency Provider Emergency Medicine; PCP Family Medicine; Visit Provider Physician Assistant
DX: R06.00 Dyspnea, unspecified (principal); R77.8 Other specified abnormalities of plasma proteins; R53.1 Weakness; E83.42 Hypomagnesemia; I48.91 Unspecified atrial fibrillation; R41.0 Disorientation, unspecified; R60.0 Localized edema; R29.810 Facial weakness; I13.0 Hypertensive heart and chronic kidney disease with heart failure and stage 1 through stage 4 chronic kidney disease, or unspecified chronic kidney disease; I50.33 Acute on chronic diastolic (congestive) heart failure; N18.30 Chronic kidney disease, stage 3 unspecified; E11.22 Type 2 diabetes mellitus with diabetic chronic kidney disease; E78.5 Hyperlipidemia, unspecified; E03.9 Hypothyroidism, unspecified; G47.33 Obstructive sleep apnea (adult) (pediatric); G47.419 Narcolepsy without cataplexy; D50.9 Iron deficiency anemia, unspecified; G25.81 Restless legs syndrome; E55.9 Vitamin D deficiency, unspecified; E66.01 Morbid (severe) obesity due to excess calories; Z68.45 Body mass index [BMI] 70 or greater, adult; Z95.0 Presence of cardiac pacemaker; Z87.891 Personal history of nicotine dependence; Z79.01 Long term (current) use of anticoagulants; Z79.84 Long term (current) use of oral hypoglycemic drugs; Z79.891 Long term (current) use of opiate analgesic
CPT/HCPCS: 36415; 36600; 70450; 71046; 80048; 80053; 81001; 82805; 82948; 83036; 83735; 83880; 84443; 84484; 85025; 85610; 85730; 93005; 93970; 94002; 94003; 96365; 96375; 96376; 97163; 97166; 97530; 99285; A9270; C8929; G0378; J1940; J3475; Q9957

== ENCOUNTER 2022-05-05 09:31 | Emergency (ER) | payer MEDICARE, SELFPAY ==
[2022-05-05] VITALS (12 sets, daily range): BP systolic 109–132; BP diastolic 44–63; PULSE 70–132; RESP 16–24; TEMP 36.8; O2SAT 98–99
--- NOTE | ~2022-05-05 | US_ITS ---
EXAMINATION: US pelvic complete DATE: 05/05/2022 11:42 INDICATION: Vaginal bleeding Comparison:Ultrasound dated 06/09/2019 TECHNIQUE: Multiple transabdominal sonographic images of the pelvis performed. Patient refused transv aginal examination. FINDINGS: The uterus measures 17.5 x 8.3 x 10 cm. The endometrium is thickened containing complex flu id and debris measuring up to 5.8 cm thickness. The ovaries are not visualized. There is no free fluid in the pelvis. There are no abnormal masses seen on either side. IMPRESSION: 1. Enlarged uterus with thickened endometrium containing fluid and debris measuring up to 5.8 cm. The differential diagnosis includes endometrial hyperplasia, polyp and carcinoma. Biopsy is recommended. Reviewed, dictated and finalized at location B. IMPRESSION: 1. Enlarged uterus with thickened endometrium containing fluid and debris measu ring up to 5.8 cm. The differential diagnosis includes endometrial hyperplasia, polyp and carcinoma. Biopsy is recommended.
[2022-05-05 10:16] LABS: Basophils Percent Auto 0.3 % (0.2-1.2); Eosinophils Absolute Auto 0.3 K/mm3 (0-0.3); Eosinophils Percent Auto 4.1 % (0-4.4); Hematocrit 36.5 % (37.0-47.0); Hemoglobin 11.4 g/dL (12.0-15.0); Immature Granulocyte Absolute 0.03 K/mm3 (0.00-0.031); Immature Granulocyte Percent A 0.5 % (0-0.5); Lymphocytes Absolute Auto 0.84 K/mm3 (0.9-3.2); Lymphocytes Percent Auto 13.4 % (18.3-44.2); Mean Corpuscular HGB Conc 31.2 g/dl (32-36); Mean Corpuscular Hemoglobin 32.7 pg (26-34); Mean Corpuscular Volume 104.6 fl (80-100); Mean Platelet Volume 9.9 fl (7.4-10.4); Monocytes Absolute Auto 0.3 K/mm3 (0.1-0.6); Neutrophils Absolute Auto 4.9 K/mm3 (1.3-6.7); Neutrophils Percent Auto 77.7 % (45.5-73.1); Platelet Count Result 204 k/mm3 (150-375); Red Blood Count 3.49 M/mm3 (4.2-5.4); Red Cell Distribution Width 13.5 % (11.5-14.5); White Blood Count 6.3 K/mm3 (4.5-10.0)
[2022-05-05 10:17] LABS: Appearance Urine Cloudy (Clear); Bilirubin Urine Negative (Negative); Color Urine Yellow (Yellow); Glucose Urine UA Negative (Negative); Ketones Urine Trace mg/dL (Negative); Leukocyte Esterase Ur 1+ LEU/UL (Negative); Nitrate Urine Positive (Negative); Protein Urine Trace mg/dL (Negative)
[2022-05-05 10:25] LABS: Add Urine Microscopic? YES; Blood Urine Trace-Intact (Negative)
[2022-05-05 10:30] LABS: INR 1.4; Partial Thromboplastin Time 36.7 SECONDS (22.3-36.8); Prothrombin Time 16.9 Seconds (11.1-14.7)
[2022-05-05 10:33] LABS: Bacteria Urine 1+ /hpf; Mucus Urine Rare /lpf; Squamous Epithelial Cell Urine Occasional /hpf (Few); WBC Urine >75 /hpf
[2022-05-05 10:38] LABS: Alanine Aminotransferase 15 U/L (6-35); Alkaline Phosphatase 76 U/L (38-126); Anion Gap 12 mmol/L (8-16); Aspartate Amino Transferase 18 U/L (14-36); Bilirubin,Total 0.2 mg/dL (0.2-1.3); Blood Urea Nitrogen 15 mg/dL (7-17); Calcium 9.7 mg/dL (8.4-10.2); Carbon Dioxide 31 mmol/L (22-30); Chloride 95 mmol/L (98-107); Estimated CRCL calculation 72 ml/min; Estimated Glomerular Filt Rate 54; Glucose 237 mg/dL (65-110); Potassium 4.3 mmol/L (3.4-5.0); Sodium 138 mmol/L (137-145)
--- NOTE | 2022-05-05 13:04 | ED.GENADULT ---
HPI - General Adult General Chief complaint: GI Bleed Stated complaint: GI bleed Time Seen by Provider: 05/05/22 09:41 History of Present Illness HPI narrative: Patient is a 77-year-old female who presents ER with concerns of bleeding into her depends. She is unsure where it is coming from. It occurred 3 times today. No diarrhea. No burning urination. No abdominal pain. She is on Eliquis. No lightheadedness. Related Data Home Medications Medication Instructions Recorded Confirmed torsemide 20 mg tablet 20 mg PO QAM 02/26/22 02/26/22 Allergies Allergy/AdvReac Type Severity Reaction Status Date / Time bacitracin Allergy Intermediate Swelling Verified 05/05/22 09:41 neomycin Allergy Intermediate Swelling Verified 05/05/22 09:41 Penicillins Allergy Unknown Unknown Verified 05/05/22 09:41 polymyxin B Allergy Unknown Unknown Verified 05/05/22 09:41 Review of Systems Review of Systems: All systems reviewed & are unremarkable except as noted in HPI and below Constitutional: Constitutional: Denies chills, Denies fatigue and Denies fever(s) ENT: Denies nasal congestion and Denies sore throat Cardiovascular: Cardiovascular: Denies chest pain, Denies rapid heart rate and Denies radiating jaw, neck or arm pain Respiratory: Respiratory: Denies cough and Denies dyspnea Gastrointestinal: Gastrointestinal: Denies abdominal pain, Denies nausea and Denies vomiting Comments: Possible rectal bleeding Genitourinary: Genitourinary: Reports abnormal vaginal bleeding (Possible), Reports hematuria (Possible), Denies nocturia and Denies pelvic pain PMFSH Past Medical History Medical History Atrial fibrillation Failed cardioversion x2. Status post AV malathi ablation and biventricular pacemaker insertion on 04/22/2020. Chronic kidney disease, stage 3 Baseline creatinine is around 1.0. 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 Family History Family History Father Hypertension Family history of coronary artery disease Social History Social History Social History: The patient lives in [facility] [place] her . They have 4 sons. She retired from working at the [employer] in [place]. She smoked 0.5 to 0.75 packs of cigarettes a day for about 30 years and quit in 1994. No alcohol or illicit substance abuse. Her Juan David and son Andrea are her surrogate decision makers and she is listed as a full code. Smoking packs per day: 0.75 Smoking cigarettes per day: 15.0 Years smoked: 30 Smoking pack-years: 22.50 Smoking status: Current every day smoker Tobacco type: cigarettes Second hand tobacco smoke exposure: Yes Alcohol intake: former Alcohol use details: rarely Substance use: never Substance use type: does not use Gender identity (if verbalized by the patient): Female Spiritual care concerns: No Exam Narrative: GENERAL: Well-appearing, morbidly obese, and in no acute distress. HEAD: Normocephalic, atraumatic. EYES: PERRL and EOMI. ENT:Mucous membranes moist. CHEST: Clear to auscultation. No respiratory distress. HEART: Regular rate and rhythm. Normal peripheral pulses. ABDOMEN: Soft, nontender, protuberant abdome
== END 2022-05-05 14:04 | disposition home or self-care (01) ==
PROVIDERS: Emergency Provider Emergency Medicine; PCP Family Medicine
DX: N95.0 Postmenopausal bleeding (principal); I48.91 Unspecified atrial fibrillation; I12.9 Hypertensive chronic kidney disease with stage 1 through stage 4 chronic kidney disease, or unspecified chronic kidney disease; E11.22 Type 2 diabetes mellitus with diabetic chronic kidney disease; N18.30 Chronic kidney disease, stage 3 unspecified; E78.5 Hyperlipidemia, unspecified; E03.9 Hypothyroidism, unspecified; E66.01 Morbid (severe) obesity due to excess calories; Z68.44 Body mass index [BMI] 60.0-69.9, adult; G47.33 Obstructive sleep apnea (adult) (pediatric); E55.9 Vitamin D deficiency, unspecified; G25.81 Restless legs syndrome; Z95.0 Presence of cardiac pacemaker; Z98.84 Bariatric surgery status; Z98.42 Cataract extraction status, left eye; Z98.41 Cataract extraction status, right eye; Z87.891 Personal history of nicotine dependence; Z79.01 Long term (current) use of anticoagulants; Z79.84 Long term (current) use of oral hypoglycemic drugs; N85.2 Hypertrophy of uterus
CPT/HCPCS: 36415; 51701; 76856; 80053; 81001; 85025; 85610; 85730; 86850; 86900; 86901; 87077; 87086; 87186; 99284

== ENCOUNTER 2022-05-29 00:19 | Day surgery (SDC) | payer MEDICARE, SELFPAY ==
--- NOTE | 2022-05-21 10:13 | PC.NURSE ---
Report to the Outpatient Waiting Room, entrance under the green pavilion located off [facility], at time __07 on date _05/29/22 . OR Time: __929 . Time changes happen often and if your time is changed the preop area will call you the afternoon before. - You and your visitor will be asked to self-screen and do not enter if you have any COVID symptoms. - We encourage only one visitor and NO visitors under age 16 are allowed at this time. Your visitor will receive communication by the phone number that is given day of service. - The patient visitor is requested to social distance or may leave the building when not with patient due to restrictions. - A mask is required within the hospital. Patients may have clear liquids (water, carbonated beverages, clear teas, apple juice) until 3 hours prior to surgery with a maximum of 20 ounces. - No food from midnight until time of surgery - Infants may have breast milk until 4 hours before surgery, formula 6 hours prior to surgery. - Children will be allowed to drink immediately following surgery. If applicable, please bring a bottle or sippy cup to assist with drinking. Juice, water, soda, and popsicles are readily available. For infants on formula, please bring formula the day of surgery. Pacifiers are allowed. Take the following medications with a SIP of water the morning of surgery: __duloxetine,levothyroxine,,metoprolol Medications to discontinue per physician __apixaban 3 days pre op_per dr daniel robertson and dr perales Date to take last dose___05/25/22 Please no make-up, nail greek, hairspray, perfume, deodorant, or body powder the day of surgery. No jewelry (including any body piercings) or valuables the day of surgery, leave them at home. Please take a shower or bath the night before, or the morning of, surgery with an antibacterial soap. Wear comfortable, loose fitting clothing. Children are encouraged to wear pajamas. - Jewelry must be removed prior to entering the operating room. Rings and piercings that are not removed may be cut off. - The hospital will not accept responsibility for valuables. - Please leave all valuables, including medications, at home the day of surgery. If you are going home after surgery, a licensed local company flatbed truck driver must drive you home. - NO public transportation without another adult. - We recommend that an adult stay with you for 24 hours following discharge. - We also recommend that you do not drive, make important decision, drink alcoholic beverages, or take any drugs that were not prescribed by your health care provider for at least 24 hours after your discharge time. For Pediatric surgeries, we recommend two adults accompany the child home. Follow any additional instructions given to you from your surgeon. If you or anyone in your household have experienced Covid symptoms in the past week, please notify your surgeon or the nurse liaison at the phone number below for possible testing. Telephone instructions given to _patient and asked if any additional questions and then verbalized understanding. Patient advised to call surgeon office or pre surgery nurse liaison [phone] if any additional questions.
[2022-05-21 10:21] VITALS: BMI 66.5
--- NOTE | 2022-05-26 07:50 | PM.IMHP ---
H&P: HPI History of Present Illness Date/Time: 05/26/22 07:50 Chief Complaint: Postmenopausal bleed Narrative: A 77-year-old female Eliquis twice a day for cardiac issues who is admitted for hysteroscopy D and C secondary to postmenopausal bleeding. Have been unable to do exam on her as she is confined to a wheelchair and she has a very large. She takes multiple medications including Eliquis which she will stop 48hours prior to admission. Risks and benefits reviewed in great detail [facility] Past Medical History Medical History Atrial fibrillation Failed cardioversion x2. Status post AV malathi ablation and biventricular pacemaker insertion on 04/22/2020. Chronic kidney disease, stage 3 Baseline creatinine is around 1.0. 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 Family History Family History Father Hypertension Family history of coronary artery disease Social History Social History Social History: The patient lives in [facility] with her . They have 4 sons. She retired from working at the [employer] in [place]. She smoked 0.5 to 0.75 packs of cigarettes a day for about 30 years and quit in 1994. No alcohol or illicit substance abuse. Her Juan David and son Andrea are her surrogate decision makers and she is listed as a full code. Smoking packs per day: 0.75 Smoking cigarettes per day: 15.0 Years smoked: 30 Smoking pack-years: 22.50 Smoking status: Former smoker Tobacco type: cigarettes Second hand tobacco smoke exposure: Yes Smoking end date: 08/09/04 Alcohol intake: former Alcohol use details: rarely Substance use: never Substance use type: does not use Living arrangements: with family Gender identity (if verbalized by the patient): Female Spiritual care concerns: No Meds Home Medications and Allergies Home Medications Medication Instructions Recorded Confirmed Type ferrous sulfate 325 mg (65 mg 324 mg PO BIDWM #60 tabs 08/13/20 05/21/22 Rx iron) tablet metoprolol succinate 50 mg 25 mg PO DAILY #90 tabs 09/04/20 05/21/22 Rx tablet,extended release 24 hr clotrimazole-betamethasone 1 1 applic topical BID #15 grams 12/19/20 05/21/22 Rx %-0.05 % topical cream trazodone 50 mg tablet 50 mg PO .QHS #90 tabs 04/04/21 05/21/22 Rx folic acid 1 mg tablet 1 mg PO DAILY #1 tablet 07/18/21 05/21/22 Rx magnesium chloride 71.5 mg 64 mg PO QAM 30 days #27 tabs 10/24/21 05/21/22 Rx (magnesium chloride) tablet,delayed release (Slow-Mag) amiloride 5 mg tablet 5 mg PO DAILY 30 days #30 tabs 11/20/21 05/21/22 Rx apixaban 5 mg tablet (Eliquis) 5 mg PO BID #30 tabs 11/20/21 05/21/22 Rx hydrocodone 5 mg-acetaminophen 325 1 tablet PO DAILY PRN pain #7 tabs 11/20/21 05/21/22 Rx mg tablet modafinil 200 mg tablet 200 mg PO BID #180 tabs 11/20/21 05/21/22 Rx sodium, calcium, magnesium, 2.25 g (4.5 mL) PO BID #180 mL 11/20/21 05/21/22 Rx potassium oxybates 0.5 gram/mL oral soln (Xywav) atorvastatin 10 mg tablet 10 mg PO DAILY #90 tabs 12/12/21 05/21/22 Rx duloxetine 60 mg capsule,delayed 60 mg PO DAILY #90 caps 12/12/21 05/21/22 Rx release levothyroxine 200 mcg tablet 200 mcg PO DAILY #90 tabs 0
--- NOTE | 2022-05-28 13:38 | WPDANESEPPF ---
Anes - Initial Pre Proc Eval Procedure: Operation Date: 05/29/22 09:30 Proposed Procedures p Hysteroscopy Dilation and Curettage - Flaquito Bar MD Date/Time: 05/28/22 13:38 Surgeon: Flaquito Bar MD Pre Op Diagnosis: post menopausal bleeding Patient Data Age: 77 Gender: F Height: 1.65 m Weight: 181.45 kg Allergies Allergy/AdvReac Type Severity Reaction Status Date / Time bacitracin Allergy Intermediate Swelling Verified 05/21/22 09:54 neomycin Allergy Intermediate Swelling Verified 05/21/22 09:54 Penicillins Allergy Unknown Unknown Verified 05/21/22 09:54 polymyxin B Allergy Unknown Unknown Verified 05/21/22 09:54 Home Medications Medication Instructions Recorded Confirmed Type ferrous sulfate 325 mg (65 mg 324 mg PO BIDWM #60 tabs 08/13/20 05/21/22 Rx iron) tablet metoprolol succinate 50 mg 25 mg PO DAILY #90 tabs 09/04/20 05/21/22 Rx tablet,extended release 24 hr clotrimazole-betamethasone 1 1 applic topical BID #15 grams 12/19/20 05/21/22 Rx %-0.05 % topical cream trazodone 50 mg tablet 50 mg PO .QHS #90 tabs 04/04/21 05/21/22 Rx folic acid 1 mg tablet 1 mg PO DAILY #1 tablet 07/18/21 05/21/22 Rx magnesium chloride 71.5 mg 64 mg PO QAM 30 days #27 tabs 10/24/21 05/21/22 Rx (magnesium chloride) tablet,delayed release (Slow-Mag) amiloride 5 mg tablet 5 mg PO DAILY 30 days #30 tabs 11/20/21 05/21/22 Rx apixaban 5 mg tablet (Eliquis) 5 mg PO BID #30 tabs 11/20/21 05/21/22 Rx hydrocodone 5 mg-acetaminophen 325 1 tablet PO DAILY PRN pain #7 tabs 11/20/21 05/21/22 Rx mg tablet modafinil 200 mg tablet 200 mg PO BID #180 tabs 11/20/21 05/21/22 Rx sodium, calcium, magnesium, 2.25 g (4.5 mL) PO BID #180 mL 11/20/21 05/21/22 Rx potassium oxybates 0.5 gram/mL oral soln (Xywav) atorvastatin 10 mg tablet 10 mg PO DAILY #90 tabs 12/12/21 05/21/22 Rx duloxetine 60 mg capsule,delayed 60 mg PO DAILY #90 caps 12/12/21 05/21/22 Rx release levothyroxine 200 mcg tablet 200 mcg PO DAILY #90 tabs 12/12/21 05/21/22 Rx metformin 500 mg tablet,extended 1,000 mg PO DAILY #180 tabs 12/26/21 05/21/22 Rx release 24 hr ergocalciferol (vitamin D2) 1,250 50,000 unit PO WEEKLY #12 caps 01/02/22 05/21/22 Rx mcg (50,000 unit) capsule torsemide 20 mg tablet 20 mg PO QAM 02/26/22 05/21/22 History potassium chloride 20 mEq 20 meq PO BID #180 tabs 04/15/22 05/21/22 Rx tablet,extended release (K-Tab) Patient hx anesthesia problems: none Family hx anesthesia problems: none Results Review: All pre-operative results and documents have been reviewed as part of the pre-operative evaluation. [facility] Past Medical History Medical History (Updated 05/28/22 @ 13:39 by Mirza Rivera, ) Atrial fibrillation Failed cardioversion x2. Status post AV malathi ablation and biventricular pacemaker insertion on 04/22/2020. CHF (congestive heart failure) EF >70% Chronic kidney disease, stage 3 Baseline creatinine is around 1.0. Diabetes type 2, controlled Dyslipidemia Hyperhidrosis Status post excision of sweat glands. Hypertension Hypothyroidism Morbid obesity Narcolepsy Obstructive sleep apnea on CPAP Osteoarthritis Pacemaker Restless leg syndrome Type 2 diabetes mellitus Urinary Incontinence Vitamin D deficiency Surgical History Surgical History History of atrioventricular malathi ablation (~04/22/20) History of bilateral cataract extraction History of dilation and curettage History of laparoscopic adjustable gastric banding (~2012) Status post biventricular cardiac pacemaker insertion (~04/22/20) Status post excision of Ulloa's neuroma Left 3rd toe. Family History Family History Father Hypertension Family history of coronary artery disease Social History Social History Social History: The patient lives in
[2022-05-29] VITALS (7 sets, daily range): BP systolic 106–147; BP diastolic 52–70; PULSE 70–86; RESP 13–21; TEMP 36.1–36.9; O2SAT 92–99
--- NOTE | 2022-05-29 06:49 | WPDHPUPDATE1 ---
History and Physical Update Update Date/Time: 05/29/22 06:49 History and Physical has been reviewed, including an updated exam of the patient. There are NO changes in the patient's condition. Risks, benefits, and alternatives have been discussed and questions answered. Patient agrees to proceed with procedure.
[2022-05-29] MEDS: ACETAMINOPHEN 500 MG TABLET 1000 MG PO (08:21)
--- NOTE | 2022-05-29 08:26 | WPDANESEPPF ---
Anes - Initial Pre Proc Eval Procedure: Operation Date: 05/29/22 09:30 Proposed Procedures p Hysteroscopy Dilation and Curettage - Flaquito Bar MD Date/Time: 05/29/22 08:26 Surgeon: Flaquito Bar MD Pre Op Diagnosis: post menopausal bleeding Patient Data Age: 77 Gender: F Height: 1.65 m Weight: 177.5 kg Last Vital Signs Temp 36.1 C L 05/29/22 08:16 Pulse 74 05/29/22 08:16 Resp 20 05/29/22 08:16 BP 147/70 H 05/29/22 08:16 Pulse Ox 96 05/29/22 08:16 O2 Del Method Room Air 05/29/22 08:16 Allergies Allergy/AdvReac Type Severity Reaction Status Date / Time bacitracin Allergy Intermediate Swelling Verified 05/29/22 08:04 neomycin Allergy Intermediate Swelling Verified 05/29/22 08:04 Penicillins Allergy Unknown Unknown Verified 05/29/22 08:04 polymyxin B Allergy Unknown Unknown Verified 05/29/22 08:04 Home Medications Medication Instructions Recorded Confirmed Type ferrous sulfate 325 mg (65 mg 324 mg PO BIDWM #60 tabs 08/13/20 05/21/22 Rx iron) tablet metoprolol succinate 50 mg 25 mg PO DAILY #90 tabs 09/04/20 05/21/22 Rx tablet,extended release 24 hr clotrimazole-betamethasone 1 1 applic topical BID #15 grams 12/19/20 05/21/22 Rx %-0.05 % topical cream trazodone 50 mg tablet 50 mg PO .QHS #90 tabs 04/04/21 05/21/22 Rx folic acid 1 mg tablet 1 mg PO DAILY #1 tablet 07/18/21 05/21/22 Rx magnesium chloride 71.5 mg 64 mg PO QAM 30 days #27 tabs 10/24/21 05/21/22 Rx (magnesium chloride) tablet,delayed release (Slow-Mag) amiloride 5 mg tablet 5 mg PO DAILY 30 days #30 tabs 11/20/21 05/21/22 Rx apixaban 5 mg tablet (Eliquis) 5 mg PO BID #30 tabs 11/20/21 05/21/22 Rx hydrocodone 5 mg-acetaminophen 325 1 tablet PO DAILY PRN pain #7 tabs 11/20/21 05/21/22 Rx mg tablet modafinil 200 mg tablet 200 mg PO BID #180 tabs 11/20/21 05/21/22 Rx sodium, calcium, magnesium, 2.25 g (4.5 mL) PO BID #180 mL 11/20/21 05/21/22 Rx potassium oxybates 0.5 gram/mL oral soln (Xywav) atorvastatin 10 mg tablet 10 mg PO DAILY #90 tabs 12/12/21 05/21/22 Rx duloxetine 60 mg capsule,delayed 60 mg PO DAILY #90 caps 12/12/21 05/21/22 Rx release levothyroxine 200 mcg tablet 200 mcg PO DAILY #90 tabs 12/12/21 05/21/22 Rx metformin 500 mg tablet,extended 1,000 mg PO DAILY #180 tabs 12/26/21 05/21/22 Rx release 24 hr ergocalciferol (vitamin D2) 1,250 50,000 unit PO WEEKLY #12 caps 01/02/22 05/21/22 Rx mcg (50,000 unit) capsule torsemide 20 mg tablet 20 mg PO QAM 02/26/22 05/21/22 History potassium chloride 20 mEq 20 meq PO BID #180 tabs 04/15/22 05/21/22 Rx tablet,extended release (K-Tab) hydrocodone 5 mg-acetaminophen 325 1 tablet PO Q4H PRN pain #14 tabs 05/29/22 Rx mg tablet Patient hx anesthesia problems: none Family hx anesthesia problems: none Results Review: All pre-operative results and documents have been reviewed as part of the pre-operative evaluation. [facility] Past Medical History Medical History (Updated 05/28/22 @ 13:39 by Mirza Rivera DO) Atrial fibrillation Failed cardioversion x2. Status post AV malathi ablation and biventricular pacemaker insertion on 04/22/2020. CHF (congestive heart failure) EF >70% Chronic kidney disease, stage 3 Baseline creatinine is around 1.0. Diabetes type 2, controlled Dyslipidemia Hyperhidrosis Status post excision of sweat glands. Hypertension Hypothyroidism Morbid obesity Narcolepsy Obstructive sleep apnea on CPAP Osteoarthritis Pacemaker Restless leg syndrome Type 2 diabetes mellitus Urinary Incontinence Vitamin D deficiency Surgical History Surgical History History of atrioventricular malathi ablation (~04/22/20) History of bilateral cataract extraction History of dilation and curettage History of laparoscopic adjustable gastric banding (~2012) Status post biventricular cardiac pacemaker insertion (~04/22/20) Status post excision of Mo
[2022-05-29] MEDS: LACTATED RINGERS 1,000 ML 30 ML IV CONT (08:37)
[2022-05-29] MEDS: LIDOCAINE HCL 1% PF 30 ML VIAL 10 ML INFILTRATE (09:35)
--- NOTE | 2022-05-29 09:50 | W.PM.PROC2 ---
Procedure Note - Detailed Date of Procedure 05/29/22 Pre-op Diagnosis post menopausal bleeding Post-op Diagnosis Other (Polypoid mass seen) Procedure Performed hysteroscopy/dilatation /biopsy of polypoid lesion Surgeon Flaquito Bar MD Anesthesia General Indications this is a 77-year-old female with postmenopausal bleeding who has been on Eliquis. Bleeding stopped after she stopped the Eliquis. Findings This was a less than adequate procedure for hysteroscopic. The uterus was not completely visualized to lesion in endocervical area. This was biopsied with a polyp forceps. Due to the large size the patient instrumentation would not for safety evaluation up in endometrial. Description of Procedure Patient was prepped draped sterile fashion placed in the dorsal position. Under excellent endotracheal anesthesia weighted speculum placed in posterior fornix lateral sidewalls retractors were also placed. The cervix was far up into the vagina was grasped with a single-tooth tenaculum. The uterus was unable to be completely sounded due to the large size of the patient was dilated to about 5mm. The 5mm hysteroscope was inserted there was a lesion seen at the endocervical area that appeared as a fibroid or a degenerating fibroid. Polyp forceps was used to biopsy this area. It was felt to be unsafe to attempt to go further up into the endometrial canal without putting the patient at risk for uterine perforation or injury. Instruments then withdrawn. After good biopsy was taken. The patient tolerated the procedure went to recovery in satisfactory condition. Sponge instrument counts were correct. There were no immediate complications Estimated Blood Loss 5 Drains No Packing No Pathology Yes Complications No immediate complications Condition Stable Disposition PACU
[2022-05-29 10:31] LABS: Glucose Point of Care 160 mg/dl (65-105)
== END 2022-05-29 12:13 | disposition home or self-care (01) ==
PROVIDERS: PCP Family Medicine; Visit Provider Obstetrics & Gynecology
PROC: 0U5B8ZZ Destruction of Endometrium, Via Natural or Artificial Opening Endoscopic (ICD-10-PCS; CPT 58563; principal; 2022-05-29 09:30)
DX: N95.0 Postmenopausal bleeding (principal); I48.91 Unspecified atrial fibrillation; I13.0 Hypertensive heart and chronic kidney disease with heart failure and stage 1 through stage 4 chronic kidney disease, or unspecified chronic kidney disease; I50.9 Heart failure, unspecified; N18.30 Chronic kidney disease, stage 3 unspecified; E11.22 Type 2 diabetes mellitus with diabetic chronic kidney disease; E78.5 Hyperlipidemia, unspecified; E03.9 Hypothyroidism, unspecified; G47.33 Obstructive sleep apnea (adult) (pediatric); E55.9 Vitamin D deficiency, unspecified; G25.81 Restless legs syndrome; Z95.0 Presence of cardiac pacemaker; G47.419 Narcolepsy without cataplexy; E66.01 Morbid (severe) obesity due to excess calories; Z68.44 Body mass index [BMI] 60.0-69.9, adult; Z79.01 Long term (current) use of anticoagulants; Z79.84 Long term (current) use of oral hypoglycemic drugs; Z79.891 Long term (current) use of opiate analgesic; Z98.84 Bariatric surgery status; Z87.891 Personal history of nicotine dependence; Z99.3 Dependence on wheelchair
CPT/HCPCS: 58558; 82948; 88305; A9270; J1100; J2405; J2704; J7030; J7120